=== PATIENT | male | born 1960 | race Caucasian/White ===

== ENCOUNTER → 2021-03-25 16:27 | Outpatient (CLI) | payer MEDICAID, SELFPAY ==
[2021-03-25 17:32] LABS: ALB/GLOB Ratio 0.8 RATIO (0.9-2.4); AST(SGOT) 19 U/L (15-37); Alanine Aminotransfer ALT/SGPT 23 U/L (16-61); Albumin, Serum 3.2 g/dL (3.2-5.0); Alkaline Phosphatase 77 U/L (45-117); Anion Gap 4 (5-15); BUN 17 mg/dL (7-18); BUN/Creat Ratio 11.6 RATIO (10-20); Chloride 105 mmol/L (98-107); Creatinine, Serum 1.46 mg/dL (0.70-1.30); EST Glomerular Filtration Rate 52 mL/min (>60); Est Glom Filt Rate - Afr Amer 63 mL/min (>60); Globulin 3.8 g/dL (2.2-4.2); Glucose 96 mg/dL (74-106); PSA,Total - Annual Screen 1.58 ng/mL (0.00-4.00); Potassium 4.4 mmol/L (3.5-5.1); Sodium Level 140 mmol/L (136-145); Thyroid Stim Hormone (TSH) 2.99 uIU/mL (0.358-3.74)
[2021-03-25 17:42] LABS: Absolute Lymphocyte Count 2.42 X10^3/uL (0.83-4.51); Absolute Neutrophil Count 3.7 X10^3/uL (2.0-7.7); Basophil# 0.06 X10^3/uL; Basophil% 0.9 % (0-1); Eosinophil# 0.35 X10^3/uL; Eosinophils% 5.1 % (0-5); Hematocrit 41.9 % (40-54); Hemoglobin 13.7 g/dL (13.0-16.5); Lymphocyte # 2.42 X10^3/ul (0.83-4.51); Lymphocyte % 35.3 % (19-41); Mean Corp Hgb Conc 32.7 g/dL (32-36); Mean Corpuscular Hgb 31.1 pg (27.0-32.0); Mean Platelet Vol. 9.5 fl (6.2-12.0); Monocyte# 0.32 X10^3/uL; Monocyte% 4.7 % (0-10); NRBC Flagged by Analyzer 0 % (0-5); Neutrophil # 3.69 X10^3/uL (2.7-7.7); Neutrophil % 53.9 % (47-70); Platelet Count 282 K/mm3 (150-450); RBC Distribution Width CV 12.1 % (11.6-14.6); RBC Distribution Width SD 42.3 fl (35.1-43.9); Red Blood Count 4.41 M/mm3 (4.6-6.2); White Blood Count 6.9 K/mm3 (4.4-11.0)
[2021-03-26 09:28] LABS: Hepatitis C Antibody Non-Reactive (Nonreactive)
== END ==
PROVIDERS: PCP Family Medicine Geriatric Medicine; Visit Provider Family Medicine Geriatric Medicine
DX: Z12.5 Encounter for screening for malignant neoplasm of prostate (principal); R53.83 Other fatigue; Z13.89 Encounter for screening for other disorder
CPT/HCPCS: 36415; 80053; 84153; 84443; 85025; 86803; G0103

== ENCOUNTER → 2021-04-03 07:29 | Outpatient (CLI) | payer MEDICAID, SELFPAY ==
--- NOTE | 2021-04-03 07:33 | CT_ITS ---
STUDY: LOW DOSE CT LUNG CANCER SCREENING REASON FOR EXAM: Male, 60 years old. CIGARETTE SMOKER. Patient smoked 1 pack per day for 44 years. RADIATION DOSAGE (If Supplied By Facility): CTDIvol = ( 2.01 ) mGy, DLP = ( 73.99 ) mGycm TECHNIQUE: No contrast was administered. Low dose technique was utilized (average mAS-38 and kVp 120). 1.25 mm axial source images with a slice interval of 1.25-mm were reconstructed in lung windows. 2.5 mm axial source images with a slice interval of 2.5-mm were reconstructed in lung windows. 5.0 mm axial source images with a slice interval of 5.0-mm were reconstructed in soft tissue windows. Nodule measured using lung windows on PACS and/or independent workstation with automated measurement of minimum and maximum diameter. Nodule measurement reported as average diameter rounded to the nearest whole number. Growth is defined as an increase ins size of greater than 1.5 mm. COMPARISON: None. NODULES: There is a 4.4 mm calcified granuloma in the left lower lobe. No suspicious nodules are seen. Emphysema: Mild emphysematous changes. Endobronchial lesion: None Aorta: Mild atherosclerotic plaque formation of the aortic arch. Coronary arteries: Coronary artery calcification. Heart: Unremarkable Mediastinal nodes: Benign appearing mediastinal lymph nodes. Other chest and abdominal findings: CT/Low Dose CT Lung Screening IMPRESSION: Lung-RADS category 2 - Continue annual screening with LDCT in 12 months. IMPORTANT NOTES FOR USE: ACR Lung-RADS Version 1.1 Assessment Categories Release Date: 2018 Category: Coded 0-4 bases on nodule(s) with highest degree of suspicion. Negative screen is defined as categories 1 and 2; a positive screen is defined as categories 3 and 4. Category 3 and 4A nodules that are unchanged on interval CT should be coded as category 2, and individuals returned to screening in 12 months. Category 4X: Category 3 or 4 nodules with additional imaging findings that increase the suspicion of lung cancer, such as spiculation, GGN that doubles in size in 1 year, enlarged lymph notes, etc. Category Modifiers: S (significant finding unrelated to lung cancer) Electronically Signed: Ronald Montilla MD at 13:08 EDT , Service support ,
== END ==
PROVIDERS: PCP Family Medicine Geriatric Medicine; Referring Provider Family Medicine Geriatric Medicine; Visit Provider Family Medicine Geriatric Medicine
DX: Z12.2 Encounter for screening for malignant neoplasm of respiratory organs (principal); F17.210 Nicotine dependence, cigarettes, uncomplicated
CPT/HCPCS: 71271

== ENCOUNTER → 2021-04-08 08:24 | Outpatient (CLI) | payer MEDICAID, SELFPAY | PROVIDERS: PCP Family Medicine Geriatric Medicine; Referring Provider Family Medicine Geriatric Medicine; Visit Provider Family Medicine Geriatric Medicine | DX: R68.83 Chills (without fever) (principal) | CPT/HCPCS: 87633; 87635; C9803; U0005; U0003 ==

== ENCOUNTER → 2021-05-07 08:03 | Outpatient (CLI) | payer MEDICAID, SELFPAY ==
--- NOTE | 2021-05-07 08:05 | CT_ITS ---
STUDY: CT ABDOMEN AND PELVIS WITH CONTRAST REASON FOR EXAM: Male, 60 years old. Right inguinal hernia. Prior appendectomy. RADIATION DOSAGE (If Supplied By Facility): CTDIvol = ( 9.75 ) mGy, DLP = ( 496.25 ) mGycm TECHNIQUE: Transaxial images were obtained from the dome of the diaphragm to the symphysis pubis without oral contrast. IV 100mL Isovue-300 was administered. Sagittal and coronal images were reconstructed. Individualized dose optimization techniques were used for this CT. COMPARISON: Comparison is made with prior examination dated 06/07/2012. FINDINGS: Minimal increased markings at the lung bases suggests lobar linear scarring. The visualized portions of the heart are within normal limits. Normal liver. Normal gallbladder and extrahepatic biliary system. Normal spleen. Normal pancreas. Normal bilateral adrenal glands. Normal right kidney. Normal left kidney. Normal visualized stomach. Normal small intestine. There are multiple colonic diverticula consistent with diverticulosis. Diffuse thickening of the sigmoid colon. Localized colitis should be ruled out. The patient is status post appendectomy. There is scattered atherosclerotic calcification of the abdominal aorta, without a demonstrated aneurysm. Normal inferior vena cava. Normal retroperitoneum. Normal urinary bladder. Small bilateral hydroceles worse on the right side. There is enlargement of the prostate gland. It measures 4.2 cm by 4.7 cm. Calcifications are seen along its posterior right lateral aspect. Normal abdominal wall. There are degenerative changes of the visualized lumbar spine. CT/Abdomen/Pelvis W IV Cont ONLY IMPRESSION: Prostatic enlargement. Thickening of the sigmoid colon suggestive of a colitis. Scattered sigmoid diverticula. Bilateral hydroceles more prominent on the right side. Electronically Signed: Ronald Montilla MD at 10:13 EST , Service support ,
== END ==
PROVIDERS: PCP Family Medicine Geriatric Medicine; Referring Provider Surgery; Visit Provider Surgery
DX: K40.90 Unilateral inguinal hernia, without obstruction or gangrene, not specified as recurrent (principal)
CPT/HCPCS: 74177; Q9967

== ENCOUNTER 2021-06-29 13:39 | Outpatient (CLI) | payer MEDICAID, SELFPAY ==
--- NOTE | 2021-06-29 13:50 | RAD_ITS ---
INDICATION: ABD.PAIN EXAMINATION/TECHNIQUE: X-RAY - XR Abdomen W/ Decub and/or Erect Views COMPARISON: None FINDINGS: BOWEL GAS PATTERN: Non-obstructive. No bowel or stomach distention. FREE AIR: None seen. ORGANOMEGALY: Not seen. CALCIFICATIONS: Few scattered bilateral renal calculi, largest on the right measuring 4 mm while largest on the left measures 3 mm. LOWER CHEST: No acute pathology. BONES AND SOFT TISSUES: Diffuse degenerative changes of the spine. RAD/Abd Inc Decub and/or Erect IMPRESSION: Few scattered bilateral renal calculi, largest on the right measuring 4 mm while largest on the left measures 3 mm. No other acute findings. Electronically Signed: Viktor Medel MD at 18:50 EST Tel , Service support ,
== END 2021-06-29 23:59 | disposition short-term general hospital (02) ==
LOC: RAD 13:43
PROVIDERS: PCP Family Medicine Geriatric Medicine; Referring Provider Family Medicine Geriatric Medicine; Visit Provider Family Medicine Geriatric Medicine
DX: N20.0 Calculus of kidney (principal)
CPT/HCPCS: 74019

== ENCOUNTER → 2021-11-23 | Outpatient (CLI) | payer MEDICAID, SELFPAY ==
[2021-11-23 12:34] LABS: Absolute Lymphocyte Count 1.83 X10^3/uL (0.83-4.51); Basophil# 0.09 X10^3/uL; Basophil% 0.9 % (0-1); Eosinophil# 0.56 X10^3/uL; Eosinophils% 5.6 % (0-5); Hematocrit 41.6 % (40-54); Lymphocyte # 1.83 X10^3/ul (0.83-4.51); Lymphocyte % 18.4 % (19-41); Mean Corp Hgb Conc 31.3 g/dL (32-36); Mean Corpuscular Hgb 29.7 pg (27.0-32.0); Mean Corpuscular Volume 95.2 fL (80-94); Mean Platelet Vol. 9.9 fl (6.2-12.0); Monocyte# 0.41 X10^3/uL; Monocyte% 4.1 % (0-10); NRBC Flagged by Analyzer 0 % (0-5); Neutrophil # 7.04 X10^3/uL (2.7-7.7); Neutrophil % 70.7 % (47-70); Platelet Count 467 K/mm3 (150-450); RBC Distribution Width CV 12.7 % (11.6-14.6); RBC Distribution Width SD 44.3 fl (35.1-43.9); Red Blood Count 4.37 M/mm3 (4.6-6.2)
[2021-11-23 13:39] LABS: ALB/GLOB Ratio 0.7 RATIO (0.9-2.4); AST(SGOT) 13 U/L (15-37); Alanine Aminotransfer ALT/SGPT 13 U/L (16-61); Albumin, Serum 3.1 g/dL (3.2-5.0); Alkaline Phosphatase 78 U/L (45-117); Anion Gap 6 (5-15); BUN 28 mg/dL (7-18); BUN/Creat Ratio 29.1 RATIO (10-20); Calcium,Total 9.4 mg/dL (8.5-10.1); Chloride 108 mmol/L (98-107); Creatinine, Serum 0.96 mg/dL (0.70-1.30); EST Glomerular Filtration Rate 84 mL/min (>60); Est Glom Filt Rate - Afr Amer 102 mL/min (>60); Globulin 4.5 g/dL (2.2-4.2); Glucose 97 mg/dL (74-106); Potassium 4.9 mmol/L (3.5-5.1); Protein, Total 7.6 g/dL (6.4-8.2); Sodium Level 139 mmol/L (136-145); Thyroid Stim Hormone (TSH) 1.15 uIU/mL (0.358-3.74); Total Bilirubin < 0.10 mg/dL (0.20-1.00)
== END | disposition home or self-care (01) ==
LOC: LAB 11:05
PROVIDERS: PCP Family Medicine Geriatric Medicine; Referring Provider Family Medicine Geriatric Medicine; Visit Provider Family Medicine Geriatric Medicine
DX: I10 Essential (primary) hypertension (principal)
CPT/HCPCS: 36415; 80053; 84443; 85025

== ENCOUNTER 2022-01-11 05:28 | Inpatient (IN) | payer MEDICAID, SELFPAY ==
[2022-01-11 05:29] VITALS: BP 111/78; PULSE 97; RESP 17; TEMP 37.1; O2SAT 111; BMI 18.6
--- NOTE | 2022-01-11 05:43 | CT_ITS ---
We are attempting to reach an attending provider to discuss findings. An addendum with communication details will be sent when the communication is complete. EXAM: CT ABDOMEN AND PELVIS WITH INTRAVENOUS CONTRAST CLINICAL INDICATION: abd pain TECHNIQUE: Helically acquired images were obtained of the abdomen and pelvis with intravenous contrast. This CT exam was performed using one or more of the following dose reduction techniques: automated exposure control, adjustment of the mA and/or kV according to patient size, and/or use of iterative reconstruction technique. This report was created using [facility] report [employer] technology. CONTRAST: IV 100mL Isovue-300 COMPARISON: CT of 05/07/2021. FINDINGS: LOWER THORAX: Unremarkable. Lung bases are clear. No cardiomegaly. No significant pericardial effusion. ABDOMEN: LIVER: Mild fatty infiltration of the liver. Right hepatic lobe measures 16 cm in cephalocaudal dimension, within normal limits. GALLBLADDER AND BILE DUCTS: Unremarkable. No calcified gallstones. No gallbladder distention or wall edema. No intra- or extrahepatic biliary ductal dilation. PANCREAS: Main pancreatic duct is visualized and is upper normal in caliber measuring up to 3 mm in diameter. No findings of acute pancreatitis or pancreatic mass. VESSELS: Minimal calcific abdominal aorta and its branches. The abdominal aorta is normal in caliber. SMA and KATERIN enhance normally. SPLEEN: Unremarkable. Normal size without focal cystic or solid mass. ADRENALS: Unremarkable. No nodules. KIDNEYS AND URETERS: Mild thinning of the anterior cortex of the right kidney. Multiple nonobstructing right renal calculi, measuring up to 4 mm in diameter. Small wedge-shaped cortical scar at the upper pole of the left kidney. Small simple left renal cyst which requires no follow-up. Punctate nonobstructing stone within the left renal upper pole collecting system. No hydronephrosis or obstructing ureteral stone. STOMACH AND BOWEL: Stomach is decompressed. No periduodenal inflammatory changes or distended small bowel loops. A long segment of mid sigmoid colon shows severe abnormal mural thickening and edema, while the distal sigmoid colon shows a mildly thickened wall. Due to the length of this abnormal segment, the mural thickening and edema is more likely due to colitis rather than diverticulitis. The antimesenteric wall is more thickened and edematous than the mesenteric wall of the thick-walled sigmoid segment, with air bubbles tracking through the thickened antimesenteric wall, and with a cluster of extraluminal gas bubbles posterior to the thick walled segment of mid-sigmoid segment. The clustered extraluminal bubbles lie within a ring enhancing pocket of fluid measuring up to 3.4 cm in transverse diameter by 2.4 cm in AP diameter by 1.8 cm in cephalocaudal dimension. There is more gas than fluid within this pocket. There is enhancement of the mucosa in the thick-walled segment, but the gas within the bowel wall and bubbles of extraluminal gas raise the possibility of bowel wall necrosis and subsequent perforation. Uncomplicated diverticula project from the sigmoid colon. PELVIS: APPENDIX: Absent. No evidence of acute appendicitis. BLADDER: Urinary bladder is nearly empty. REPRODUCTIVE: Mildly prominent prostate gland containing numerous surgical clips or radiation implant seeds. ABDOMEN and PELVIS: INTRAPERITONEAL SPACE: No free fluid within the pelvis. No bubbles free air within the nondependent portion of the abdomen or pelvis. BONES/JOINTS: Degenerative spurring about the lumbar disc spaces. No acute osseous abnormality. No suspicious lytic or blastic abnormality. SOFT TISSUES: Unremarkable. No discrete abdominal or pelvic wall hernia. LYMPH NODES: Unremarkable. No enlarged lymph nodes. OTHER FINDINGS: Dosage: DLP: 228.22 mGy-cm and CTDI: 12.[address]/Abdomen/Pelvis W IV Cont ONLY IMPRESSION: Long segment of abnormally thickened and edematous sigmoid wall, consistent with a severe colitis; air bubbles track through the thickened posterior wall of this segment into a 3 cm pocket of ring-enhancing fluid and air bubbles, indicating perforation with pericolonic abscess. Bilateral renal calculi. No obstructing ureteral stone or hydronephrosis. Prior appendectomy. No findings of small bowel obstruction. Nonstandard communication protocol initiated. Electronically Signed: Miguelangel Hopper MD at 7:39 EDT ,
[2022-01-11] MEDS: Ondansetron 4 MG/2 ML Vial IV (05:51)
[2022-01-11] MEDS: 0.9% Normal Saline 1,000 ML 150 ML IV (05:51)
[2022-01-11] MEDS: Morphine 4 MG/ML Syringe IV (05:52)
[2022-01-11 05:57] LABS: Absolute Lymphocyte Count 2.17 X10^3/uL (0.83-4.51); Absolute Neutrophil Count 5.8 X10^3/uL (2.0-7.7); Basophil# 0.05 X10^3/uL; Basophil% 0.6 % (0-1); Eosinophil# 0.42 X10^3/uL; Eosinophils% 4.7 % (0-5); Hematocrit 41.6 % (40-54); Hemoglobin 13.4 g/dL (13.0-16.5); Lymphocyte # 2.17 X10^3/ul (0.83-4.51); Lymphocyte % 24.1 % (19-41); Mean Corp Hgb Conc 32.2 g/dL (32-36); Mean Corpuscular Volume 93.3 fL (80-94); Mean Platelet Vol. 9.2 fl (6.2-12.0); Monocyte% 5.5 % (0-10); NRBC Flagged by Analyzer 0 % (0-5); Neutrophil # 5.84 X10^3/uL (2.7-7.7); Neutrophil % 64.8 % (47-70); Platelet Count 354 K/mm3 (150-450); RBC Distribution Width CV 13.5 % (11.6-14.6); RBC Distribution Width SD 46.1 fl (35.1-43.9); Red Blood Count 4.46 M/mm3 (4.6-6.2)
[2022-01-11 06:16] LABS: AST(SGOT) 14 U/L (15-37); Alanine Aminotransfer ALT/SGPT 16 U/L (16-61); Alkaline Phosphatase 66 U/L (45-117); Anion Gap 1 (5-15); BUN 21 mg/dL (7-18); BUN/Creat Ratio 21.9 RATIO (10-20); Bilirubin, Direct 0.07 mg/dL (0.00-0.30); Calcium,Total 9.1 mg/dL (8.5-10.1); Chloride 105 mmol/L (98-107); Creatinine, Serum 0.96 mg/dL (0.70-1.30); EST Glomerular Filtration Rate 84 mL/min (>60); Est Glom Filt Rate - Afr Amer 102 mL/min (>60); Estimated Creatinine Clearance 62.05 ml/min; Globulin 4.2 g/dL (2.2-4.2); Glucose 101 mg/dL (74-106); Lipase 137 U/L (73-393); Potassium 4.2 mmol/L (3.5-5.1); Protein, Total 7.2 g/dL (6.4-8.2); Sodium Level 138 mmol/L (136-145)
--- NOTE | 2022-01-11 06:52 | EX.ED.DYSGE1 ---
HPI <Dr. Ysabel العلي MD - Last Filed: 01/11/22 08:32> History of Present Illness Chief Complaint: Abd Pain Informant: patient Onset/Context/Timing Onset: - (Worsened yesterday) Current Severity: Moderate Maximum Severity: Severe Narrative Narrative: Patient present secondary to lower abdominal pain. He has a history of complicated diverticulitis and has been following with Dr. Gonzáles. Patient finished his most recent course of antibiotics in early December. Patient states he is continue to had daily pain but it significantly worsened yesterday. He did have some mild diarrhea yesterday. He also had some vomiting. He reports feeling warm but did not measure his temperature. PFSH <Dr. Ysabel العلي MD - Last Filed: 01/11/22 08:32> [facility] Medical History Acid reflux COPD (chronic obstructive pulmonary disease) Depression Emphysema (subcutaneous) (surgical) resulting from a procedure Hemorrhoids HTN (hypertension) Migraines Home Medications [id number]-[id number]-[id number] 250 mg-250 mg-65 mg tablet (Excedrin Extra Strength) 1 tab PO ONCE 03/31/21 [History Last Taken Unknown] escitalopram oxalate 5 mg tablet (Lexapro) ea PO 03/31/21 [History Last Taken Unknown] hydrocortisone 1 % topical ointment gm topical 03/31/21 [History Last Taken Unknown] metoprolol succinate 25 mg tablet,extended release 24 hr ea PO 03/31/21 [History Last Taken Unknown] tamsulosin 0.4 mg capsule cap PO 03/31/21 [History Last Taken Unknown] Allergy/AdvReac Type Severity Reaction Status Date / Time No Known Allergies Allergy Verified 01/11/22 05:32 Family History Uncle Colon cancer x 3 Father Heart disease Surgical History S/P appendectomy S/P inguinal hernia repair Social History Smoking Status: Current every day smoker tobacco type: cigarettes alcohol intake: never ROS <Dr. Ysabel العلي MD - Last Filed: 01/11/22 08:32> ROS ED Constitutional Constitutional ED: Reports fever(s) and subjective Eyes Eyes: Denies change in vision or discharge from eye(s) ENT ENT ED: Denies discharge from eye(s), rhinorrhea or sore throat Cardiovascular Cardiovascular: Denies chest pain or palpitations Respiratory/Chest Respiratory/Chest: Denies cough or dyspnea Gastrointestinal Gastrointestinal: Reports abdominal pain, diarrhea, nausea and vomiting Genitourinary Genitourinary ED: Denies difficulty urinating or dysuria Musculoskeletal Musculoskeletal: Denies back pain or extremity pain Integumentary Denies Abrasions or rash Neurologic Neurologic: Denies headache(s) or weakness Allergic/Immunologic Allergic/Immunologic ED: Denies lip swelling or urticaria EXAM <Dr. Ysabel العلي MD - Last Filed: 01/11/22 08:32> Physical Exam Const Vital Signs: 01/11/22 05:29 01/11/22 08:14 Temperature 98.8 F 98.5 F Temperature Source Temporal Oral Pulse Rate 97 53 L Respiratory Rate 17 16 Blood Pressure 111/78 106/70 Blood Pressure Mean 89 82 Pulse Ox 111 98 Oxygen Delivery Method Room Air Room Air Positive well nourished and well developed General Appearance ED: well developed HEENT Reports normocephalic and head/scalp atraumatic Eyes PERRL and EOMs intact bilaterally Neck supple Chest Wall inspection of chest normal and palpation of chest normal Resp normal respiratory effort and clear to auscultation bilaterally Cardio regular rate and regular rhythm GI normal to inspection, nondistended, normoactive bowel sounds Palpation: tender other (Diffuse tenderness palpation.) and guarding Back/Spine Negative for no CVA tenderness Extremity normal to inspection Neuro oriented x3 and no sensory deficits noted Sensorium / Orientation: alert Motor Exam: strength 5/5 throughout Psych mental status grossly normal Skin no rashes or lesions noted <Dr. Tor Mercado DO - Last Filed: 01/11/22 09:35> Physical Exam Const Vital Signs: 01/11/22 05:29 01/11/22 08:14 Temperature 98.8 F 98.5 F Temperature Source Temporal Oral Pulse Rate 97 53 L Respiratory Rate 17 16 Blood Pressure 111/78 106/70 Blood Pressure Mean 89 82 Pulse Ox 111 98 Oxygen Delivery Method Room Air Room Air MDM <Dr. Ysabel العلي MD - Last Filed: 01/11/22 08:32> MDM MDM Narrative Medical decision making narrative: Patient given morphine and Zofran for pain control along with IV fluids. Lab work obtained as well as CT scan of the abdomen pelvis. Lab Data Attestation: I reviewed the patient's lab results. Labs: Laboratory Results - last 24 hr 01/11/22 01/11/22 01/11/22 05:51 05:51 05:52 WBC 9.0 RBC 4.46 L Hgb 13.4 Hct 41.6 MCV 93.3 MCH 30.0 MCHC 32.2 RDW Std Deviation 46.1 H RDW Coeff of Loc 13.5 Plt Count 354 MPV 9.2 Immature Gran % (Auto) 0.300 Neut % (Auto) 64.8 Lymph % (Auto) 24.1 [place] % (Auto) 5.5 Eos % (Auto) 4.7 Baso % (Auto) 0.6 Absolute Neuts (auto) 5.8 Absolute Lymphs (auto) 2.17 Nucleated RBC % 0 Sodium 138 Potassium 4.2 Chloride 105 Carbon Dioxide 32.0 Anion Gap 1 L BUN 21 H Creatinine 0.96 Estim Creat Clear Calc 62.05 Est GFR (MDRD) Af Amer 102 Est GFR (MDRD) Non-Af 84 BUN/Creatinine Ratio 21.9 H Glucose 101 Lactic Acid 0.8 Calcium 9.1 Total Bilirubin 0.20 Direct Bilirubin 0.07 AST 14 L ALT 16 Alkaline Phosphatase 66 Total Protein 7.2 Albumin 3.0 L Globulin 4.2 Lipase 137 Radiography Diagnostic Testing: Clinical Impression(s) from Imaging Studies Abdomen/Pelvis CT 01/11/22 05:43 IMPRESSION: Long segment of abnormally thickened and edematous sigmoid wall, consistent with a severe colitis; air bubbles track through the thickened posterior wall of this segment into a 3 cm pocket of ring-enhancing fluid and air bubbles, indicating perforation with pericolonic abscess. Bilateral renal calculi. No obstructing ureteral stone or hydronephrosis. Prior appendectomy. No findings of small bowel obstruction. Nonstandard communication protocol initiated. Electronically Signed: Miguelangel Hopper MD at 7:39 EDT , ADDENDUM: 01/11/22 0801 IMPRESSION: Long segment of abnormally thickened and edematous sigmoid wall, consistent with a severe colitis; air bubbles track through the thickened posterior wall of this segment into a 3 cm pocket of ring-enhancing fluid and air bubbles, indicating perforation with pericolonic abscess. Bilateral renal calculi. No obstructing ureteral stone or hydronephrosis. Prior appendectomy. No findings of small bowel obstruction. Nonstandard communication protocol initiated. N.B. : The above Results were Read Back by Miguelangel Hopper MD to Ysabel العلي MD, and understanding confirmed on 01/11/2022 07:54:27 (ET). Electronically Signed: Miguelangel Hopper MD at 7:39 EDT , Treatment and Re-Evaluation Narrative: CBC was normal white count with normal differential. Chemistry studies unremarkable. Lactic acid is normal. CT scan reveals a long segment of thickened and edematous sigmoid wall consistent with colitis. There is evidence of air bubbles tracking through the posterior wall into a 3 cm pocket of air and fluid consistent with an abscess. Patient is given a dose of Zosyn. Findings are discussed with Dr. Gonzáles, patient's surgeon who is been treating him for this condition. He will be down to see the patient. <Dr. Tor Mercado, DO - Last Filed: 01/11/22 09:35> [facility] Lab Data Labs: Laboratory Results - last 24 hr 01/11/22 01/11/22 01/11/22 05:51 05:51 05:52 WBC 9.0 RBC 4.46 L Hgb 13.4 Hct 41.6 MCV 93.3 MCH 30.0 MCHC 32.2 RDW Std Deviation 46.1 H RDW Coeff of Loc 13.5 Plt Count 354 MPV 9.2 Immature Gran % (Auto) 0.300 Neut % (Auto) 64.8 Lymph % (Auto) 24.1 [place] % (Auto) 5.5 Eos % (Auto) 4.7 Baso % (Auto) 0.6 Absolute Neuts (auto) 5.8 Absolute Lymphs (auto) 2.17 Nucleated RBC % 0 Sodium 138 Potassium 4.2 Chloride 105 Carbon Dioxide 32.0 Anion Gap 1 L BUN 21 H Creatinine 0.96 Estim Creat Clear Calc 62.05 Est GFR (MDRD) Af Amer 102 Est GFR (MDRD) Non-Af 84 BUN/Creatinine Ratio 21.9 H Glucose 101 Lactic Acid 0.8 Calcium 9.1 Total Bilirubin 0.20 Direct Bilirubin 0.07 AST 14 L ALT 16 Alkaline Phosphatase 66 Total Protein 7.2 Albumin 3.0 L Globulin 4.2 Lipase 137 Radiography Diagnostic Testing: Clinical Impression(s) from Imaging Studies Abdomen/Pelvis CT 01/11/22 05:43 IMPRESSION: Long segment of abnormally thickened and edematous sigmoid wall, consistent with a severe colitis; air bubbles track through the thickened posterior wall of this segment into a 3 cm pocket of ring-enhancing fluid and air bubbles, indicating perforation with pericolonic abscess. Bilateral renal calculi. No obstructing ureteral stone or hydronephrosis. Prior appendectomy. No findings of small bowel obstruction. Nonstandard communication protocol initiated. Electronically Signed: Miguelangel Hopper MD at 7:39 EDT , ADDENDUM: 01/11/22 0801 IMPRESSION: Long segment of abnormally thickened and edematous sigmoid wall, consistent with a severe colitis; air bubbles track through the thickened posterior wall of this segment into a 3 cm pocket of ring-enhancing fluid and air bubbles, indicating perforation with pericolonic abscess. Bilateral renal calculi. No obstructing ureteral stone or hydronephrosis. Prior appendectomy. No findings of small bowel obstruction. Nonstandard communication protocol initiated. N.B. : The above Results were Read Back by Miguelangel Hopper MD to Ysabel العلي MD, and understanding confirmed on 01/11/2022 07:54:27 (ET). Electronically Signed: Miguelangel Hopper MD at 7:39 EDT , Treatment and Re-Evaluation Narrative: CBC was normal white count with normal differential. Chemistry studies unremarkable. Lactic acid is normal. CT scan reveals a long segment of thickened and edematous sigmoid wall consistent with colitis. There is evidence of air bubbles tracking through the posterior wall into a 3 cm pocket of air and fluid consistent with an abscess. Patient is given a dose of Zosyn. Findings are discussed with Dr. Gonzáles, patient's surgeon who is been treating him for this condition. He will be down to see the patient. 0934: Signed out to me pending surgery evaluation. Dr. Gonzáles evaluated imaging feels contained perforation. He will admit under his service he request I speak with hospitalist for consult in the hospital. Plans per discussion for IR drain tube at this time and monitoring symptoms with antibiotics. I spoke with Dr. Sandoval discussed patient's history and findings for inpatient consult. Discharge Plan Dx/Rx/DC Orders Clinical Impression: Colitis, Bowel perforation, Abscess, Abdominal pain Disposition Disposition: Acute Care Hospital [facility]
[2022-01-11 06:59] LABS: Lactic Acid 0.8 mmol/L (0.4-1.9)
[2022-01-11 08:14] VITALS: BP 106/70; PULSE 53; RESP 16; TEMP 36.9; O2SAT 98
--- NOTE | 2022-01-11 09:33 | CON.PCM.HO_ITS ---
Assessment & Plan Assessment/Plan (1) COPD (chronic obstructive pulmonary disease): (2) HTN (hypertension): (3) Diverticulitis: (4) Colitis: (5) Bowel perforation: (6) Abscess: PLAN: Plan #Acute diverticulitis ith possible abscess formation * admit to med surg under service of general surgery * management as per general surgery * on IV cefepime and metronidazole * #COPD: not in exacerbation. On breathing treatment with bronchodilators #Hypertension: continue current BP meds- metoprolol #Nicotine dependence: counseled to quit. Refuses nicotine patch #BPH: on flomax DVT prophylaxis: SCDs as per primary service Thank you for the consult. We will continue to follow with you. HPI Consult Data Date of Consult: 01/11/22 Attending Care Provider: Dr Santiago HPI Narrative Reason for Consultation: medical management HPI Narrative: LUIS HERRMANN, is a 61 M with a PMH as outlined who presents via the ED with a complaint of abdominal pain. Pain was in the right lower quadrant, nonradiating, with no aggravating or relieving factors. He has a known history of diverticulitis and hemorrhoids. He had been following up with general surgery on outpatient basis and had taken a course of oral antibiotics about a month ago. He had been due to follow up on outpatient basis with general surgery but didnt make the appointment. He then started having severe abdominal pain, with the nausea and diarrhea. He denied any fever or chills. REview of systems was otherwise negative. Vitals were BP of 106/70, IL of 98, RR of 16 and temp of 98.5F. He was on room air. CBC showed wbc of 9, and BMP was unremarkable. CT of the abdomen and pelvis showed acute sigmoid diverticulitis with a 2 cm x 2.1 cm extraluminal collection of air along the anterior third segment of the distal colon with no e vidence of fluid collection seen. Of note he had an earlier CT scan of the abdomen and pelvis done on admission in the ER early this morning which showed a long segment of abnormally thickened and edematous sigmoid wall consistent with severe colitis and air bubbles which tracked through the thickened posterior wall of the segment into a 3 cm pocket of ring-enhancing fluid and air bubbles indicating perforation with pericolonic abscess. He was therefore admitted to the service of general surgery to be managed for acute diverticulitis and colitis with pericolonic abscess and perforation. Hospitalist service was consulted for medical management. [facility] Medical History Acid reflux COPD (chronic obstructive pulmonary disease) Depression Emphysema (subcutaneous) (surgical) resulting from a procedure Hemorrhoids HTN (hypertension) Migraines Home Medications tamsulosin 0.4 mg capsule cap PO Check with primary doctor 03/31/21 [History Last Taken 01/10/22] Allergy/AdvReac Type Severity Reaction Status Date / Time No Known Allergies Allergy Verified 01/11/22 05:32 Family History Uncle Colon cancer x 3 Father Heart disease Surgical History S/P appendectomy S/P inguinal hernia repair Social History Smoking Status: Current every day smoker tobacco type: cigarettes alcohol intake: never ROS Constitutional Constitutional: Denies anorexia, change in weight, chills, fatigue, fever(s), malaise or weakness Eyes Eyes: Denies change in vision ENT HEENT: Denies dysphagia, headache(s), nasal congestion or sore throat Cardiovascular Cardiovascular: Denies chest pain, dyspnea on exertion, edema, lightheadedness, orthopnea, palpitations, paroxysmal nocturnal dyspnea, rapid heart rate or syncope Respiratory/Chest Respiratory/Chest: Denies cough, dyspnea, productive cough, shortness of breath at rest or shortness of breath with exertion Gastrointestinal Gastrointestinal: Reports abdominal pain, diarrhea and nausea; Denies constipation, dyspepsia, melena or vomiting Genitourinary Genitourinary: Denies difficulty urinating or dysuria Musculoskeletal Musculoskeletal: Denies arthralgias, back pain or joint swelling Neurologic Neurologic: Denies confusion, dizziness, focal weakness, headache(s), numbness, seizures or syncope Psychiatric Psychiatric: Denies anxiety or depression Endocrine Endocrinology: Denies change in body appearance Hematologic/Lymphatic Hematologic/Lymphatic: Denies anemia Physical Exam Const alert, oriented x3 and no apparent distress General Appearance: cooperative HEENT normocephalic, head/scalp atraumatic, hearing grossly normal bilaterally and moist oral mucous membranes Mouth: oral and palatal mucosa normal Eyes PERRL, EOMs intact bilaterally and conjunctivae normal Neck no lymphadenopathy, supple and no JVD Resp normal respiratory effort, no retractions, no use of accessory muscles and clear to auscultation bilaterally Cardio regular rate, regular rhythm, S1 normal heart sound, S2 normal heart sound and no murmurs GI normal to inspection, nondistended, normoactive bowel sounds GI Narrative: moderate right lower quadrant pain, no guarding or rebound tenderness Palpation: tender Extremity normal to inspection, full ROM and no clubbing, cyanosis or edema General Extremity: edema Neuro oriented x3, CN's II-XII intact bilaterally, moves all extremities and no focal motor deficits Sensorium / Orientation: awake and alert Motor Exam: strength 5/5 throughout Psych affect normal Lab / Micro Data Result Diagrams: 01/11/22 05:51 01/11/22 05:51 Labs: Laboratory Results - last 24 hr 01/11/22 05:51: WBC 9.0, RBC 4.46 L, Hgb 13.4, Hct 41.6, MCV 93.3, MCH 30.0, MCHC 32.2, RDW Std Deviation 46.1 H, RDW Coeff of Loc 13.5, Plt Count 354, MPV 9.2, Immature Gran % (Auto) 0.300, Neut % (Auto) 64.8, Lymph % (Auto) 24.1, [place] % (Auto) 5.5, Eos % (Auto) 4.7, Baso % (Auto) 0.6, Absolute Neuts (auto) 5.8, Absolute Lymphs (auto) 2.17, Nucleated RBC % 0 01/11/22 05:51: Sodium 138, Potassium 4.2, Chloride 105, Carbon Dioxide 32.0, A nion Gap 1 L, BUN 21 H, Creatinine 0.96, Estim Creat Clear Calc 62.05, Est GFR (MDRD) Af Amer 102, Est GFR (MDRD) Non-Af 84, BUN/Creatinine Ratio 21.9 H, Glucose 101, Calcium 9.1, Total Bilirubin 0.20, Direct Bilirubin 0.07, AST 14 L, ALT 16, Alkaline Phosphatase 66, Total Protein 7.2, Albumin 3.0 L, Globulin 4.2, Lipase 137 01/11/22 05:52: Lactic Acid 0.8 Radiology Impression Abdomen/Pelvis CT 01/11/22 05:43 IMPRESSION: Long segment of abnormally thickened and edematous sigmoid wall, consistent with a severe colitis; air bubbles track through the thickened posterior wall of this segment into a 3 cm pocket of ring-enhancing fluid and air bubbles, indicating perforation with pericolonic abscess. Bilateral renal calculi. No obstructing ureteral stone or hydronephrosis. Prior appendectomy. No findings of small bowel obstruction. Nonstandard communication protocol initiated. Electronically Signed: Miguelangel Hopper MD at 7:39 EDT , ADDENDUM: 01/11/22 0801 IMPRESSION: Long segment of abnormally thickened and edematous sigmoid wall, consistent with a severe colitis; air bubbles track through the thickened posterior wall of this segment into a 3 cm pocket of ring-enhancing fluid and air bubbles, indicating perforation with pericolonic abscess. Bilateral renal calculi. No obstructing ureteral stone or hydronephrosis. Prior appendectomy. No findings of small bowel obstruction. Nonstandard communication protocol initiated. N.B. : The above Results were Read Back by Miguelangel Hopper MD to Ysabel العلي MD, and understanding confirmed on 01/11/2022 07:54:27 (ET). Electronically Signed: Miguelangel Hopper MD at 7:39 EDT , Charges/Coding Visit Charges Office Visits / Consults: 32610 IP Consult L4
--- NOTE | 2022-01-11 10:12 | PCM.HP.STD ---
HPI - General General Date of Admission: 01/11/22 HPI Narrative LUIS HASSAN, is a 61 M who presents to [facility] with complaints of acutely worsened abdominal pain and some nausea/diarrhea. He is well-known to me for first a history of hemorrhoids and later a history of diverticulitis. Over the last 1 month we have been through a course of oral antibiotics and we are awaiting a point which we could perform a interval colonoscopy to evaluate for the extent of disease. Mr. Hassan was due to follow-up with me on 01/07/2022 as an outpatient but states that he forgot our appointment. He states that he was overall feeling better until 2 days ago when he started with the abdominal pain, nausea, and diarrhea. He states he has had some subjective chills as well, but denies any objective evidence of fever. ER work-up was performed and notable for normal CBC, but CT of the abdomen and pelvis that is suggestive of severe colitis and a contained perforation. [facility] Medical History Acid reflux COPD (chronic obstructive pulmonary disease) Depression Emphysema (subcutaneous) (surgical) resulting from a procedure Hemorrhoids HTN (hypertension) Migraines Home Medications [id number] 250 mg-250 mg-65 mg tablet (Excedrin Extra Strength) 1 tab PO ONCE 03/31/21 [History Last Taken Unknown] escitalopram oxalate 5 mg tablet (Lexapro) ea PO 03/31/21 [History Last Taken Unknown] hydrocortisone 1 % topical ointment gm topical 03/31/21 [History Last Taken Unknown] metoprolol succinate 25 mg tablet,extended release 24 hr ea PO 03/31/21 [History Last Taken Unknown] tamsulosin 0.4 mg capsule cap PO 03/31/21 [History Last Taken Unknown] Allergy/AdvReac Type Severity Reaction Status Date / Time No Known Allergies Allergy Verified 01/11/22 05:32 Family History Uncle Colon cancer x 3 Father Heart disease Surgical History S/P appendectomy S/P inguinal hernia repair Social History Smoking Status: Current every day smoker tobacco type: cigarettes alcohol intake: never Vital Signs Vital Signs Vital Signs: 01/11/22 05:29 01/11/22 08:14 Temperature 98.8 F 98.5 F Temperature Source Temporal Oral Pulse Rate 97 53 L Respiratory Rate 17 16 Blood Pressure 111/78 106/70 Blood Pressure Mean 89 82 Pulse Ox 111 98 Oxygen Delivery Method Room Air Room Air Weight Weight: 122 lb 12.76 oz Body Mass Index (BMI) 18.6 Physical Exam Const alert and oriented x3 Constitutional Narrative: Mild distress, the patient states that he must use the restroom urgently Resp normal respiratory effort GI GI Narrative: Nondistended, soft, mildly tender to palpation right greater than left lower quadrants. Mild voluntary guarding present. Results Lab / Micro Data Result Diagrams: 01/11/22 05:51 01/11/22 05:51 Labs: Laboratory Results - last 24 hr 01/11/22 05:51: WBC 9.0, RBC 4.46 L, Hgb 13.4, Hct 41.6, MCV 93.3, MCH 30.0, MCHC 32.2, RDW Std Deviation 46.1 H, RDW Coeff of Loc 13.5, Plt Count 354, MPV 9.2, Immature Gran % (Auto) 0.300, Neut % (Auto) 64.8, Lymph % (Auto) 24.1, [place] % (Auto) 5.5, Eos % (Auto) 4.7, Baso % (Auto) 0.6, Absolute Neuts (auto) 5.8, Absolute Lymphs (auto) 2.17, Nucleated RBC % 0 01/11/22 05:51: Sodium 138, Potassium 4.2, Chloride 105, Carbon Dioxide 32.0, Anion Gap 1 L, BUN 21 H, Creatinine 0.96, Estim Creat Clear Calc 62.05, Est GFR (MDRD) Af Amer 102, Est GFR (MDRD) Non-Af 84, BUN/Creatinine Ratio 21.9 H, Glucose 101, Calcium 9.1, Total Bilirubin 0.20, Direct Bilirubin 0.07, AST 14 L, ALT 16, Alkaline Phosphatase 66, Total Protein 7.2, Albumin 3.0 L, Globulin 4.2, Lipase 137 01/11/22 05:52: Lactic Acid 0.8 Radiology Impression Abdomen/Pelvis CT 01/11/22 05:43 IMPRESSION: Long segment of abnormally thickened and edematous sigmoid wall, consistent with a severe colitis; air bubbles track through the thickened posterior wall of this segment into a 3 cm pocket of ring-enhancing fluid and air bubbles, indicating perforation with pericolonic abscess. Bilateral renal calculi. No obstructing ureteral stone or hydronephrosis. Prior appendectomy. No findings of small bowel obstruction. Nonstandard communication protocol initiated. Electronically Signed: Miguelangel Hopper MD at 7:39 EDT , ADDENDUM: 01/11/22 0801 IMPRESSION: Long segment of abnormally thickened and edematous sigmoid wall, consistent with a severe colitis; air bubbles track through the thickened posterior wall of this segment into a 3 cm pocket of ring-enhancing fluid and air bubbles, indicating perforation with pericolonic abscess. Bilateral renal calculi. No obstructing ureteral stone or hydronephrosis. Prior appendectomy. No findings of small bowel obstruction. Nonstandard communication protocol initiated. N.B. : The above Results were Read Back by Miguelangel Hopper MD to Ysabel العلي MD, and understanding confirmed on 01/11/2022 07:54:27 (ET). Electronically Signed: Miguelangel Hopper MD at 7:39 EDT , Assessment & Plan Assessment/Plan (1) Diverticulitis: PLAN: This is a 61-year-old male with smoldering diverticulitis who presents for acute exacerbation of his symptoms. With exam, he has some tenderness, but his pain seems mostly referred to the right side of his abdomen. He does not exhibit peritoneal signs. His laboratories are normal off antibiotics. I have reviewed his CT imaging with our in-house radiologist and there is some question as to whether patient is extracolonic air represents a redundant loop of his sigmoid colon versus a true phlegmon/abscess. We have resolved to perform a repeat CT with per rectal contrast as a means of better defining this area. We will engage the hospitalist service for assistance with patient's other medical comorbidities. Neuro: As needed Dilaudid Pulm/CV: Incentive spirometer, continue home metoprolol FEN/GI: Trend daily labs, n.p.o. except sips with meds and ice chips, obtain CT as above : Continue home Flomax given prostate history Heme/ID: Trend CBC, cefepime and Flagyl empirically Endo: No current issues Proph: Encourage ambulation and use of incentive spirometer, will hold on chemoprophylaxis at present Dispo: Admit to inpatient stay
[2022-01-11 10:53] VITALS: BMI 18.6
[2022-01-11] MEDS: 0.9% Normal Saline 1,000 ML 100 ML IV ×2 (11:20→23:15)
--- NOTE | 2022-01-11 11:45 | CT_ITS ---
STUDY: CT ABDOMEN AND PELVIS WITHOUT CONTRAST REASON FOR EXAM: Male, 61 years old. Acute diverticulitis -- With rectal contrast. Atten: poss sigmoid abscess RADIATION DOSAGE (If Supplied By Facility): CTDIvol = ( 6.04 ) mGy, DLP = ( 286.91 ) mGycm TECHNIQUE: Transaxial images were obtained from the dome of the diaphragm to the symphysis pubis without oral contrast, and without intravenous contrast. Sagittal and coronal images were reconstructed. Individualized dose optimization techniques were used for this CT. COMPARISON: Comparison is made with prior study done earlier in the day. FINDINGS: Calcified granuloma in the left lower lobe. The visualized portions of the heart are within normal limits. Normal liver. Normal gallbladder and extrahepatic biliary system. Normal spleen. Normal pancreas. Normal bilateral adrenal glands. Normal right kidney. Normal left kidney. Normal visualized stomach. Normal small intestine. There is diverticulosis, with thickening of the colon wall, and pericolonic inflammation changes consistent with acute diverticulitis. There is evidence of a 2 cm x 2.1 cm extraluminal collection of air along the antimesenteric side of the sigmoid colon as seen on axial image #95. The patient is status post appendectomy. There is diffuse atherosclerotic calcification of the abdominal aorta, without a demonstrated aneurysm. Normal inferior vena cava. Normal retroperitoneum. Normal urinary bladder. Metallic seeds are seen within the prostate gland. Normal abdominal wall. There are diffuse degenerative changes of the visualized lumbar spine. CT/Abdomen/Pelvis without Cont IMPRESSION: Findings include with acute sigmoid diverticulitis. 2 cm x 2.1 cm extraluminal collection of air along the anterior third segment of the sigmoid colon. No evidence of fluid collection is seen. Electronically Signed: Ronald Montilla MD at 12:12 EDT ,
[2022-01-11] MEDS: metroNIDAZOLE 500 MG/100 ML BAG 100 MG IV ×2 (14:01→23:06)
[2022-01-11 15:57] VITALS: BP 104/77; PULSE 55; RESP 18; TEMP 36.9; O2SAT 98
[2022-01-11] MEDS: Acetaminophen 325 MG Tablet 650 MG PO ×2 (16:02→23:09)
[2022-01-11 21:57] VITALS: BP 121/75; PULSE 74; RESP 16; TEMP 36.7; O2SAT 96
[2022-01-11] MEDS: Tamsulosin HCl 0.4 MG Capsule PO (23:07)
[2022-01-12 03:57] VITALS: BP 122/73; PULSE 61; RESP 16; TEMP 36.8; O2SAT 96
[2022-01-12] MEDS: metroNIDAZOLE 500 MG/100 ML BAG 100 MG IV ×2 (05:02→14:13)
[2022-01-12 08:51] VITALS: BP 129/75; PULSE 57; RESP 16; TEMP 36.8; O2SAT 100
--- NOTE | 2022-01-12 09:03 | PCM.PN.SRG ---
Subjective Subjective Patient seen and examined in AM rounds. He reports improvement in his abdominal pain. He denies any nausea and expresses an appetite. He states that he has just been up to the bathroom for his first bowel movement of this admission. He denies noting any diarrhea or blood. Objective Data Objective Data Vital Signs: Vital Signs Temp Pulse Resp BP Pulse Ox O2 Del Method 98.3 F 57 L 16 129/75 H 100 Room Air 01/12/22 08:51 01/12/22 08:51 01/12/22 08:51 01/12/22 08:51 01/12/22 08:51 01/12/22 08:51 Oxygen Delivery Method Room Air Weight: 122 lb 2.177 oz Body Mass Index (BMI) 18.6 Intake & Output: Intake and Output for Last 24 Hours 01/10/22 01/11/22 01/12/22 23:59 23:59 23:59 Intake Total 2250 / 2250 250 / 250 Balance 2250 / 2250 250 / 250 Medical Nutrition Assessment Dietitian: Malnutrition Criteria Met Start: 01/11/22 16:52 Freq: Status: Active Protocol: Document 01/11/22 16:53 SLA (Rec: 01/11/22 16:54 SLA [id number]) Nutrition Malnutrition Evidence of Malnutrition Exists Yes Malnutrition (severe): Acute Illness/Injury Evidenced By Suboptimal Energy Intake ( Moderate),Weight Loss (Severe) ,Physical Changes (Moderate) Clinical Problem Chronic Disease or Condition Related Malnutrition Etiology acute severe malnutrition d/t chronic GI issues w/ pt having inadequate energy intake to meet est nutritional needs Signs/Symptoms as evidenced by variable po intake depending on if acute diverticulitis or if diverticulosis - has had 18.1% wt loss x 2 mo and appears to have fat/muscle loss to temporal/buccal/orbital and upper body (clavicle, triceps) . Status Active Problem Recommendation Dietitian Recommendations/Changes As medically able, rec diet as tolerated to Transitional with goal of Regular No Added Salt/low fiber Rec ensure clear if clear liquids with transition to ensure enlive w/ meals, per pt preference vs medpass, when po diet resumes. Lab / Micro Data Result Diagrams: 01/11/22 05:51 01/11/22 05:51 Radiography Diagnostic Testing: Radiology Impression Abdomen/Pelvis CT 01/11/22 11:45 IMPRESSION: Findings include with acute sigmoid diverticulitis. 2 cm x 2.1 cm extraluminal collection of air along the anterior third segment of the sigmoid colon. No evidence of fluid collection is seen. Electronically Signed: Ronald Montilla MD at 12:12 EDT , Physical Exam Const oriented x3 and no apparent distress Resp normal respiratory effort GI GI Narrative: Nondistended, soft, minimally tender to palpation in the right lower quadrant?otherwise unremarkable. Assessment & Plan Assessment/Plan (1) Diverticulitis of large intestine with complication: PLAN: Patient hospital day 2 for acute diverticulitis with localized pericolonic air. CT of the abdomen and pelvis with rectal contrast did confirm a localized perforation of the sigmoid colon without fluid to represent an abscess. Today he reports near complete resolution of his symptoms and expresses an appetite. We are awaiting his a.m. labs, but given the significant improvement in his exam as well we will plan to start a diet. Continue IV antibiotics today. Neuro: As needed acetaminophen and Dilaudid Pulm/CV: Incentive spirometer, continue home metoprolol FEN/GI: Trend daily labs, advance to clear liquid diet with Ensure clears. : Continue home Flomax given prostate history Heme/ID: Trend CBC, cefepime and Flagyl empirically Endo: No current issues Proph: Encourage ambulation and use of incentive spirometer, will hold on chemoprophylaxis at present Dispo: Admit to inpatient stay Charges/Coding Visit Charges Inpatient E&M: 55125 Subs Hosp L2
[2022-01-12 09:40] VITALS: PULSE 57
[2022-01-12 09:40] LABS: Absolute Lymphocyte Count 1.59 X10^3/uL (0.83-4.51); Absolute Neutrophil Count 2.6 X10^3/uL (2.0-7.7); Basophil# 0.06 X10^3/uL; Basophil% 1.3 % (0-1); Eosinophil# 0.18 X10^3/uL; Eosinophils% 3.8 % (0-5); Hematocrit 40.7 % (40-54); Hemoglobin 12.8 g/dL (13.0-16.5); Lymphocyte # 1.59 X10^3/ul (0.83-4.51); Mean Corp Hgb Conc 31.4 g/dL (32-36); Mean Corpuscular Hgb 29.8 pg (27.0-32.0); Mean Corpuscular Volume 94.9 fL (80-94); Mean Platelet Vol. 9.5 fl (6.2-12.0); Monocyte# 0.22 X10^3/uL; Monocyte% 4.7 % (0-10); NRBC Flagged by Analyzer 0 % (0-5); Neutrophil # 2.62 X10^3/uL (2.7-7.7); Platelet Count 310 K/mm3 (150-450); RBC Distribution Width CV 13.6 % (11.6-14.6); RBC Distribution Width SD 47.7 fl (35.1-43.9); Red Blood Count 4.29 M/mm3 (4.6-6.2); White Blood Count 4.7 K/mm3 (4.4-11.0)
[2022-01-12] MEDS: Acetaminophen 325 MG Tablet 650 MG PO ×2 (09:40→21:41)
[2022-01-12] MEDS: Escitalopram Oxalate 10 MG Tablet 5 MG PO (09:42)
[2022-01-12 10:11] LABS: Anion Gap 2 (5-15); BUN 18 mg/dL (7-18); BUN/Creat Ratio 22.5 RATIO (10-20); Calcium,Total 8.4 mg/dL (8.5-10.1); Chloride 108 mmol/L (98-107); EST Glomerular Filtration Rate 104 mL/min (>60); Est Glom Filt Rate - Afr Amer 126 mL/min (>60); Estimated Creatinine Clearance 74.06 ml/min; Glucose 87 mg/dL (74-106); Magnesium 2.3 mg/dL (1.6-2.6); Phosphorus 1.7 mg/dL (2.5-4.9); Potassium 4.7 mmol/L (3.5-5.1); Sodium Level 139 mmol/L (136-145)
--- NOTE | 2022-01-12 10:20 | PN.HOSP_ITS ---
Subjective Subjective Patient seen and examined. He had no active complaints and abdominal pain was much better. Review of systems was otherwise negative. He was on a clear liquid diet and had tolerated it well. Review of systems is otherwise negative. Objective Data Objective Data Vital Signs: Vital Signs Temp Pulse Resp BP Pulse Ox O2 Del Method 98.3 F 57 L 16 129/75 H 100 Room Air 01/12/22 08:51 01/12/22 09:40 01/12/22 08:51 01/12/22 08:51 01/12/22 08:51 01/12/22 08:51 Oxygen Delivery Method Room Air Weight: 122 lb 2.177 oz Body Mass Index (BMI) 18.6 Intake & Output: Intake and Output for Last 24 Hours 01/10/22 01/11/22 01/12/22 23:59 23:59 23:59 Intake Total 2250 / 2250 250 / 250 Balance 2250 / 2250 250 / 250 Medical Nutrition Assessment Dietitian: Malnutrition Criteria Met Start: 01/11/22 16:52 Freq: Status: Active Protocol: Document 01/11/22 16:53 SLA (Rec: 01/11/22 16:54 [facility] [id number]) Nutrition Malnutrition Evidence of Malnutrition Exists Yes Malnutrition (severe): Acute Illness/Injury Evidenced By Suboptimal Energy Intake ( Moderate),Weight Loss (Severe) ,Physical Changes (Moderate) Clinical Problem Chronic Disease or Condition Related Malnutrition Etiology acute severe malnutrition d/t chronic GI issues w/ pt having inadequate energy intake to meet est nutritional needs Signs/Symptoms as evidenced by variable po intake depending on if acute diverticulitis or if diverticulosis - has had 18.1% wt loss x 2 mo and appears to have fat/muscle loss to temporal/buccal/orbital and upper body (clavicle, triceps) . Status Active Problem Recommendation Dietitian Recommendations/Changes As medically able, rec diet as tolerated to Transitional with goal of Regular No Added Salt/low fiber Rec ensure clear if clear liquids with transition to ensure enlive w/ meals, per pt preference vs medpass, when po diet resumes. Lab / Micro Data Result Diagrams: 01/12/22 08:55 01/12/22 08:55 Labs: Laboratory Results - last 24 hr 01/12/22 08:55: WBC 4.7, RBC 4.29 L, Hgb 12.8 L, Hct 40.7, MCV 94.9 H, MCH 29.8, MCHC 31.4 L, RDW Std Deviation 47.7 H, RDW Coeff of Loc 13.6, Plt Count 310, MPV 9.5, Immature Gran % (Auto) 0.200, Neut % (Auto) 56.0, Lymph % (Auto) 34.0, [place] % (Auto) 4.7, Eos % (Auto) 3.8, Baso % (Auto) 1.3 H, Absolute Neuts (auto) 2.6, Absolute Lymphs (auto) 1.59, Nucleated RBC % 0 01/12/22 08:55: Sodium 139, Potassium 4.7, Chloride 108 H, Carbon Dioxide 29.0, Anion Gap 2 L, BUN 18, Creatinine 0.80, Estim Creat Clear Calc 74.06, Est GFR (MDRD) Af Amer 126, Est GFR (MDRD) Non-Af 104, BUN/Creatinine Ratio 22.5 H, Glucose 87, Calcium 8.4 L, Phosphorus 1.7 L, Magnesium 2.3 Radiography Diagnostic Testing: Radiology Impression Abdomen/Pelvis CT 01/11/22 11:45 IMPRESSION: Findings include with acute sigmoid diverticulitis. 2 cm x 2.1 cm extraluminal collection of air along the anterior third segment of the sigmoid colon. No evidence of fluid collection is seen. Electronically Signed: Ronald Montilla MD at 12:12 EDT Reading Location ID and State: [facility] / [place] , Service support , Physical Exam Const alert, oriented x3 and no apparent distress General Appearance: cooperative HEENT normocephalic, head/scalp atraumatic, hearing grossly normal bilaterally and moist oral mucous membranes Head and Scalp: normocephalic Mouth: oral and palatal mucosa normal Eyes PERRL, EOMs intact bilaterally and conjunctivae normal Neck no lymphadenopathy, supple and no JVD Resp normal respiratory effort, no retractions, no use of accessory muscles and clear to auscultation bilaterally Cardio regular rate, regular rhythm, S1 normal heart sound, S2 normal heart sound and no murmurs GI normal to inspection, nondistended, normoactive bowel sounds GI Narrative: abdominal tenderness has resolved Extremity normal to inspection, full ROM and no clubbing, cyanosis or edema General Extremity: edema Neuro oriented x3, CN's II-XII intact bilaterally, moves all extremities and no focal motor deficits Sensorium / Orientation: awake and alert Motor Exam: strength 5/5 throughout Psych affect normal Assessment & Plan Assessment/Plan (1) COPD (chronic obstructive pulmonary disease): (2) HTN (hypertension): (3) Diverticulitis: (4) Colitis: (5) Bowel perforation: (6) Abscess: PLAN: Plan #Acute diverticulitis with possible abscess formation * abdominal pain has resolved * on clear diet, which he is tolerating * on IV cefepime and metronidazole * #COPD: not in exacerbation. On breathing treatment with bronchodilators #Hypertension: continue current BP meds- metoprolol #Nicotine dependence: counseled to quit. Refuses nicotine patch #BPH: on flomax DVT prophylaxis: SCDs as per primary service Charges/Coding Visit Charges Inpatient E&M: 14310 Subs Hosp L2
[2022-01-12] MEDS: 0.9% Normal Saline 1,000 ML 35 ML IV (12:09)
[2022-01-12] MEDS: Ensure Clear 120 ML Liquid PO (12:36)
[2022-01-12] MEDS: HYDROmorphone 1 MG/ML Syringe IV (12:44)
[2022-01-12] MEDS: 0.9% Saline Lock 10 ML Syringe IV (12:45)
--- NOTE | 2022-01-12 13:15 | CASEMGMT ---
RN CM Face to Face with patient for initial transition planning/care coordination assessment. RN CM introduced self and role at [facility]. Patient lying in bed, alert and oriented. Patient willing to participate in assessment and is able to answer all questions appropriately. Care providers, pharmacy, and demographics verified. Patient wishes to discharge home, denies need for home health at this time. Patient states he has no further needs or concerns at this time. CM to follow for discharge planning needs that may arise. PCP: Juan Antonio Specialists: Eliecer surgeon Samantha Pharmacy: [facility] Insurance: [facility] Prescription Benefit: yes Living Will/HPOA: none LNOK: mother, brother, GF Living Arrangements: Patient states he lives alone in a mobile home with 3-4 steps to enter. Patient states he is independent at home. Transportation: self, mother, girlfriend DME/HHC: Patient denies DME or previous HHC Disposition Plan: Patient to discharge home with family support and follow-up plans in place. Opal MELCHORN, RN, CM
[2022-01-12 16:09] VITALS: BP 126/70; PULSE 59; RESP 18; TEMP 37.2; O2SAT 100
[2022-01-12 17:00] VITALS: RESP 18
[2022-01-12] MEDS: Tamsulosin HCl 0.4 MG Capsule PO (21:38)
[2022-01-12] MEDS: Amox/Clavulanate 875 MG Tablet PO (21:39)
[2022-01-12 21:40] VITALS: BP 124/80; PULSE 62; RESP 18; TEMP 37; O2SAT 100
[2022-01-13 05:00] VITALS: BP 122/83; PULSE 55; RESP 16; TEMP 36.7; O2SAT 96
[2022-01-13] MEDS: Acetaminophen 325 MG Tablet 650 MG PO ×2 (05:23→14:46)
[2022-01-13 07:11] LABS: Absolute Lymphocyte Count 1.67 X10^3/uL (0.83-4.51); Absolute Neutrophil Count 4.2 X10^3/uL (2.0-7.7); Basophil# 0.07 X10^3/uL; Eosinophil# 0.34 X10^3/uL; Eosinophils% 5.1 % (0-5); Hematocrit 37.2 % (40-54); Hemoglobin 12.2 g/dL (13.0-16.5); Lymphocyte # 1.67 X10^3/ul (0.83-4.51); Mean Corp Hgb Conc 32.8 g/dL (32-36); Mean Corpuscular Hgb 30.9 pg (27.0-32.0); Mean Corpuscular Volume 94.2 fL (80-94); Mean Platelet Vol. 9.8 fl (6.2-12.0); Monocyte# 0.42 X10^3/uL; Monocyte% 6.3 % (0-10); NRBC Flagged by Analyzer 0 % (0-5); Neutrophil # 4.16 X10^3/uL (2.7-7.7); Neutrophil % 62.5 % (47-70); Platelet Count 287 K/mm3 (150-450); RBC Distribution Width CV 13.6 % (11.6-14.6); RBC Distribution Width SD 46.9 fl (35.1-43.9); Red Blood Count 3.95 M/mm3 (4.6-6.2); White Blood Count 6.7 K/mm3 (4.4-11.0)
[2022-01-13 07:54] LABS: ALB/GLOB Ratio 0.8 RATIO (0.9-2.4); AST(SGOT) 16 U/L (15-37); Alanine Aminotransfer ALT/SGPT 17 U/L (16-61); Albumin, Serum 2.6 g/dL (3.2-5.0); Alkaline Phosphatase 53 U/L (45-117); Anion Gap 3 (5-15); BUN 13 mg/dL (7-18); BUN/Creat Ratio 17.6 RATIO (10-20); Calcium,Total 8.6 mg/dL (8.5-10.1); Chloride 110 mmol/L (98-107); Creatinine, Serum 0.74 mg/dL (0.70-1.30); EST Glomerular Filtration Rate 113 mL/min (>60); Est Glom Filt Rate - Afr Amer 137 mL/min (>60); Estimated Creatinine Clearance 80.06 ml/min; Globulin 3.2 g/dL (2.2-4.2); Glucose 93 mg/dL (74-106); Magnesium 2.1 mg/dL (1.6-2.6); Phosphorus 1.9 mg/dL (2.5-4.9); Prealbumin 20.4 mg/dL (20.0-40.0); Protein, Total 5.8 g/dL (6.4-8.2); Sodium Level 141 mmol/L (136-145)
[2022-01-13 07:58] VITALS: BP 128/68; PULSE 60; RESP 18; TEMP 36.8; O2SAT 97
--- NOTE | 2022-01-13 10:06 | DS.PCM_ITS ---
Providers Date of Admission: 01/11/22 Date of Discharge: 01/13/22 Primary Care Physician: Dr. Yuri Romano MD Consultations 01/11/22 10:53 Consult: Hospitalist Routine Consulting Provider: Ebonie Sandoval Reason for Consult: Medical management EMERGENT Consult: No MD Notified: Yes Date Notified: 01/11/22 Time Notified: 10:24 Method of Notification: ED Physician Initiated Reason For Visit: COMPLICATED DIVERTICULITIS, CONTAINED PERFORATION Diagnosis Discharge Diagnosis (1) COPD (chronic obstructive pulmonary disease): Status: Chronic Code(s): J44.9 - Chronic obstructive pulmonary disease, unspecified (2) HTN (hypertension): Status: Chronic Code(s): I10 - Essential (primary) hypertension (3) Diverticulitis: Status: Acute Code(s): K57.92 - Diverticulitis of intestine, part unspecified, without perforation or abscess without bleeding (4) Colitis: Status: Acute Code(s): K52.9 - Noninfective gastroenteritis and colitis, unspecified (5) Bowel perforation: Status: Acute Code(s): K63.1 - Perforation of intestine (nontraumatic) (6) Abscess: Status: Acute Code(s): L02.91 - Cutaneous abscess, unspecified Medications at Discharge Home Medications tamsulosin 0.4 mg capsule cap PO Check with primary doctor 03/31/21 amoxicillin 875 mg-potassium clavulanate 125 mg tablet 1 tab PO BID 14 days #28 tabs 01/13/22 tramadol 50 mg tablet 50 mg PO Q6H PRN PRN Pain Score 1-10 #10 tabs 01/13/22 Hospital Course Summary of Care Provided Minutes Spent on Discharge: 25 Hospital Course: Patient is a 61 y/o M who presented on 01/11 with worsening abdominal pain. Patent has had recurrent diverticulitis. He completed a course of antibiotics approximately 2 weeks ago. He noted over the weekend he had worsening abdominal pain, nausea and vomiting. CT scan of the abdomen/pelvis demonstrated: IMPRESSION: ? Long segment of abnormally thickened and edematous sigmoid wall, consistent with a severe colitis; air bubbles track through the thickened posterior wall of this segment into a 3 cm pocket of ring-enhancing fluid and air bubbles, indicating perforation with pericolonic abscess. ? Bilateral renal calculi.? No obstructing ureteral stone or hydronephrosis. ? Prior appendectomy. ? No findings of small bowel obstruction. ? Nonstandard communication protocol initiated. A repeat CT scan was obtained with rectal contrast demonstrating findings of acute sigmoid diverticulitis with a 2 cm x 2.1 cm air collection along the anterior third of the sigmoid colon. No abscess collection seen. Patient was admitted. Hospitalist was consulted to assist with medical management. Patient h ad an uneventful hospitalization. He was placed on clear liquids, IV Cefepime and Flagyl, and IV fluids. Patient has noted multiple bowel movements. His abdominal pain has improved. We have discussed discharge diet of soft, low residue foods and protein shakes. Upon discharge, patient's abdominal pain has resolved. He denies nausea, vomiting, fever. He has tolerated his current diet. Patient will be discharged to home in stable condition. He is to follow-up in [address] Gonzáles. Physical Exam Const alert, oriented x3 and no apparent distress GI normal to inspection, nondistended, normoactive bowel sounds, soft to palpation and non-tender Medical Records Data Medical Nutrition Assessment Dietitian: Malnutrition Criteria Met Start: 01/11/22 16:52 Freq: Status: Active Protocol: Document 01/11/22 16:53 SLA (Rec: 01/11/22 16:54 [facility] [id number]) Nutrition Malnutrition Evidence of Malnutrition Exists Yes Malnutrition (severe): Acute Illness/Injury Evidenced By Suboptimal Energy Intake ( Moderate),Weight Loss (Severe) ,Physical Changes (Moderate) Clinical Problem Chronic Disease or Condition Related Malnutrition Etiology acute severe malnutrition d/t chronic GI issues w/ pt having inadequate energy intake to meet est nutritional needs Signs/Symptoms as evidenced by variable po intake depending on if acute diverticulitis or if diverticulosis - has had 18.1% wt loss x 2 mo and appears to have fat/muscle loss to temporal/buccal/orbital and upper body (clavicle, triceps) . Status Active Problem Recommendation Dietitian Recommendations/Changes As medically able, rec diet as tolerated to Transitional with goal of Regular No Added Salt/low fiber Rec ensure clear if clear liquids with transition to ensure enlive w/ meals, per pt preference vs medpass, when po diet resumes. Weight / BMI Weight Weight: 122 lb 2.177 oz Body Mass Index (BMI) 18.6 ABG / Lab / Microbiology Data Result Diagrams: 01/13/22 06:15 01/13/22 06:15 Laboratory: Laboratory Results - last 24 hr 01/12/22 08:55: Sodium 139, Potassium 4.7, Chloride 108 H, Carbon Dioxide 29.0, Anion Gap 2 L, BUN 18, Creatinine 0.80, Estim Creat Clear Calc 74.06, Est GFR (MDRD) Af Amer 126, Est GFR (MDRD) Non-Af 104, BUN/Creatinine Ratio 22.5 H, Glucose 87, Calcium 8.4 L, Phosphorus 1.7 L, Magnesium 2.3 01/13/22 06:15: Sodium 141, Potassium 4.0, Chloride 110 H, Carbon Dioxide 28.0, Anion Gap 3 L, BUN 13, Creatinine 0.74, Estim Creat Clear Calc 80.06, Est GFR (MDRD) Af Amer 137, Est GFR (MDRD) Non-Af 113, BUN/Creatinine Ratio 17.6, Glucos e 93, Calcium 8.6, Phosphorus 1.9 L, Magnesium 2.1, Total Bilirubin 0.20, AST 16, ALT 17, Alkaline Phosphatase 53, Total Protein 5.8 L, Albumin 2.6 L, Globulin 3.2, Albumin/Globulin Ratio 0.8 L, Prealbumin 20.4 01/13/22 06:15: WBC 6.7, RBC 3.95 L, Hgb 12.2 L, Hct 37.2 L, MCV 94.2 H, MCH 30.9, MCHC 32.8, RDW Std Deviation 46.9 H, RDW Coeff of Loc 13.6, Plt Count 287, MPV 9.8, Immature Gran % (Auto) 0.100, Neut % (Auto) 62.5, Lymph % (Auto) 25.0, [place] % (Auto) 6.3, Eos % (Auto) 5.1 H, Baso % (Auto) 1.0, Absolute Neuts (auto) 4.2, Absolute Lymphs (auto) 1.67, Nucleated RBC % 0 Meaningful Use Info Meaningful Use Diagnoses (Choose all that apply): None applicable Discharge Plan Admission Admit Date/Time: 01/11/22 09:48 Primary Reason for Your Visit: Acute perforated diverticulitis Attending Provider: Cezar Gonzáles Primary Care Provider: Yuri Romano Chi Consulting Providers: Ebonie Sandoval Instructions Additional Instructions / Restrictions: Recommend a soft, low residue, and liquid diet. Avoid any foods that are difficult to digest i.e. corn, nuts, anything with seeds, popcorn. Stick with mashed potatoes, applesauce, protein shakes, mac and cheese, etc. Avoid tough meats. Your colonoscopy that was scheduled for 01/[address] Gonzáles is canceled. This will be an office appointment instead. Discharge Orders/Prescriptions Prescriptions: New amoxicillin-pot clavulanate 875-125 mg Tablet 1 tab PO BID 14 Days Qty: 28 0RF tramadol 50 mg Tablet 50 mg PO Q6H PRN PRN (Reason: Pain Score 1-10) Qty: 10 0RF Continued tamsulosin 0.4 mg capsule PO Referrals / Follow Up: Cezar Gonzáles MD [Med Staff - Active Staff] - (Follow-up in 2 weeks on 01/27/22 at 08:[address] Gonzáles ) Yuri Romano Chi, MD [Primary Care Provider] - Angela Pritchard PA-C [Med Staff - Adv Practice Prof] - Disposition Disposition (needs filled in before D/C Order can be placed): Home, Self Care Charges/Coding Visit Charges Inpatient E&M: 26205 Disch Hosp
[2022-01-13] MEDS: traMADol 50 MG Tablet PO (10:11)
[2022-01-13] MEDS: Escitalopram Oxalate 10 MG Tablet 5 MG PO (10:11)
[2022-01-13] MEDS: Amox/Clavulanate 875 MG Tablet PO (10:12)
--- NOTE | 2022-01-13 11:01 | PHA.DC.MC ---
Pharmacy Service has performed discharge medication reconciliation and counseling for this patient. 1. AUGMENTIN 875MG PO BID X 14 DAYS 2. TRAMADOL 50MG PO Q6H PRN PAIN The patient's discharge medication list was reviewed for discrepancies and discrepancies were resolved. Home Medications Home Medications tamsulosin 0.4 mg capsule cap PO Check with primary doctor 03/31/21 amoxicillin 875 mg-potassium clavulanate 125 mg tablet 1 tab PO BID 14 days #28 tabs 01/13/22 tramadol 50 mg tablet 50 mg PO Q6H PRN PRN Pain Score 1-10 #10 tabs 01/13/22 The patient was counseled on the following discharge medications and changes in medications for homegoing were reviewed. The Reason for Use, instructions for use, and potential side effects were reviewed for all new medications. The patient's questions regarding all of their medications were answered. The patient was able to verbally demonstrate an understanding of their discharge medications.
[2022-01-13] MEDS: 0.9% Saline Lock 10 ML Syringe IV (11:06)
--- NOTE | 2022-01-13 12:08 | PN.HOSP_ITS ---
Subjective Subjective Patient seen and examined. He had no active complaints today and had an uneventful night. Review of systems is otherwise negative. He is due for dc per surgery today. Objective Data Objective Data Vital Signs: Vital Signs Temp Pulse Resp BP Pulse Ox O2 Del Method 98.3 F 60 18 128/68 H 97 Room Air 01/13/22 07:58 01/13/22 07:58 01/13/22 07:58 01/13/22 07:58 01/13/22 07:58 01/13/22 07:58 Oxygen Delivery Method Room Air Weight: 122 lb 2.177 oz Body Mass Index (BMI) 18.6 Intake & Output: Intake and Output for Last 24 Hours 01/11/22 01/12/22 01/13/22 23:59 23:59 23:59 Intake Total 2250 / 2250 2560.00 / 2560.00 250 / 250 Balance 2250 / 2250 2560.00 / 2560.00 250 / 250 Medical Nutrition Assessment Dietitian: Malnutrition Criteria Met Start: 01/11/22 16:52 Freq: Status: Active Protocol: Document 01/11/22 16:53 SLA (Rec: 01/11/22 16:54 SLA [id number]) Nutrition Malnutrition Evidence of Malnutrition Exists Yes Malnutrition (severe): Acute Illness/Injury Evidenced By Suboptimal Energy Intake ( Moderate),Weight Loss (Severe) ,Physical Changes (Moderate) Clinical Problem Chronic Disease or Condition Related Malnutrition Etiology acute severe malnutrition d/t chronic GI issues w/ pt having inadequate energy intake to meet est nutritional needs Signs/Symptoms as evidenced by variable po intake depending on if acute diverticulitis or if diverticulosis - has had 18.1% wt loss x 2 mo and appears to have fat/muscle loss to temporal/buccal/orbital and upper body (clavicle, triceps) . Status Active Problem Recommendation Dietitian Recommendations/Changes As medically able, rec diet as tolerated to Transitional with goal of Regular No Added Salt/low fiber Rec ensure clear if clear liquids with transition to ensure enlive w/ meals, per pt preference vs medpass, when po diet resumes. Lab / Micro Data Result Diagrams: 01/13/22 06:15 01/13/22 06:15 Labs: Laboratory Results - last 24 hr 01/13/22 06:15: Sodium 141, Potassium 4.0, Chloride 110 H, Carbon Dioxide 28.0, Anion Gap 3 L, BUN 13, Creatinine 0.74, Estim Creat Clear Calc 80.06, Est GFR (MDRD) Af Amer 137, Est GFR (MDRD) Non-Af 113, BUN/Creatinine Ratio 17.6, Glucose 93, Calcium 8.6, Phosphorus 1.9 L, Magnesium 2.1, Total Bilirubin 0.20, AST 16, ALT 17, Alkaline Phosphatase 53, Total Protein 5.8 L, Albumin 2.6 L, Globulin 3.2, Albumin/Globulin Ratio 0.8 L, Prealbumin 20.4 01/13/22 06:15: WBC 6.7, RBC 3.95 L, Hgb 12.2 L, Hct 37.2 L, MCV 94.2 H, MCH 30.9, MCHC 32.8, RDW Std Deviation 46.9 H, RDW Coeff of Loc 13.6, Plt Count 287, MPV 9.8, Immature Gran % (Auto) 0.100, Neut % (Auto) 62.5, Lymph % (Auto) 25.0, [place] % (Auto) 6.3, Eos % (Auto) 5.1 H, Baso % (Auto) 1.0, Absolute Neuts (auto) 4.2, Absolute Lymphs (auto) 1.67, Nucleated RBC % 0 Physical Exam Const alert, oriented x3 and no apparent distress General Appearance: cooperative HEENT normocephalic, head/scalp atraumatic, hearing grossly normal bilaterally and moist oral mucous membranes Head and Scalp: normocephalic Mouth: oral and palatal mucosa normal Eyes PERRL, EOMs intact bilaterally and conjunctivae normal Neck no lymphadenopathy, supple and no JVD Resp normal respiratory effort, no retractions, no use of accessory muscles and clear to auscultation bilaterally Cardio regular rate, regular rhythm, S1 normal heart sound, S2 normal heart sound and no murmurs GI normal to inspection, nondistended, normoactive bowel sounds GI Narrative: abdominal tenderness has resolved Palpation: tender Extremity normal to inspection, full ROM and no clubbing, cyanosis or edema General Extremity: edema Neuro oriented x3, CN's II-XII intact bilaterally, moves all extremities and no focal motor deficits Sensorium / Orientation: awake and alert Motor Exam: strength 5/5 throughout Psych affect normal Assessment & Plan Assessment/Plan (1) COPD (chronic obstructive pulmonary disease): (2) HTN (hypertension): (3) Diverticulitis: (4) Colitis: (5) Bowel perforation: (6) Abscess: PLAN: Plan #Acute diverticulitis with possible abscess formation * abdominal pain has resolved * diet advanced as per general surgery * on IV cefepime and metronidazole * #COPD: not in exacerbation. On breathing treatment with bronchodilators #Hypertension: continue current BP meds- metoprolol #Nicotine dependence: counseled to quit. Refuses nicotine patch #BPH: on flomax DVT prophylaxis: SCDs as per primary service Disposition: stable for DC from hospitalist standoint Charges/Coding Visit Charges Inpatient E&M: 24778 Subs Hosp L2
[2022-01-13 14:45] VITALS: BP 119/70; PULSE 59; RESP 18; TEMP 37.1; O2SAT 98
== END 2022-01-13 17:33 | disposition home or self-care (01) | DRG 244 ==
LOC: ED 08:32 → MS3 09:50
PROVIDERS: Physician Assistant; Admitting Provider Surgery; Emergency Provider Emergency Medicine; PCP Family Medicine Geriatric Medicine; Visit Provider Surgery
DX: K57.20 Diverticulitis of large intestine with perforation and abscess without bleeding (principal); E43 Unspecified severe protein-calorie malnutrition; J44.9 Chronic obstructive pulmonary disease, unspecified; F17.210 Nicotine dependence, cigarettes, uncomplicated; I10 Essential (primary) hypertension; G43.909 Migraine, unspecified, not intractable, without status migrainosus; K52.9 Noninfective gastroenteritis and colitis, unspecified; Z79.899 Other long term (current) drug therapy; N40.0 Benign prostatic hyperplasia without lower urinary tract symptoms; Z68.1 Body mass index [BMI] 19.9 or less, adult; F32.A Depression, unspecified
CPT/HCPCS: 36415; 74176; 74177; 80048; 80053; 80076; 83605; 83690; 83735; 84100; 84134; 85025; 97802; 99251; 99282; 99406; J7030; J7050; Q9967; A4216; G0463; J2405

== ENCOUNTER 2022-02-05 10:01 | Emergency (ER) | payer MEDICAID, SELFPAY ==
[2022-02-05 10:02] VITALS: BP 113/77; PULSE 65; RESP 18; TEMP 36.1; O2SAT 99; BMI 18.4
--- NOTE | 2022-02-05 10:23 | CT_ITS ---
STUDY: CT ABDOMEN AND PELVIS WITH CONTRAST REASON FOR EXAM: Male, 61 years old. llq pain, hx diverticulitis RADIATION DOSAGE (If Supplied By Facility): CTDIvol = ( 11.95 ) mGy, DLP = ( 337.56 ) mGycm TECHNIQUE: Transaxial images were obtained from the dome of the diaphragm to the symphysis pubis without oral contrast. IV 100mL Isovue-300 was administered. Sagittal and coronal images were reconstructed. Individualized dose optimization techniques were used for this CT. COMPARISON: Comparison is made with prior study dated 01/11/2022. FINDINGS: Calcified granuloma in the left lower lung. The visualized portions of the heart are within normal limits. Normal liver. Normal gallbladder and extrahepatic biliary system. Normal spleen. Normal pancreas. Normal bilateral adrenal glands. Normal right kidney. 1 cm cyst in the posterior aspect of the left kidney. Normal visualized stomach. Normal small intestine. There is diverticulosis, with thickening of the colon wall, and pericolonic inflammation changes consistent with acute diverticulitis. The patient is status post appendectomy. There is scattered atherosclerotic calcification of the abdominal aorta, without a demonstrated aneurysm. Normal inferior vena cava. Normal retroperitoneum. Normal urinary bladder. Metallic radiation seeds are seen within the prostate. Normal abdominal wall. There are mild degenerative changes of the visualized lumbar spine. CT/Abdomen/Pelvis W IV Cont ONLY IMPRESSION: Thickening and inflammatory changes of the sigmoid colon in keeping with sigmoid diverticulitis. Electronically Signed: Ronald Montilla MD at 12:03 EDT ,
--- NOTE | 2022-02-05 10:24 | ED.VIS.GI ---
HPI HPI - GI History of Present Illness Chief Complaint: Abd Pain Informant: patient and spouse/S.O. Abdominal Pain/Flank Pain Onset: Today Context: Gradual Onset Timing: Continuous Quality: Aching Location: LLQ (And suprapubic) Current Severity: Severe Maximum Severity: Severe Worsened by: Car ride Relieved by: Nothing Nausea/Vomiting/Emesis GI Symptom: Negative for Nausea or Vomiting Diarrhea/Melena/Hematochezia GI Symptom: Negative for Diarrhea, Melena or Hematochezia Associated Symptoms Associated Symptoms: Negative for Dysuria, Frequency, Hematuria or Urgency Narrative Narrative: Patient states he has had waxing and waning diverticulitis since October, he feels like it is flared up again this morning, and his pain is severe. He had a small perforation that was treated nonoperatively with antibiotics relatively recently, he is not sure how long ago it was. He states he was supposed to follow-up with Dr. Gonzáles but he admits that he did not. He denies any nausea, vomiting, diarrhea, bright red blood per rectum, melena, or fevers this morning or any other symptoms. PFSH PFS Medical History Acid reflux Colitis COPD (chronic obstructive pulmonary disease) Depression Diverticulitis of large intestine with complication Emphysema (subcutaneous) (surgical) resulting from a procedure Hemorrhoids HTN (hypertension) Migraines Home Medications tamsulosin 0.4 mg capsule 0.4 cap PO DAILY Check with primary doctor 03/31/21 [History Last Taken 01/10/22] ciprofloxacin HCl 500 mg tablet 500 mg PO BID #28 TABLETS 02/05/22 [Rx Last Taken Unknown] dutasteride 0.5 mg capsule 0.5 mg PO DAILY 02/05/22 [History Last Taken Unknown] hydrocodone-acetaminophen 5-325mg 5mg-325mg 1 tab PO Q4H PRN PRN Pain 2 days #10 TABLETS 02/05/22 [Rx Last Taken Unknown] metronidazole 500 mg tablet 500 mg PO BID #28 tabs 02/05/22 [Rx Last Taken Unknown] Allergy/AdvReac Type Severity Reaction Status Date / Time No Known Allergies Allergy Verified 01/27/22 08:53 Family History Uncle Colon cancer x 3 Father Heart disease Surgical History S/P appendectomy S/P inguinal hernia repair Social History Smoking Status: Current every day smoker tobacco type: cigarettes alcohol intake: never ROS ROS ED Constitutional Constitutional ED: Denies chills or fever(s) Eyes Eyes: Denies change in vision or diplopia ENT ENT ED: Denies rhinorrhea or sore throat Cardiovascular Cardiovascular: Denies chest pain or palpitations Respiratory/Chest Respiratory/Chest: Denies cough or dyspnea Gastrointestinal Gastrointestinal: Reports abdominal pain; Denies diarrhea, nausea or vomiting Genitourinary Genitourinary ED: Denies dysuria or hematuria Musculoskeletal Musculoskeletal: Denies back pain or neck pain Integumentary Denies abscess or rash Neurologic Neurologic: Denies headache(s), paresthesias or weakness Psychiatric Psychiatric: Denies anxiety or suicidal thoughts EXAM Physical Exam Const Vital Signs: 02/05/22 10:02 02/05/22 11:42 Temperature 97.0 F L Temperature Source Temporal Pulse Rate 65 Respiratory Rate 18 Blood Pressure 113/77 112/74 Blood Pressure Mean 89 86 Pulse Ox 99 Oxygen Delivery Method Room Air Positive well nourished and well developed General Appearance ED: well developed and NAD HEENT Reports moist mucous membranes normocephalic and atraumatic Eyes PERRL and EOMs intact bilaterally Neck full ROM and supple Resp normal respiratory effort and clear to auscultation bilaterally Cardio regular rate, regular rhythm and no murmurs GI non-distended GI Narrative: Extremely tender suprapubic and left lower quadrant with some voluntary guarding and. Mildly tender in the right lower quadrant and diffusely, there is some mild rebound tenderness remotely. Nondistended. Auscultation: normoactive bowel sounds Palpation: soft Back/Spine no CVA tenderness General Back: other FROM Extremity normal to inspection General Extremety ED: Negative for edema, pulses abnormal or tenderness General Extremity: Negative for edema or pulses abnormal Neuro oriented x3, CN's II-XII intact bilaterally and no sensory deficits noted Sensorium / Orientation: awake and alert Motor Exam: strength 5/5 throughout Psych mental status grossly normal and thought process normal Mood & Affect: anxious Skin no rashes or lesions noted and no wounds MDM MDM MDM Narrative Medical decision making narrative: CT consistent with diverticulitis, there are no complications seen, he does not have a leukocytosis and his renal function is normal. He was given pain medication, he was in a lot of pain when he was first here, but on reevaluation discussing CT results, he is dressed and wants to be discharged. He states he is tired of waiting. I ordered him Cipro and Flagyl, and he had requested that I discuss with Dr. Gonzáles. I did this, he was okay with him going home and following up, the patient was on Augmentin the last time, so he wants him to get Cipro and Flagyl this time and extended out to 2 weeks which is done as well as a short course of antibiotics. Lab Data Attestation: I reviewed the patient's lab results. Labs: Laboratory Results - last 24 hr 02/05/22 02/05/22 10:36 10:36 WBC 7.3 RBC 3.72 L Hgb 11.3 L Hct 35.0 L MCV 94.1 H MCH 30.4 MCHC 32.3 RDW Std Deviation 49.9 H RDW Coeff of Loc 14.5 Plt Count 380 MPV 9.2 Immature Gran % (Auto) 0.400 Neut % (Auto) 62.8 Lymph % (Auto) 24.9 [place] % (Auto) 3.8 Eos % (Auto) 7.4 H Baso % (Auto) 0.7 Absolute Neuts (auto) 4.6 Absolute Lymphs (auto) 1.82 Nucleated RBC % 0 Reactive Lymphocytes RARE Sodium 139 Potassium 4.6 Chloride 106 Carbon Dioxide 31.0 Anion Gap 2 L BUN 20 H Creatinine 0.78 Estim Creat Clear Calc 75.55 Est GFR (MDRD) Af Amer 130 Est GFR (MDRD) Non-Af 107 BUN/Creatinine Ratio 25.8 H Glucose 94 Calcium 8.9 Radiography Diagnostic Testing: Clinical Impression(s) from Imaging Studies Abdomen/Pelvis CT 02/05/22 10:23 IMPRESSION: Thickening and inflammatory changes of the sigmoid colon in keeping with sigmoid diverticulitis. Electronically Signed: Ronald Montilla MD at 12:03 EDT , Discharge Plan Triage Chief Complaint: Abd Pain ED Provider: Esteban Good Dx/Rx/DC Orders Clinical Impression: Diverticulitis large intestine w/o perforation or abscess w/o bleeding Instructions: Low-Fiber Diet, ED Diverticulitis Prescriptions: New metronidazole 500 mg tablet 500 mg PO BID Qty: 28 0RF hydrocodone-acetaminophen [hydrocodone-acetaminophen] 5-325 mg tablet 1 tab PO Q4H PRN PRN (Reason: Pain) 2 Days Qty: 10 0RF ciprofloxacin HCl [ciprofloxacin HCl] 500 mg tablet 500 mg PO BID Qty: 28 0RF No Action tamsulosin 0.4 mg capsule 0.4 cap PO DAILY dutasteride 0.5 mg capsule 0.5 mg PO DAILY Label Comments: TAKE 1 CAPSULE BY MOUTH ONCE DAILY Primary Care Provider: Yuri Romano Chi Referrals: Cezar Gonzáles MD [Med Staff - Active Staff] - As soon as possible Yuri Romano Chi, MD [Primary Care Provider] - Activity Restrictions/Additional Instructions: Diet as instructed by Dr. Gonzáles. 2 weeks of antibiotics, take them as prescribed until completely gone regardless if you are feeling better or not. Pain medication as needed you may add ibuprofen to it if you need. Follow-up with Dr. Gonzáles when you are able to get the appointment. Disposition Disposition: Home, Self Care
[2022-02-05] MEDS: Ondansetron 4 MG/2 ML Vial IV (10:41)
[2022-02-05] MEDS: 0.9% Normal Saline 1,000 ML 125 ML IV (10:41)
[2022-02-05] MEDS: Morphine 4 MG/ML Syringe IV (10:41)
[2022-02-05 10:57] LABS: Absolute Lymphocyte Count 1.82 X10^3/uL (0.83-4.51); Absolute Neutrophil Count 4.6 X10^3/uL (2.0-7.7); Basophil# 0.05 X10^3/uL; Basophil% 0.7 % (0-1); Eosinophil# 0.54 X10^3/uL; Eosinophils% 7.4 % (0-5); Hemoglobin 11.3 g/dL (13.0-16.5); Lymphocyte # 1.82 X10^3/ul (0.83-4.51); Lymphocyte % 24.9 % (19-41); Mean Corp Hgb Conc 32.3 g/dL (32-36); Mean Corpuscular Hgb 30.4 pg (27.0-32.0); Mean Corpuscular Volume 94.1 fL (80-94); Mean Platelet Vol. 9.2 fl (6.2-12.0); Monocyte# 0.28 X10^3/uL; Monocyte% 3.8 % (0-10); NRBC Flagged by Analyzer 0 % (0-5); Neutrophil % 62.8 % (47-70); POSITIVE MORPHOLOGY YES; Platelet Count 380 K/mm3 (150-450); RBC Distribution Width CV 14.5 % (11.6-14.6); RBC Distribution Width SD 49.9 fl (35.1-43.9); Red Blood Count 3.72 M/mm3 (4.6-6.2); White Blood Count 7.3 K/mm3 (4.4-11.0)
[2022-02-05 10:58] LABS: Differential Indicated SCAN CRITERIA MET
[2022-02-05 11:14] LABS: Anion Gap 2 (5-15); BUN 20 mg/dL (7-18); BUN/Creat Ratio 25.8 RATIO (10-20); Calcium,Total 8.9 mg/dL (8.5-10.1); Chloride 106 mmol/L (98-107); Creatinine, Serum 0.78 mg/dL (0.70-1.30); EST Glomerular Filtration Rate 107 mL/min (>60); Est Glom Filt Rate - Afr Amer 130 mL/min (>60); Estimated Creatinine Clearance 75.55 ml/min; Glucose 94 mg/dL (74-106); Potassium 4.6 mmol/L (3.5-5.1); Sodium Level 139 mmol/L (136-145)
[2022-02-05 11:26] LABS: Reactive Lymphocyte RARE
[2022-02-05] MEDS: HYDROmorphone 1 MG/ML Syringe 2 MG IV (11:39)
[2022-02-05 11:42] VITALS: BP 112/74
[2022-02-05 13:47] VITALS: BP 125/76
[2022-02-05] MEDS: metroNIDAZOLE 500 MG Tablet PO (13:47)
[2022-02-05] MEDS: Ciprofloxacin 500 MG Tablet PO (13:47)
== END 2022-02-05 13:51 | disposition home or self-care (01) ==
PROVIDERS: Emergency Provider Emergency Medicine; PCP Family Medicine Geriatric Medicine; Visit Provider Emergency Medicine
DX: K57.32 Diverticulitis of large intestine without perforation or abscess without bleeding (principal); J44.9 Chronic obstructive pulmonary disease, unspecified; I10 Essential (primary) hypertension; R11.2 Nausea with vomiting, unspecified; Z80.0 Family history of malignant neoplasm of digestive organs; F17.210 Nicotine dependence, cigarettes, uncomplicated
CPT/HCPCS: 74177; 80048; 85025; 96361; 96374; 96375; 99283; J7030; Q9967; A4216; J2405

== ENCOUNTER 2022-02-25 07:51 | Day surgery (SDC) | payer OTHER, MEDICAID, SELFPAY ==
[2022-02-25] VITALS (9 sets, daily range): BP systolic 121–169; BP diastolic 75–101; PULSE 56–88; RESP 16–18; TEMP 36.3–36.8; O2SAT 96–100; BMI 19.4
--- NOTE | 2022-02-25 | COLBX_PTH ---
PATIENT: LUIS HERRMANN LOC: EN U#:[id number] AGE/SX: 61/M ROOM: RE02/25/[address]: Dr. Cezar Gonzáles MD : 1960 BED: DIS: 02/25/2022 SPEC #: [id number] RECD: 02/25/22 11:53 STATUS: DELMY LOPEZ #: [id number] DEMETRIS: 02/25/22 00:[address]: Cezar Gonzáles DEPT: SURGICAL PATHOLOGY RECD BY: Vinay Rockwell ENTERED: 02/25/22 11:53 SP TYPE: COLON BX OTHR DR: Dr. Yuri Romano MD Tissues: COLON BIOPSY Procedures: Surgery Specimen Level IV HEADER OPERATION: Colonoscopy (MAC), biopsy PRE-OP DIAGNOSIS: Diverticulitis large intestine TISSUE SUBMITTED: Hepatic flexure polyp biopsy MICROSCOPIC DIAGNOSIS Hepatic flexure polyp, biopsy: A polypoid fragment of colonic mucosa, no pathologic diagnosis. LEXY:[place] 02/26/2022 MICROSCOPIC DESCRIPTION Slides are reviewed. GROSS DESCRIPTION Received in fixative is one container labeled with the patient's name and designated hepatic flexure polyp biopsy. The specimen consists of one irregular fragment of light kern soft tissue that measures 0.3 x 0.2 x 0.1 cm. The specimen is totally submitted in one cassette. / SJ:rg 02/25/2022 TC:5 CPT: 71670
--- NOTE | 2022-02-25 08:50 | HP.PCM_ITS ---
History and Physical Date of Service:? 02/15/22 MR#: [id number] Acct: [id number] Name:LUIS ORTEGA Rep #: [id number] : 1960 ? ? Provider: Dr. Cezar Gonzáles MD Age/Sex:? 61/M ? ? Location: [facility] Status: Signed Intake Vital Signs ? 01/12/2216:35 02/05/2210:02 Height 5 ft 8 in 5 ft 8 in Weight: ? 121 lb 7.595 oz BMI ? 18.4 BP ? 113/77 Respiration ? 18 Pulse ? 65 Temp ? 97.0 F L Temp Source ? Temporal Pulse Oximetry (%) ? 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 Acid reflux Colitis COPD (chronic obstructive pulmonary disease) Depression Diverticulitis of large intestine with complication Emphysema (subcutaneous) (surgical) resulting from a procedure Hemorrhoids HTN (hypertension) Migraines Surgical History? S/P appendectomy S/P inguinal hernia repair Family History? Uncle Colon cancer ?? ? x 3Father Heart disease Social History? Smoking Status:? Current every day smoker tobacco type: cigarettes alcohol intake:? never HPI HPI HPI: LUIS HASSAN, is a 61 M who presents to the office today for above his di verticulitis.? It is noted that he was seen recently in the ER on 02/05/2022 after a missed interim clinic visit.? He reports that he had more pain at that time, but he was dismissed following the ER visit as he had both normal laboratories and a rather unremarkable CT scan simply consistent with his known diverticulitis without complication.? In some Mr. Hassan reports that he is frustrated.? As such she has started back smoking.? He feels like he gets better once taking antibiotics but as soon as he gets off he will have a recurrence.? He also complains that the antibiotics because a different kind of hurt that is higher than with diverticulitis.? He states that he is down to the last 3 to 4 days of his current regimen with Cipro and Flagyl.? He also reports difficulty with work and that he nearly lost his job and his employer had to find someone else to take his spot.? He states that he always has abdominal pain, but states that he feels like it is tolerable and that it is not too bad currently.? He denies any fevers or chills.? He denies any issues with his hemorrhoids.? He reports some additional frustration that he is not able to care for his mother as he would like despite her recent diagnosis of COVID and recent hospitalization.? He confirms that he was tested for this diagnosis but was found to be negative.? He confirms that overall he has tried to stick to a pres cribed diet with predominantly chicken and fish, but admits to eating some hamburgers.? He also has been avoiding high-fiber foods. Exam Const General: cooperative Orientation: alert, awake and oriented x3 Other: Frustrated GI Other: Nondistended, soft, nontender to deep palpation x4 quadrants Assessment and Plan Assessment and Plan (1) Diverticulitis large intestine w/o perforation or abscess w/o bleeding: ?Status:?Acute ?Comment: Patient presents for follow-up of diverticulitis.? He is currently completing another round of antibiotics with Cipro and Flagyl.? He states that he has 3 to 4 days left of this course of antibiotics.? He is concerned for recurrence of his symptoms.? Unfortunately, he is also restarted smoking.? On exam today, he has no tenderness with palpation.? The results of his recent ER visit are reviewed as well and he had both normal laboratories as well as a relatively unremarkable CT scan of the abdomen pelvis (just showing thickening of his colon in the area of the sigmoid colon).? I have spent a significant amount of time trying to reassure him that a conservative course upfront was minimally invasive segmental colectomy it is worth his while and tried the impress upon him the importance of keeping his clinic follow-ups.? In the end he expresses understanding of this information and states he ultimately wants to minimize his ultimate surgical requirements.? I have asked him to complete his antibiotic course then resume use of probiotics and continue adherence to a low fiber diet.? I have also requested that he reconsider smoking cessation again.? Given that he had reassuring results with his most recent ER visit and has a normal exam today, I am inclined to keep our colonoscopy evaluation for February 25, 2022.? I have reminded him he will require a highway truck driver the day of this exam.? We di d review together his last colonoscopy with Dr. Laurent in 2019.? There he was noted to have a tubular adenoma, a submucosal polyp, and scattered diverticulum. ?Plan: ? Complete prescribed Cipro Flagyl ? Reinitiate probiotic ? Continue low fiber diet ? Consider smoking cessation ? Keep colonoscopy appointment for 02/25/2022.? Patient instructed to call with any questions or concerns should they arise in the interim. I have re-examined the patient. There are no clinical changes since date of exam. Patient states that he completed his prep successfully and the only ou tput he is experiencing is clear like water. He is complaining of some mild achiness all over. He denies any questions ahead of the procedure. Therefore we will proceed with scheduled diagnostic colonoscopy to assess for extent of diverticular disease as discussed above.
--- NOTE | 2022-02-25 10:12 | OP.COLON_ITS ---
Patient Name: Hanna Hassan Procedure Date: 02/25/2022 8:51 AM Date of : 1960 Age: 61 Procedure: Colonoscopy Indications: Preoperative assessment, Diverticulitis Providers: Cezar Gonzáles MD Referring MD: Yuri Romano MD Medicines: See the Anesthesia note for documentation of the administered medications Patient Profile: Refer to note in patient chart for documentation of history and physical. Last Colonoscopy: within the past 3 years. Complications: No immediate complications. Estimated blood loss: Minimal. Procedure: Pre-Anesthesia Assessment: - The heart rate, respiratory rate, oxygen saturations, blood pressure, adequacy of pulmonary ventilation, and response to care were monitored throughout the procedure. After I obtained informed consent, the scope was passed under direct vision. Throughout the procedure, the patient's blood pressure, pulse, and oxygen saturations were monitored continuously. The pediatric colonoscope was introduced through the anus and advanced to the cecum, identified by the appendiceal orifice, IC valve and transillumination. The colonoscopy was technically difficult and complex due to a tortuous colon. Successful completion of the procedure was aided by changing the patient to a supine position and applying abdominal pressure. The patient tolerated the procedure fairly well. Scope In: 9:00:13 AM Scope Withdrawal Time 0 hours 22 minutes 30 seconds Scope Out: 10:00:28 AM Total Procedure Duration Time 1 hour 0 minutes 15 seconds Findings: Many small and large-mouthed diverticula were found in the sigmoid colon, mid sigmoid colon, distal sigmoid colon and ascending colon. There was no evidence of diverticular bleeding. No biopsies or other specimens were collected for this exam. A 3 mm polyp was found in the hepatic flexure. The polyp was semi-sessile. Biopsies were taken with a cold forceps for histology. Estimated blood loss was minimal. Internal hemorrhoids were found during retroflexion. The hemorrhoids were Grade I (internal hemorrhoids that do not prolapse). No biopsies or other specimens were collected for this exam. Impression: - Diverticulosis in the sigmoid colon, in the mid sigmoid colon, in the distal sigmoid colon and in the ascending colon. There was no evidence of diverticular bleeding. No specimens collected. - One 3 mm polyp at the hepatic flexure. Biopsied. - Internal hemorrhoids. No specimens collected. Recommendation: - Discharge patient to home (via wheelchair). - Resume previous diet today. - Continue present medications. - Await pathology results. - Telephone my office for pathology results in 1 week. - Repeat colonoscopy is recommended. The colonoscopy date will be determined after pathology results from today's exam become available for review. Procedure Code(s): --- Professional --- 72664, Colonoscopy, flexible; with biopsy, single or multiple Diagnosis Code(s): --- Professional --- K64.0, First degree hemorrhoids D12.3, Benign neoplasm of transverse colon (hepatic flexure or splenic flexure) Z01.818, Encounter for other preprocedural examination K57.32, Diverticulitis of large intestine without perforation or abscess without bleeding K57.30, Diverticulosis of large intestine without perforation or abscess without bleeding CPT copyright 2017 [employer]. All rights reserved. The codes documented in this report are preliminary and upon telecasting engineer review may be revised to meet current compliance requirements. Cezar Gonzáles MD 02/25/2022 10:11:49 AM This report has been signed electronically. Number of Addenda: 0 Note Initiated On: 02/25/2022 8:51 AM
--- NOTE | 2022-02-25 10:12 | OP.CCLET_ITS ---
02/25/2022 Yuri Romano MD [address] [place] [address] Re : Colonoscopy procedure for Hanna Hassan Dear Dr. Romano This procedure was performed on February. My impressions and recommendations are as follows: Impressions : - Diverticulosis in the sigmoid colon, in the mid sigmoid colon, in the distal sigmoid colon and in the ascending colon. There was no evidence of diverticular bleeding. No specimens collected. - One 3 mm polyp at the hepatic flexure. Biopsied. - Internal hemorrhoids. No specimens collected. Recommendations : - Discharge patient to home (via wheelchair). - Resume previous diet today. - Continue present medications. - Await pathology results. - Telephone my office for pathology results in 1 week. - Repeat colonoscopy is recommended. The colonoscopy date will be determined after pathology results from today's exam become available for review. My findings are described in the full procedure note, which is enclosed. If I can be of further assistance, please feel free to contact me at Doctor phone number(s): , Work: . Sincerely, Cezar Gonzáles MD 02/25/2022 10:11:49 AM This report has been signed electronically.
== END 2022-02-25 11:00 | disposition home or self-care (01) ==
LOC: EN 07:54 → AC 07:56
PROVIDERS: PCP Family Medicine Geriatric Medicine; Referring Provider Family Medicine Geriatric Medicine; Visit Provider Surgery
PROC: 0DJD8ZZ Inspection of Lower Intestinal Tract, Via Natural or Artificial Opening Endoscopic (ICD-10-PCS; CPT 45378; principal; 2022-02-25 08:55)
DX: D12.3 Benign neoplasm of transverse colon (principal); K57.30 Diverticulosis of large intestine without perforation or abscess without bleeding; Z80.0 Family history of malignant neoplasm of digestive organs; K64.0 First degree hemorrhoids; K57.32 Diverticulitis of large intestine without perforation or abscess without bleeding
CPT/HCPCS: 45380; 88305; J7120; J2405

== ENCOUNTER 2022-03-16 05:21 | Inpatient (IN) | payer OTHER, MEDICAID, SELFPAY ==
[2022-03-11 15:47] LABS: Hematocrit 38.3 % (40-54); Hemoglobin 12.3 g/dL (13.0-16.5); Mean Corp Hgb Conc 32.1 g/dL (32-36); Mean Corpuscular Hgb 30.9 pg (27.0-32.0); Mean Corpuscular Volume 96.2 fL (80-94); Mean Platelet Vol. 9.7 fl (6.2-12.0); Platelet Count 377 K/mm3 (150-450); RBC Distribution Width CV 13.9 % (11.6-14.6); RBC Distribution Width SD 49.3 fl (35.1-43.9); Red Blood Count 3.98 M/mm3 (4.6-6.2); White Blood Count 5.8 K/mm3 (4.4-11.0)
[2022-03-11 16:15] LABS: International Normalized Ratio 0.9; Prothrombin Time (Protime)PT. 12.2 SECONDS (11.7-14.9)
[2022-03-11 16:16] LABS: Partial Thromboplast Time 32.5 Seconds (24.1-36.2)
[2022-03-11 16:57] LABS: Anion Gap 5 (5-15); BUN 21 mg/dL (7-18); BUN/Creat Ratio 20.2 RATIO (10-20); Calcium,Total 9.4 mg/dL (8.5-10.1); Chloride 106 mmol/L (98-107); Creatinine, Serum 1.04 mg/dL (0.70-1.30); EST Glomerular Filtration Rate 77 mL/min (>60); Est Glom Filt Rate - Afr Amer 93 mL/min (>60); Glucose 89 mg/dL (74-106); Potassium 3.9 mmol/L (3.5-5.1); Sodium Level 143 mmol/L (136-145)
[2022-03-11 17:09] LABS: AST(SGOT) 13 U/L (15-37); Alanine Aminotransfer ALT/SGPT 17 U/L (16-61); Albumin, Serum 3.2 g/dL (3.2-5.0); Alkaline Phosphatase 79 U/L (45-117); Bilirubin, Direct < 0.05 mg/dL (0.00-0.30); Magnesium 2.2 mg/dL (1.6-2.6); Protein, Total 7.2 g/dL (6.4-8.2); Total Bilirubin < 0.10 mg/dL (0.20-1.00)
[2022-03-16] VITALS (14 sets, daily range): BP systolic 108–150; BP diastolic 64–91; PULSE 60–85; RESP 14–18; TEMP 36.2–37.2; O2SAT 94–100; BMI 19.4
[2022-03-16] MEDS: Acetaminophen 500 MG Tablet 1000 MG PO ×3 (06:13→20:36)
[2022-03-16] MEDS: Gabapentin 600 MG Tablet PO (06:14)
[2022-03-16 06:15] LABS: Bedside Glucose 96 mg/dL (74-106)
[2022-03-16] MEDS: Lactated Ringers 1,000 ML 40 ML IV ×2 (06:21→15:38)
--- NOTE | 2022-03-16 07:27 | HP.PCM_ITS ---
History and Physical Date of Service:? 03/03/22 MR#: [id number] Acct: [id number] Name:? LUIS HASSAN Rep #: [id number] : 1960 ? ? Provider: Dr. Cezar Gonzáles MD Age/Sex:? 61/M ? ? Location: [facility] Status: Signed Intake Vital Signs ? 02/26/2208:27 03/03/2210:17 Height 5 ft 8 in 5 ft 8 in Weight: ? 124 lb 4 oz BMI ? 18.8 Respiration ? 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 Acid reflux Chronic cough Colitis COPD (chronic obstructive pulmonary disease) Depression Diverticulitis of large intestine with complication Easy bruising Emphysema (subcutaneous) (surgical) resulting from a procedure Hemorrhoids History of diverticulitis HTN (hypertension) Low iron Marijuana use Migraines Prostate disease Shortness of breath on exertion Smoker Wears glasses Surgical History? History of appendectomy History of colonoscopy History of esophagogastroduodenoscopy (EGD) History of urologic surgery S/P appendectomy S/P inguinal hernia repair Family History? Uncle Colon cancer ?? ? x 3Father Heart disease Social History? Smoking Status:? Current every day smoker tobacco type: cigarettes alcohol intake:? never HPI HPI HPI: Patient presents to the office today for follow-up of colonoscopy 02/25/2022 as part of the work-up for his diagnosis of diverticulitis.? The results of that scope?including negative biopsy of polypoid lesion at the hepatic flexure?were reviewed with patient via telephone.? Today we plan to review treatment options.? But first, Mr. Hassan reports that he has done well following his colonoscopy.? He states that he was initially starving and more than he has in some time, but this did not necessarily translate into more abdominal discomfort.? He still describes his discomfort as a dull tooth ache in his left lower quadrant.? His dietary intake has regressed somewhat such that he is eating in spurts, but he confirms that he is still consuming approximately 6 protein shakes in addition to his meal intake.? He confirms that he is still sticking to a low fiber diet and taking a probiotic pill daily.? He continues to express a desire to be underway with surgery so that he can return to work.? He relates that he plans to cut down several pine trees over the next couple of days. ROS General General: Yes fatigue; No weight change, appetite, colon cancer, breast cancer or weakness HEENT HEENT: No difficulty swallowing, eye injury, eye surgery, swollen glands or hoarseness Endo Endocrine: No thyroid disease, diabetes mellitus, thyroid cancer, Hair loss, heat intolerance or cold intolerance Skin Skin: No rash or changing moles Breast Breast: No left breast lump, right breast lump, nipple discharge, breast pain, abnormal mammogram, abnormal US or breast enlargement Musc Musculoskeletal: No back problems, arthritis, rheumatoid arthritis, gout or joint pain Cardio Cardiovascular: Yes high blood pressure; No murmur, pacemaker, heart disease, atrial fibrillation, heart attack, heart stent, palpitations, shortness of breat with exertion or chest pain Psych Psychiatric: Yes depression and anxiety; No hearing voices Resp Respiratory: Yes shortness of breath, No sleep apnea, No cough, Yes COPD, No asthma, Yes emphysema and No wheezing Gastro Gastrointestinal: No abdominal pain, No nausea or vomiting, No diarrhea, No constipation, No blood in stool, Yes acid reflux, Yes hemorrhoids, Yes ulcers, No gallbladder problem and No black,tarry stools Lio Hematologic: No blood thinners, No blood disorders, Yes bleeding, No anemia and No blood clots Neuro Neurologic: No system reviewed and no additional complaints, except as documented, No as per HPI, No abnormal gait, No abnormal hearing, No abnormal movements, No abnormal speech, No behavioral changes, No burning sensations, No confusion, No convulsions, No disequilibrium, No dizziness, No localized weakness, No frequent falls, No headache(s), No lack of coordination, No loss of vision, No memory loss, No numbness, No other visual disturbances, No radicular pain, No restless legs, No sensory deficit, No syncope, No tingling, No tremor(s), No weakness and No other Exam Const General: cooperative and healthy appearing Resp Effort & Inspection: normal respiratory effort GI Inspection: scaphoid Palpation: soft Other: Minimal tenderness with palpation Assessment and Plan Assessment and Plan (1) Diverticulitis: ?Status:?Acute ?Comment: Patient presents for follow-up of a diagnostic colonoscopy on 02/25/2022 for further evaluation of his recurrent diverticular episodes.? He states that following this endoscopy session his symptoms have remained relatively stable at a irritating level which she describes as a dull toothache of the left lower quadrant.? He expresses further frustration that this is kept him from work and he wishes to schedule surgical intervention for this issue as soon as possible.? I have stressed with him the need to consider prehabilitation and optimize his nutrition ahead of surgery.? And there is many times previously, have encouraged smoking cessation as a means of decreasing his risk for anastomotic failure at the time of surgery.? He expresses understanding and willingness to consider this request.? Then I went on to discuss the results of the colonoscopy?that the area of affected colon was quite limited to the distal sigmoid.? This discussion was enhanced with the use of drawings and figures.? I then recommended we proceed with minimally invasive laparoscopic sigmoidectomy with primary stapled anastomosis.? Patient enthusiastically agreed.? I would like him enrolled in the ERS pathway for this procedure and we will tentatively plan for an operation in the next 2 weeks.? I was careful to detail postoperative expectations and lifting restrictions with patient at this visit.? I have requested that he avoid any exertional activity or lifting greater than 15 pounds for 4 weeks postop. ?Plan: ? ERAS enrollment for laparoscopic sigmoidectomy with planned primary stapled colorectal anastomosis I have re-examined the patient. There are no clinical changes since date of exam. Patient confirms that the symptoms have remained stable with a dull ache in his left lower quadrant. He also confirms that he has completed his prep and his ERAS shake was taken yesterday evening. Postoperative expectations have been reviewed. Neither patient nor family have any further questions. Proceed with laparoscopic sigmoid colectomy with planned primary anastomosis as described above.
[2022-03-16] MEDS: Lubricating Jelly 60 GM Tube 30 GM (07:30)
--- NOTE | 2022-03-16 07:30 | COL_PTH ---
PATIENT: LUIS HERRMANN LOC: [facility] U#:[id number] AGE/SX: 61/M ROOM: IA319 RE03/16/[address]: Dr. Cezar Gonzáles MD : 1960 BED: 1 DIS: 03/18/2022 SPEC #: [id number] RECD: 03/16/22 11:53 STATUS: DELMY RECara #: [id number] DEMETRIS: 03/16/22 07:[address]: Cezar Gonzáles DEPT: SURGICAL PATHOLOGY RECD BY: Jena Barrera ENTERED: 03/16/22 12:33 SP TYPE: COLON OTHR DR: Dr. Yuri Romano MD Tissues: A - Colon, NOS B - Colon Donuts C - Colon Donuts Procedures: Surgery Specimen Level III Surgery Specimen Level V HEADER OPERATION: ERAS, laparoscopic sigmoid colectomy PRE-OP DIAGNOSIS: Acute diverticulitis TISSUE SUBMITTED: A ? Sigmoid colon, B ? Proximal donut, C ? Distal donut MICROSCOPIC DIAGNOSIS A. Sigmoid colon, colectomy: Diverticulosis and mild diverticulitis. Two benign pericolonic lymph nodes. B. Proximal donut: Colonic donut, no pathologic diagnosis. C. Distal donut: Colonic donut, no pathologic diagnosis. :chula 03/18/2022 MICROSCOPIC DESCRIPTION Slides are reviewed. GROSS DESCRIPTION A - Received in fixative is one container labeled with the patient's name and designated sigmoid colon, suture yanes distal end. The specimen consists of a segment of colon with attached pericolonic adipose tissue measuring 15 cm in length. Both resection margins are stapled. The distal end is identified by a suture. No mucosal lesion is identified. Sections reveal multiple diverticula. No obviously ruptured diverticula are noted. Also present in the container is a piece of soft tissue with multiple ramsey measuring 3 x 0.5 x 0.5 cm. Sections will be submitted after fixation. / :chula 03/16/2022 Sections of pericolonic adipose tissue do not reveal any obviously enlarged lymph node. Chart Collector sections are submitted in six cassettes as follows: 1 ? proximal resection margin, 2 ? distal resection margin, 3-5 ? diverticula, 6 ? pericolonic adipose tissue. / :chula 03/17/2022 B - Received in fixative is one container labeled with the patient's name and designated proximal donut. The specimen consists of a donut-shaped piece of colonic tissue measuring 1 x 1.5 x 1 cm. Multiple sutures are noted. Chart Collector sections are submitted in one cassette. / LEXY:chula 03/16/2022 C - Received in fixative is one container labeled with the patient's name and designated distal donut. The specimen consists of a donut-shaped piece of colonic tissue measuring 1.5 x 1 x 0.8 cm. The specimen is sectioned and submitted entirely in one cassette. / LEXY:chula 03/16/2022 TC:5 CPT: 77679, 44868 x2
--- NOTE | 2022-03-16 07:56 | OP.PCM_ITS ---
Report of Operation Date of Procedure: 03/16/22 Pre-Operative Diagnosis: Recurrent diverticulitis Post-Operative Diagnosis: Same Surgery/Procedure Performed:: Cystoscopy and left ureteral catheter placement Description of Surgical Findings:: Is a 61-year-old male has recurrent diverticulitis general surgeon is planning to do a sigmoidectomy and called me in to do a ureteral catheter on the left side requested by the primary surgeon, he wanted me to placed a ureteral catheter on the patient's left side to assist in surgery. Patient was taken back to the operating room after smooth induction of anesthesia he was placed in dorsolithotomy position. The penis and testicles were prepped and draped in usual sterile fashion. Went into the bladder with a 21 [place]uvian rigid cystourethroscope, the prostate had some mild obstruction obvious implants from prior UroLift performed by another urologist. Had a nice fairly open channel. I then went into the the bladder there is no tumors or stones seen within the bladder identified the trigone identified the left ureteral orifice and then with a Glidewire and a Pollick catheter advanced a Pollick catheter up the left ureteral orifice. Remove the wire left the Pollick catheter and place a 5 Peruvian open-ended catheter put a catheter in the patient's bladder and the case was then released back to the general surgeon who will remove the catheter at the end of the case. Surgeon: Jaret Long Type of Anesthesia: General Admit VTE Documentation VTE Present on Admission: No VTE Mechan Device Prophylaxis: SCD's
[2022-03-16] MEDS: 0.9% Normal Saline (Pres. free 10 ML Vial (08:22)
[2022-03-16] MEDS: BUPIVACAINE LIPOSOME/PF 20 ML VIAL OPERA.SITE (08:22)
--- NOTE | 2022-03-16 12:42 | PCM.OPRPT ---
Report of Operation Date of Procedure: 03/16/22 Pre-Operative Diagnosis: Hematuria Post-Operative Diagnosis: The same Surgery/Procedure Performed:: Cystoscopy Description of Surgical Findings:: I was called back in to see the patient they were concerned about the blood in the urine in the beginning the case I did a cystoscopy and placement of ureteral catheter. It looks like there was just a little bit of blood in the urine like a light pink-colored urine which can be normal after the catheter placement but to reassure the patient and the surgeon prepped in we took out the catheter went in with the cystoscope and checked the bladder there was no signs of any tumors or problems within the bladder a few small blood clots either drained out I then removed the ureteral catheter from the left ureter that was placed for the case is a little bit of blood from the ureteral orifice. Surgeon reports that he did not have any problems with dissection in the no injury to the ureter the ureteral catheter came out all intact so at this point drained the bladder and I think just the blood in the urine just from the ureteral catheter placement should clear up on its own no interventions necessary explained this to the surgeon. Surgeon: Jaret Long
--- NOTE | 2022-03-16 12:48 | PCM.OPRPT ---
Report of Operation Date of Procedure: 03/16/22 Pre-Operative Diagnosis: Recurrent complicated diverticulitis Post-Operative Diagnosis: Same Surgery/Procedure Performed:: Hand-assisted laparoscopic sigmoidectomy with primary stapled colorectal anastomosis Description of Surgical Findings:: ? Dense inflammatory process between the rectosigmoid colon and sacral promontory requiring conversion to hand-assisted procedure ? Complete donuts following stapled colorectal anastomosis, however, small intermittent air leak and oversewing anastomosis circumferentially Surgeon: Cezar Gonzáles jewelry department supervisor: Renae Barraza Type of Anesthesia: General/Supplemental Anesthesiologist: Mike Street Special Medications: Taps block bupivacaine with Exparel Specimen's removed: Sigmoid colon Drains: None Estimated Blood Loss (mL): 150 Description of Procedure: After appropriate identification in the preoperative holding area and confirming consents, patient was brought to the operating room where he was positioned supine on the operating room table. There he underwent induction with general endotracheal anesthetic and administration of preoperative antibiotics with anesthesia. He was placed into leg holders in lithotomy position. Dr. Long from urology presented for cystoscopy with left ureteral stent placement. Please see his separate dictation for details of this procedure. Patient's rectum was irrigated with Betadine and the abdomen was then prepped and draped in usual sterile fashion. Formal timeout was conducted to confirm the patient and the procedure. A Gutierrez entry was made in the infraumbilical position and a 12 mm balloon trocar was placed. Pneumoperitoneum was established at 15 mmHg and I began placement of a 5 mm port in the right upper quadrant/midclavicular line. During placement of this port under laparoscopic visualization, anesthesia notified me that the patient was having a profound vagal response with significant bradycardia and requested immediate reduction in the pneumoperitoneum. Our insufflation was immediately ceased and pneumoperitoneum evacuated by opening our ports. After receiving a round of atropine by anesthesia, patient's heart rate rebounded and blood pressure was stable. Therefore, they gave us the go ahead to proceed with the remainder of the case. A 12 mm port was placed in the right lower quadrant under laparoscopic visualization and a 5 mm port was placed in a suprapubic position under direct laparoscopic visualization. Patient was placed into Trendelenburg with the right side down and the colon was medialized along the white line of Toldt as well as several attachments to the left lateral sidewall using a laparoscopic LigaSure device. There proved to be relatively little inflammation in the proximal portion of the sigmoid colon, but as I moved more distally to continue this lateral to medial mobilization, I encountered significant bogginess in the colon and the presacral space. With this resistance I moved more proximally again to ensure adequate mobilization and at this time did identify the gonadal vessels and ureter in the retroperitoneum. I then moved medially to assess the inflammatory process between the sacrum posteriorly and the posterior rectal wall. There was very dense inflammation in this area that precluded any attempts at removing the rectum from the pelvis using the laparoscopic LigaSure or other graspers. On seeing this, I chose to make a retrocolic window by first elevating the more proximal sigmoid colon between 2 graspers and bluntly made a window through the mesocolon using the laparoscopic LigaSure directly against the colon wall. I then extended this opening inferiorly to the presacral space. However, once again there was dense inflammatory change that precluded further progress. At this point I requested the assistance of my partner, Dr. Chaidez while asking for preparations to convert to a hand?assist approach. She graciously presented immediately to the room and stated she felt this conversion to be necessary as well. Therefore, I sharply connected the infraumbilical and suprapubic incisions and used electrocautery to deepen this down through the fascia. Once the opening was fully extended, the trocars were removed and we placed a medium size Wang wound protector. Given the shallowness of the patient's abdominal wall, I elected to forego placement of a GelPort and simply performed the procedure through the wound protector. I was able to perform finger fracture of the dense adhesions between the rectum and the sacrum down to softer rectum distally. A window was made posteriorly to the rectum and laparoscopic [place] stapler was used to divide the rectum distally beyond the area of bulky rectosigmoid colon. A second firing was made through the more proximal sigmoid colon, again, in an area devoid of inflammatory change and diverticula. An orienting stitch was placed on the excised colon and the specimen was passed off the field for pathologic processing. We then prepped about the proximal sigmoid colon and delivered it from the abdomen where the staple line was sharply removed. Still grasping the colon, we tried a series of lubricated sizers, but only the 25 mm sizer would pass. On trying the larger 29 mm sizer there was slight tearing of the mucosa and we aborted this larger dilation. Electing the EEA stapler, a pursestring stitch was placed about the colotomy using a 2-0 Prolene, and the anvil was sewn into place. Several epiploic appendages and redundant mucosa were removed with electrocautery to reduce the bulkiness for the future stapling. We then attempted to place sizers transrectally, but found significant resistance in the midportion of the rectum. On closer inspection it was clear this was due to tethering adhesions to the lateral sidewall which distorted the course of the rectum. With great care these portions the lateral stalks were taken with LigaSure application. Ultimately we were able to achieve passage of the EEA stapler and confirming its position at the end of the rectum with the staple line we positioned it so that the stapler post opened anterior to the staple line. The anvil and the post were connected with a click and the stapler was fired. It was then opened and withdrawn from the rectum without resistance. 2 complete donuts were confirmed on the back table and the pelvis was filled with irrigation to perform a leak test. The colon was occluded proximal to the anastomosis and a proctoscope was inserted transanally to insufflate the rectum. There was a intermittent bubbling that seem to be coming from the posterior lateral aspect of the anastomosis so the irrigation was suctioned free of the pelvis and we elected to oversew the anastomosis to remedy this air leak. 3-0 silk pop-off's were placed in an interrupted fashion circumferentially about the anastomosis in a way to imbricate the staple line. These were then tied and the leak test was repeated. This time there was no bubbling. Satisfied with this result, we ensured hemostasis within the pelvis and began closure of the abdomen. Gowns and gloves were changed and a sterile closing tray was used for this process. The wound protector was removed from the lower midline incision and the patient's right lower quadrant 12 port incision was closed from the peritoneum at the fascia using a 0 Vicryl stitch. The lower midline incision was closed in a bidirectional fashion using #1 PDS and tying in the middle. The fascia was irrigated and the skin was closed with a running 4-0 Monocryl suture. The port site was closed with a subcuticular closure also using 4-0 Monocryl. A remaining right upper quadrant/midclavicular 5 mm port site allowed passage of a 5 mm trocar and pneumoperitoneum was reestablished for a final time. Under laparoscopic visualization I performed a TAP block with 80 mL of a cocktail of bupivacaine and Exparel. At this time anesthesia notified me that the patient's urine was a burgundy red in color. They stated that prior checks had shown clear urine, and this was a clear departure from what they had observed all case. I then held the urine collection up to show me a burgundy colored urine. To investigate the cause of this issue, we first began by irrigating the Mike catheter and there was some dark red irrigant return initially, but this cleared rather rapidly. We then clamped the Mike and filled the bladder. Pneumoperitoneum was reestablished and I made a laparoscopic investigation of the peritoneum, but did not see any accumulation of fluid in the pelvis. At this time urology was notified of this finding and was asked to present to the room. I also placed a 5 mm port through the patient's right lower quadrant port site after opening this port site at the skin and performed a limited exploration of the retroperitoneum where the presumed course of the ureter would be, but did not find any evidence of injury. Dr. Long then presented and removed the patient's Mike catheter and ureteral stenting and performed a second cystoscopy. Within the bladder he found a small clot and stated he believed this was the cause of our hematuria. A Mike catheter was replaced and pneumoperitoneum was evacuated and the abdomen. The 2 remaining port sites were closed at the skin with a 4-0 Monocryl in subcuticular fashion. Steri-Strips and OpSite/Mepilex dressings were applied. Patient was then awoken from anesthetic and taken to PACU for ongoing recovery. Complications ? Vagal response to peritoneum insufflation that improved with medications from anesthesia ? Hematuria that was confirmed to come from a clot within the bladder with intraoperative cystoscopy Admit VTE Documentation VTE Mechan Device Prophylaxis: SCD's
--- NOTE | 2022-03-16 14:58 | CPS ---
Pt c/o pain below scapula, R.T. auscultated where pt indicated but no rub or adventitious sounds heard. RN in room and aware of pt's pain complaint.
[2022-03-16] MEDS: Docusate Sodium 100 MG Capsule PO (20:36)
[2022-03-17 02:40] VITALS: BP 134/88; PULSE 64; RESP 18; TEMP 37; O2SAT 98
[2022-03-17] MEDS: Acetaminophen 500 MG Tablet 1000 MG PO ×4 (02:40→21:09)
[2022-03-17 06:14] LABS: Hematocrit 35.2 % (40-54); Hemoglobin 11.2 g/dL (13.0-16.5); Mean Corp Hgb Conc 31.8 g/dL (32-36); Mean Corpuscular Hgb 29.6 pg (27.0-32.0); Mean Corpuscular Volume 93.1 fL (80-94); Mean Platelet Vol. 9.3 fl (6.2-12.0); Platelet Count 344 K/mm3 (150-450); RBC Distribution Width CV 13.5 % (11.6-14.6); RBC Distribution Width SD 45.7 fl (35.1-43.9); Red Blood Count 3.78 M/mm3 (4.6-6.2); White Blood Count 9.9 K/mm3 (4.4-11.0)
[2022-03-17 06:53] LABS: Anion Gap 5 (5-15); BUN 14 mg/dL (7-18); BUN/Creat Ratio 14.6 RATIO (10-20); Calcium,Total 8.7 mg/dL (8.5-10.1); Chloride 106 mmol/L (98-107); Creatinine, Serum 0.96 mg/dL (0.70-1.30); EST Glomerular Filtration Rate 84 mL/min (>60); Est Glom Filt Rate - Afr Amer 102 mL/min (>60); Estimated Creatinine Clearance 64.68 ml/min; Glucose 97 mg/dL (74-106); Potassium 4.2 mmol/L (3.5-5.1); Sodium Level 139 mmol/L (136-145)
[2022-03-17] MEDS: Docusate Sodium 100 MG Capsule PO ×2 (07:58→21:10)
--- NOTE | 2022-03-17 08:38 | PCM.PN.SRG ---
Subjective Subjective Patient seen and examined during AM rounds. He initially is resting in bed, but quickly becomes tearful stating that he has more pain in his abdomen today. He requests additional pain medication to help with this. He also complains that his Mike catheter continues to bother him. He states that he does not remember the events of yesterday. He is eager to be get up and walk about. He states that he has eaten some Jell-O without stomach upset. Objective Data Objective Data Vital Signs: Vital Signs Temp Pulse Resp BP Pulse Ox O2 Del Method O2 Flow Rate 98.6 F 64 18 134/88 H 98 Room Air 4 03/17/22 02:40 03/17/22 02:40 03/17/22 02:40 03/17/22 02:40 03/17/22 02:40 03/17/22 02:40 03/16/22 20:33 Oxygen Flow Rate (L/min) 4 Oxygen Delivery Method Room Air Weight: 128 lb Body Mass Index (BMI) 19.4 Intake & Output: Intake and Output for Last 24 Hours 03/15/22 03/16/22 03/17/22 23:59 23:59 23:59 Intake Total 2971.33 / 2971.33 Output Total 1300 / 1300 450 / 450 Balance 1671.33 / 1671.33 -450 / -450 Lab / Micro Data Result Diagrams: 03/17/22 06:07 03/17/22 06:07 Labs: Laboratory Results - last 24 hr 03/17/22 06:07: WBC 9.9, RBC 3.78 L, Hgb 11.2 L, Hct 35.2 L, MCV 93.1, MCH 29.6, MCHC 31.8 L, RDW Std Deviation 45.7 H, RDW Coeff of Loc 13.5, Plt Count 344, MPV 9.3 03/17/22 06:07: Sodium 139, Potassium 4.2, Chloride 106, Carbon Dioxide 28.0, Anion Gap 5, BUN 14, Creatinine 0.96, Estim Creat Clear Calc 64.68, Est GFR (MDRD) Af Amer 102, Est GFR (MDRD) Non-Af 84, BUN/Creatinine Ratio 14.6, Glucose 97, Calcium 8.7 Physical Exam Const oriented x3 Constitutional Narrative: Mild distress from breakthrough abdominal pain Resp normal respiratory effort GI GI Narrative: Operative dressings are intact without drainage, nondistended, soft, tender to palpation about incisions Bladder / Kidney Exam: catheter in place urethral (Draining clear yellow urine) Assessment & Plan Assessment/Plan (1) Status post laparoscopic-assisted sigmoidectomy: PLAN: Patient is postoperative day 1 from hand-assisted laparoscopic sigmoidectomy with primary stapled anastomosis. He is experiencing some breakthrough abdominal pain that was not present immediately postoperatively. I will look to add a low-dose oral narcotic (with hopes of minimizing any constipating effects since this is an ERAS patient, as well as converting his NSAID from ibuprofen to Toradol. There are some immediate postoperative concerns about hematuria, but patient's urine is now running clear and his creatinine is normal. With these positive clinical assurances, we will plan to remove his Mike catheter today. PLAN: Plan Neuro: As needed acetaminophen, as needed oxycodone 5 mg, Toradol scheduled Pulm/CV: Incentive spirometer, no other current issues FEN/GI: BMP within normal limits, will trend while patient on restricted diet, continue clear liquids until patient having bowel function, add Ensure clears : Plan to discontinue Mike catheter today and follow for spontaneous void Heme/ID: CBC shows slight downtrend in patient's hemoglobin but this is expected given that he is postoperative day 1 and had significant volume of intravenous fluid perioperatively. WBC within normal limits on CBC Endo: No current issues Proph: SCDs, patient encouraged to mobilize Dispo: Continue inpatient stay Charges/Coding Visit Charges Inpatient E&M: 26587 Subs Hosp L2
[2022-03-17 08:40] VITALS: BP 138/78; PULSE 73; RESP 18; TEMP 36.6; O2SAT 100
[2022-03-17 09:00] VITALS: BP 140/80; PULSE 53; PULSE 60; RESP 16; TEMP 36.6; O2SAT 98
[2022-03-17 09:18] VITALS: O2SAT 93
[2022-03-17] MEDS: oxyCODONE 5 MG Tablet PO ×3 (09:31→21:09)
[2022-03-17] MEDS: Tamsulosin HCl 0.4 MG Capsule PO (09:37)
[2022-03-17] MEDS: 0.9% Saline Lock 10 ML Syringe IV (10:19)
[2022-03-17] MEDS: Ketorolac 15 MG/ML Vial IV (10:19)
--- NOTE | 2022-03-17 10:50 | CASEMGMT ---
RN CM ROUTE SERVICE REPRESENTATIVE CM to room to meet with patient for initial transition planning/care coordination assessment. RN RACHEL introduced self and role at [facility]. Pt voices understanding and consents to assessment at this time. Pt sitting in recliner chair in room. Girlfriend, Jennifer, sitting beside pt. Pt agreeable to her being present during assessment and stated, I'd prefer her to be here. Pt is A/O at this time and answers most questions. He did defer some questions to Jennifer. Care providers, pharmacy, and demographics verified/updated at this time. PCP: Dr Romano Specialists:Dr Gonzáles-surgeon, Dr Mcdonald--urologist in [place] Preferred Pharmacy: [facility] Retail Insurance: [place] [employer] Plan listed as primary insurance. Pt states he is not aware of having this insurance, stating, Not that I know of. Call placed to Saira in registration and she states [place] [employer] was verified w/plan start date of 02/18/22. Pt states he is only aware of having [facility] Community Plan/[employer]. Pt provided w/contact # for [place] [employer]: [phone] and advised him to call them re: active coverage. Prescription Benefit: Yes Living Will/HPOA: Pt does not currently have LW/HCPOA and declines info at this time. Pt made aware that he can contact as an out-pt and make appt in the future if he decides he would like to talk with someone about this or would like to utilize [facility] social work for advanced directive completion. Pt has [employer] card with information and contact number. Pt expresses understanding. LNOK: 4 children, brother-Kelechi Hassan, mother-Lyubov Living Arrangements: Lives alone in a mobile home w/3-4 steps to enter. Pt states he is independent at home. Transportation: Pt states drives self and states no transportation concerns at this time. Mother and Girlfriend, Jennifer, can also assist if needed. DME: Denies using any DME and denies needs. HHC/SNF: No hx of either. Pt wishes to return home and states has no concerns with going home at time of discharge. CM to follow for any discharge planning/needs. Pt and GF, Jennifer, voice no concerns/needs at this time. Advised them to ask for CM if any further questions/concerns/needs arise. They voice understanding. PLAN: Home w/support of LYSSA MELCHORN RN CM
[2022-03-17 16:47] VITALS: BP 97/63; PULSE 66; RESP 16; TEMP 36.9; O2SAT 98
[2022-03-17 21:04] VITALS: BP 101/63; PULSE 62; RESP 16; TEMP 36.5; O2SAT 97
[2022-03-18 03:00] VITALS: BP 130/79; PULSE 58; RESP 14; TEMP 36.6; O2SAT 96
[2022-03-18] MEDS: Acetaminophen 500 MG Tablet 1000 MG PO ×2 (03:24→10:23)
[2022-03-18 06:46] LABS: Absolute Lymphocyte Count 2.29 X10^3/uL (0.83-4.51); Absolute Neutrophil Count 4.4 X10^3/uL (2.0-7.7); Basophil# 0.04 X10^3/uL; Basophil% 0.5 % (0-1); Eosinophil# 0.39 X10^3/uL; Eosinophils% 5.2 % (0-5); Hematocrit 33.8 % (40-54); Hemoglobin 11.1 g/dL (13.0-16.5); Lymphocyte # 2.29 X10^3/ul (0.83-4.51); Lymphocyte % 30.3 % (19-41); Mean Corp Hgb Conc 32.8 g/dL (32-36); Mean Corpuscular Hgb 31.3 pg (27.0-32.0); Mean Corpuscular Volume 95.2 fL (80-94); Mean Platelet Vol. 9.5 fl (6.2-12.0); Monocyte# 0.39 X10^3/uL; Monocyte% 5.2 % (0-10); NRBC Flagged by Analyzer 0 % (0-5); Neutrophil # 4.41 X10^3/uL (2.7-7.7); Neutrophil % 58.4 % (47-70); Platelet Count 295 K/mm3 (150-450); RBC Distribution Width CV 13.6 % (11.6-14.6); RBC Distribution Width SD 48.1 fl (35.1-43.9); Red Blood Count 3.55 M/mm3 (4.6-6.2); White Blood Count 7.6 K/mm3 (4.4-11.0)
[2022-03-18 07:14] LABS: Anion Gap 4 (5-15); BUN 22 mg/dL (7-18); BUN/Creat Ratio 25.8 RATIO (10-20); Chloride 106 mmol/L (98-107); Creatinine, Serum 0.85 mg/dL (0.70-1.30); EST Glomerular Filtration Rate 96 mL/min (>60); Est Glom Filt Rate - Afr Amer 117 mL/min (>60); Estimated Creatinine Clearance 73.05 ml/min; Glucose 95 mg/dL (74-106); Potassium 4.3 mmol/L (3.5-5.1); Sodium Level 140 mmol/L (136-145)
[2022-03-18 07:37] VITALS: O2SAT 94
[2022-03-18 09:00] VITALS: BP 131/61; PULSE 60; RESP 18; TEMP 36.7; O2SAT 95
--- NOTE | 2022-03-18 09:00 | PN.SURG_ITS ---
Subjective Subjective Patient seen and examined during AM rounds. He is resting comfortably in bed with his own pajamas on. He states that he has manageable amount of pain right his abdominal wall, but he no longer has shoulder discomfort or bladder discomfort. He confirms that he is urinating freely following Mike discontinuation yesterday. He states that he has already had breakfast and was able to consume most of it without issue?he admits that the remainder was due to the unappealing texture of the food rather than any nausea. He confirms that he has now had 5 bowel movements with some blood on the initial bowel movements, but none recently. He otherwise remarks that they are somewhat loose in character still. He requests to know whether he can now discharge home. Objective Data Objective Data Vital Signs: Vital Signs Temp Pulse Resp BP Pulse Ox O2 Del Method O2 Flow Rate 97.9 F 58 L 14 130/79 H 94 Room Air 4 03/18/22 03:00 03/18/22 03:00 03/18/22 03:00 03/18/22 03:00 03/18/22 07:37 03/18/22 07:37 03/18/22 03:00 Oxygen Flow Rate (L/min) 4 Oxygen Delivery Method Room Air Weight: 128 lb 0.006 oz Body Mass Index (BMI) 19.4 Intake & Output: Intake and Output for Last 24 Hours 03/16/22 03/17/22 03/18/22 23:59 23:59 23:59 Intake Total 2971.33 / 2971.33 850 / 1200 750 / 750 Output Total 1300 / 1300 750 / 750 250 / 250 Balance 1671.33 / 1671.33 100 / 450 500 / 500 Medical Nutrition Assessment Dietitian: Malnutrition Criteria Met Start: 03/17/22 10:56 Freq: Status: Active Protocol: Document 03/17/22 10:56 RMA (Rec: 03/17/22 10:56 RMA [id number]) Nutrition Malnutrition Evidence of Malnutrition Exists Yes Malnutrition (severe): Acute Illness/Injury Evidenced By Suboptimal Energy Intake ( Severe),Weight Loss (Severe) Clinical Problem Acute Disease or Injury Related Malnutrition Etiology Severe protein-calorie malnutrition in the context of acute illness related to altered GI function and inadequate oral intake Signs/Symptoms as evidenced by ~15% wt loss x past 3-4 months and PO meeting less than 50% estimated nutrition needs x 6 months Status Active Problem Recommendation Dietitian Recommendations/Changes Continue clear liquid diet and advance diet as tolerated to Transitional with goal of Regular diet. Will add 240 ml ensure clear TID w/ meals. Adjust ONS as diet advanced from clear liquids. Lab / Micro Data Result Diagrams: 03/18/22 05:52 03/18/22 05:52 Labs: Laboratory Results - last 24 hr 03/18/22 05:52: WBC 7.6, RBC 3.55 L, Hgb 11.1 L, Hct 33.8 L, MCV 95.2 H, MCH 31.3, MCHC 32.8, RDW Std Deviation 48.1 H, RDW Coeff of Loc 13.6, Plt Count 295, MPV 9.5, Immature Gran % (Auto) 0.400, Neut % (Auto) 58.4, Lymph % (Auto) 30.3, [place] % (Auto) 5.2, Eos % (Auto) 5.2 H, Baso % (Auto) 0.5, Absolute Neuts (auto) 4.4, Absolute Lymphs (auto) 2.29, Nucleated RBC % 0 03/18/22 05:52: Sodium 140, Potassium 4.3, Chloride 106, Carbon Dioxide 30.0, Anion Gap 4 L, BUN 22 H, Creatinine 0.85, Estim Creat Clear Calc 73.05, Est GFR (MDRD) Af Amer 117, Est GFR (MDRD) Non-Af 96, BUN/Creatinine Ratio 25.8 H, Glucose 95, Calcium 9.0 Physical Exam Const oriented x3 Resp normal respiratory effort GI GI Narrative: Nondistended, operative dressings in place without drainage?once removed Steri- Strips remain intact, soft, appropriately tender to palpation about incisions Assessment & Plan Assessment/Plan (1) Status post laparoscopic-assisted sigmoidectomy: PLAN: Patient is postoperative day 2 from hand-assisted laparoscopic sigmoide ctomy with primary stapled anastomosis. His abdominal pain is well controlled with the changes made yesterday and he now request discharge home after demonstrating return of bowel function and spontaneously voiding following Mike discontinuation. PLAN: Plan Neuro: As needed acetaminophen, as needed oxycodone 5 mg, transition back to ibuprofen as needed Pulm/CV: Incentive spirometer, no other current issues FEN/GI: BMP again within normal limits, patient tolerating soft diet with ensures : Patient voiding spontaneously following Mike discontinuation yesterday Heme/ID: Hemoglobin stable today. WBC within normal limits on CBC Endo: No current issues Proph: SCDs, patient encouraged to mobilize Dispo: Plan for DC to home later today with outpatient follow-up Charges/Coding Visit Charges Inpatient E&M: 50399 Subs Hosp L2
[2022-03-18] MEDS: oxyCODONE 5 MG Tablet PO (09:08)
[2022-03-18 10:23] VITALS: BP 133/66; PULSE 66; RESP 18; TEMP 36.7; O2SAT 96
--- NOTE | 2022-03-18 10:24 | DCINST_ITS ---
Discharge Instructions Diet Discharge Diet: Soft diet (Continue soft diet until follow-up) and - (Examples of diet are mashed potatoes, applesauce, yogurt, soups, etc.) Activity Discharge Activity: May Not Drive (5 days) and May Shower (starting today) Ice area for (Minutes): 20 Lifting Restrictions: No lifting greater than 15 pounds for 4 weeks Dressing / Incision Call your doctor if your incision/area has: Continuous Slow Oozing, Sudden Increased Bleeding, Increased Pain/ Swelling, Increased Redness, Foul Smelling Discharge and Swelling at the incision site Call your doctor if you observe: Fever of 101 or Higher Suture Line Care: Avoid Pulling/Pushing and Avoid Pinching/Bending Cleanse incision/area with: Soap & Water Follow Up Care Please Follow Up With: Cezar Gonzáles MD When: 1 week. Please call our office. Test Results: Test results from this visit will be discussed in further detail at your follow- up appointment, if applicable. Discharge Plan Admission Admit Date/Time: 03/16/22 05:21 Primary Reason for Your Visit: Sigmoid diverticulitis Attending Provider: Cezar Gonzáles Primary Care Provider: Yuri Romano Chi Instructions Additional Instructions / Restrictions: You may take Tylenol every 6 hours as needed for pain. You have been given a small course of narcotic pain medication as needed. You may also try Motrin between taking Tylenol. Recommend no lifting greater than 15 pounds for 4 weeks You may shower starting today Continue on a soft food diet until your follow-up with Dr. Gonzáles in 1 week You will need to contact our office to schedule a 1 week follow-up with Dr. Gonzáles Please refrain from any excessive machine work or heavy lifting Recommend refraining from smoking until completely healed. Contact our office if an concerns or questions prior to your office visit. Discharge Orders/Prescriptions Prescriptions: New acetaminophen 500 mg Tablet 1,000 mg PO Q6H Qty: 0 0RF oxycodone 5 mg Tablet 5 mg PO Q6H PRN PRN (Reason: Pain Score 6-10) 3 Days Qty: 9 0RF Continued tamsulosin 0.4 mg capsule 0.4 cap PO DAILY Probiotic 100 billion cell Capsule 1 cap PO DAILY cyanocobalamin (vitamin B-12) [Vitamin B-12] 250 mcg Tablet 500 mcg PO QODAY Discontinued metronidazole 500 mg tablet 500 mg PO DIRECTED Rx Instructions: Take 2 tablets at 1:00, 3:00, and 11:00 neomycin 500 mg tablet 500 mg PO DIRECTED Rx Instructions: Take 2 tablets at 1:00, 3:00, and 11:00 Referrals / Follow Up: Cezar Gonzáles MD [Med Staff - Active Staff] - (Please call our office for a 1 week follow-up with Dr. Gonzáles) Yuri Romano Chi, MD [Primary Care Provider] - Disposition Disposition (needs filled in before D/C Order can be placed): Home, Self Care
--- NOTE | 2022-03-18 10:27 | DS.PCM_ITS ---
Providers Date of Admission: 03/16/22 Primary Care Physician: Dr. Yuri Romano MD Reason For Visit: ERAS, LAP SIG COLECTOMY Diagnosis Discharge Diagnosis (1) Status post laparoscopic-assisted sigmoidectomy: Status: Acute Code(s): Z90.49 - Acquired absence of other specified parts of digestive tract Medications at Discharge Home Medications tamsulosin 0.4 mg capsule 0.4 cap PO DAILY Check with primary doctor 03/31/21 Lactobacillus 40-Bifidobact 3-S.thermophilus 100 billion cell capsule (Probiotic) 1 cap PO DAILY probiotic 02/23/22 cyanocobalamin (vitamin B-12) 250 mcg tablet (Vitamin B-12) 500 mcg PO QODAY supplement 03/10/22 acetaminophen 500 mg tablet 1,000 mg PO Q6H #0 tabs 03/18/22 oxycodone 5 mg tablet 5 mg PO Q6H PRN PRN Pain Score 6-10 3 days #9 tabs 03/18/22 Hospital Course Operations - (Hand-assisted laparoscopic sigmoidectomy with primary stapled colorectal anastomosis and TAP block) Procedures - (Cystoscopy and left ureteral catheter placement) Summary of Care Provided Minutes Spent on Discharge: 35 Hospital Course: Patient is a 61 y/o M who presents fro an elective sigmoid colectomy for recurrent diverticulitis. Dr. Gonzáles performed a hand-assisted laparoscopic sigmoidectomy with primary stapled anastomosis and hand sewn anastomosis. Dr. Long performed a cystoscopy and left ureteral catheter placement on 03/16/22. Patient tolerated the procedure well. Patient had an uncomplicated hospitalization. Upon discharge, patient's pain was controlled on oxycodone and Tylenol alternating. As well as Toradol. He denies nausea, vomiting with diet. He was tolerating a full liquid diet. He denies fever. He notes abdominal tenderness, no mesha pain. He notes his shoulder pain has improved. He notes he is urinating well. He has passed flatus and had multiple bowel movements. He has been ambulating well. Patient had met criteria for discharge. Physical Exam GI non-distended GI Narrative: Incisional dressing were removed at bedside. Steri-strips intact. Slight tenderness to incisional areas. Medical Records Data Medical Nutrition Assessment Dietitian: Malnutrition Criteria Met Start: 03/17/22 10:56 Freq: Status: Active Protocol: Document 03/17/22 10:56 RMA (Rec: 03/17/22 10:56 RMA [id number]) Nutrition Malnutrition Evidence of Malnutrition Exists Yes Malnutrition (severe): Acute Illness/Injury Evidenced By Suboptimal Energy Intake ( Severe),Weight Loss (Severe) Clinical Problem Acute Disease or Injury Related Malnutrition Etiology Severe protein-calorie malnutrition in the context of acute illness related to altered GI function and inadequate oral intake Signs/Symptoms as evidenced by ~15% wt loss x past 3-4 months and PO meeting less than 50% estimated nutrition needs x 6 months Status Active Problem Recommendation Dietitian Recommendations/Changes Continue clear liquid diet and advance diet as tolerated to Transitional with goal of Regular diet. Will add 240 ml ensure clear TID w/ meals. Adjust ONS as diet advanced from clear liquids. Weight / BMI Weight Weight: 128 lb 0.006 oz Body Mass Index (BMI) 19.4 ABG / Lab / Microbiology Data Result Diagrams: 03/18/22 05:52 03/18/22 05:52 Laboratory: Laboratory Results - last 24 hr 03/18/22 05:52: WBC 7.6, RBC 3.55 L, Hgb 11.1 L, Hct 33.8 L, MCV 95.2 H, MCH 31.3, MCHC 32.8, RDW Std Deviation 48.1 H, RDW Coeff of Loc 13.6, Plt Count 295, MPV 9.5, Immature Gran % (Auto) 0.400, Neut % (Auto) 58.4, Lymph % (Auto) 30.3, Cavalier % (Auto) 5.2, Eos % (Auto) 5.2 H, Baso % (Auto) 0.5, Absolute Neuts (auto) 4.4, Absolute Lymphs (auto) 2.29, Nucleated RBC % 0 03/18/22 05:52: Sodium 140, Potassium 4.3, Chloride 106, Carbon Dioxide 30.0, Anion Gap 4 L, BUN 22 H, Creatinine 0.85, Estim Creat Clear Calc 73.05, Est GFR (MDRD) Af Amer 117, Est GFR (MDRD) Non-Af 96, BUN/Creatinine Ratio 25.8 H, Glucose 95, Calcium 9.0 D/C Instructions Discharge Diet: Soft diet (Continue soft diet until follow-up) and - (Examples of diet are mashed potatoes, applesauce, yogurt, soups, etc.) Ice area for (Minutes): 20 Call your doctor if your incision/area has: Continuous Slow Oozing, Sudden Increased Bleeding, Increased Pain/ Swelling, Increased Redness, Foul Smelling Discharge and Swelling at the incision site Call your doctor if you observe: Fever of 101 or Higher Suture Line Care: Avoid Pulling/Pushing and Avoid Pinching/Bending Cleanse incision/area with: Soap & Water Please Follow Up With: Cezar Gonzáles MD When: 1 week. Please call our office. Meaningful Use Info Meaningful Use Diagnoses (Choose all that apply): None applicable Discharge Plan Admission Admit Date/Time: 03/16/22 05:21 Primary Reason for Your Visit: Sigmoid diverticulitis Attending Provider: Cezar Gonzáles Primary Care Provider: Yuri Romano Chi Instructions Additional Instructions / Restrictions: You may take Tylenol every 6 hours as needed for pain. You have been given a small course of narcotic pain medication as needed. You may also try Motrin between taking Tylenol. Recommend no lifting greater than 15 pounds for 4 weeks You may shower starting today Continue on a soft food diet until your follow-up with Dr. Gonzáles in 1 week You will need to contact our office to schedule a 1 week follow-up with Dr. Gnozáles Please refrain from any excessive machine work or heavy lifting Recommend refraining from smoking until completely healed. Contact our office if an concerns or questions prior to your office visit. Discharge Orders/Prescriptions Prescriptions: New acetaminophen 500 mg Tablet 1,000 mg PO Q6H Qty: 0 0RF oxycodone 5 mg Tablet 5 mg PO Q6H PRN PRN (Reason: Pain Score 6-10) 3 Days Qty: 9 0RF Continued tamsulosin 0.4 mg capsule 0.4 cap PO DAILY Probiotic 100 billion cell Capsule 1 cap PO DAILY cyanocobalamin (vitamin B-12) [Vitamin B-12] 250 mcg Tablet 500 mcg PO QODAY Discontinued metronidazole 500 mg tablet 500 mg PO DIRECTED Rx Instructions: Take 2 tablets at 1:00, 3:00, and 11:00 neomycin 500 mg tablet 500 mg PO DIRECTED Rx Instructions: Take 2 tablets at 1:00, 3:00, and 11:00 Referrals / Follow Up: Cezar Gonzáles MD [Med Staff - Active Staff] - (Please call our office for a 1 week follow-up with Dr. Gonzáles) Yuri Romano Chi, MD [Primary Care Provider] - Disposition Disposition (needs filled in before D/C Order can be placed): Home, Self Care Charges/Coding Visit Charges Inpatient E&M: 05090 Disch Hosp (No charge; post-op)
--- NOTE | 2022-03-20 08:32 | CON.PCM.UR_ITS ---
HPI Consult Data Date of Consult: 03/20/22 HPI Narrative HPI Narrative: LUIS HERRMANN, is a 61 M who presents for resection of sigmoid diverticulitis the surgeon has requested that I place a stent on the left side to assist with the procedure. [facility] Medical History (Updated 03/10/22 @ 14:55 by Kelle Pritchard) Acid reflux Anxiety Chronic cough Colitis COPD (chronic obstructive pulmonary disease) Depression Diverticulitis of large intestine with complication Easy bruising Emphysema (subcutaneous) (surgical) resulting from a procedure Emphysema, unspecified Hemorrhoids History of diverticulitis HTN (hypertension) Loose, teeth Low iron Marijuana use Migraines Prostate disease Shortness of breath on exertion Smoker Wears glasses Home Medications tamsulosin 0.4 mg capsule 0.4 cap PO DAILY Check with primary doctor 03/31/21 [History Last Taken 03/15/22] Lactobacillus 40-Bifidobact 3-S.thermophilus 100 billion cell capsule (Probiotic) 1 cap PO DAILY probiotic 02/23/22 [History Last Taken 03/12/22] cyanocobalamin (vitamin B-12) 250 mcg tablet (Vitamin B-12) 500 mcg PO QODAY supplement 03/10/22 [History Last Taken 03/13/22] acetaminophen 500 mg tablet 1,000 mg PO Q6H #0 tabs 03/18/22 [Rx Last Taken Unknown] oxycodone 5 mg tablet 5 mg PO Q6H PRN PRN Pain Score 6-10 3 days #9 tabs 03/18/22 [Rx Last Taken Unknown] Allergy/AdvReac Type Severity Reaction Status Date / Time No Known Allergies Allergy Verified 03/16/22 06:02 Family History Uncle Colon cancer x 3 Father Heart disease Surgical History (Updated 03/17/22 @ 08:[address] Cezar Gonzáles MD) History of appendectomy History of colonoscopy History of esophagogastroduodenoscopy (EGD) History of urologic surgery S/P appendectomy S/P inguinal hernia repair Social History Smoking Status: Current every day smoker tobacco type: cigarettes alcohol intake: never Lab / Micro Data Result Diagrams: 03/18/22 05:52 03/18/22 05:52
== END 2022-03-18 13:17 | disposition home or self-care (01) | DRG 330 ==
LOC: ACINP 05:22 → MS3 03-17 06:50
PROVIDERS: Anesthesiology; Physician Assistant; Admitting Provider Surgery; PCP Family Medicine Geriatric Medicine; Referring Provider Surgery; Visit Provider Surgery
PROC: 0DTN0ZZ Resection of Sigmoid Colon, Open Approach (ICD-10-PCS; CPT 44204; principal; 2022-03-16 07:05)
DX: K57.32 Diverticulitis of large intestine without perforation or abscess without bleeding (principal); E44.0 Moderate protein-calorie malnutrition; J95.812 Postprocedural air leak; Z68.1 Body mass index [BMI] 19.9 or less, adult; J44.9 Chronic obstructive pulmonary disease, unspecified; F17.210 Nicotine dependence, cigarettes, uncomplicated; K57.30 Diverticulosis of large intestine without perforation or abscess without bleeding; I10 Essential (primary) hypertension; Z80.0 Family history of malignant neoplasm of digestive organs; Y82.9 Unspecified medical devices associated with adverse incidents
CPT/HCPCS: 36415; 80048; 80076; 82962; 83735; 85025; 85027; 85610; 85730; 88304; 88307; 93005; 97802; 99251; 99406; J7120; A4216; C1769; G0463; J1940; J2405; J3475; J3490

== ENCOUNTER → 2022-04-01 | Outpatient (CLI) | payer OTHER, MEDICAID, SELFPAY ==
[2022-04-01 12:21] LABS: Absolute Lymphocyte Count 2.32 X10^3/uL (0.83-4.51); Absolute Neutrophil Count 2.3 X10^3/uL (2.0-7.7); Basophil# 0.09 X10^3/uL; Basophil% 1.5 % (0-1); Eosinophil# 0.81 X10^3/uL; Eosinophils% 13.8 % (0-5); Hematocrit 42.4 % (40-54); Hemoglobin 13.6 g/dL (13.0-16.5); Lymphocyte # 2.32 X10^3/ul (0.83-4.51); Lymphocyte % 39.5 % (19-41); Mean Corp Hgb Conc 32.1 g/dL (32-36); Mean Corpuscular Hgb 30.9 pg (27.0-32.0); Mean Corpuscular Volume 96.4 fL (80-94); Mean Platelet Vol. 9.8 fl (6.2-12.0); Monocyte# 0.37 X10^3/uL; Monocyte% 6.3 % (0-10); NRBC Flagged by Analyzer 0 % (0-5); Neutrophil # 2.27 X10^3/uL (2.7-7.7); Neutrophil % 38.7 % (47-70); Platelet Count 441 K/mm3 (150-450); RBC Distribution Width CV 13.4 % (11.6-14.6); RBC Distribution Width SD 47.8 fl (35.1-43.9); White Blood Count 5.9 K/mm3 (4.4-11.0)
[2022-04-01 12:59] LABS: ALB/GLOB Ratio 0.8 RATIO (0.9-2.4); AST(SGOT) 17 U/L (15-37); Alanine Aminotransfer ALT/SGPT 19 U/L (16-61); Albumin, Serum 3.3 g/dL (3.2-5.0); Alkaline Phosphatase 92 U/L (45-117); Anion Gap 4 (5-15); BUN 24 mg/dL (7-18); BUN/Creat Ratio 27.8 RATIO (10-20); Calcium,Total 9.6 mg/dL (8.5-10.1); Chloride 108 mmol/L (98-107); Creatinine, Serum 0.86 mg/dL (0.70-1.30); EST Glomerular Filtration Rate 95 mL/min (>60); Est Glom Filt Rate - Afr Amer 115 mL/min (>60); Globulin 4.4 g/dL (2.2-4.2); Glucose 97 mg/dL (74-106); PSA,Total - Annual Screen 1.28 ng/mL (0.00-4.00); Potassium 4.3 mmol/L (3.5-5.1); Protein, Total 7.7 g/dL (6.4-8.2); Sodium Level 141 mmol/L (136-145); Thyroid Stim Hormone (TSH) 0.93 uIU/mL (0.358-3.74)
== END | disposition home or self-care (01) ==
LOC: LAB.FUTURE 09:03 → POLAB3 09:11
PROVIDERS: PCP Family Medicine Geriatric Medicine; Visit Provider Family Medicine Geriatric Medicine
DX: I10 Essential (primary) hypertension (principal); Z12.5 Encounter for screening for malignant neoplasm of prostate
CPT/HCPCS: 36415; 80053; 84153; 84443; 85025; G0103

== ENCOUNTER → 2022-07-07 | Outpatient (CLI) | payer OTHER, MEDICAID, SELFPAY ==
[2022-07-08 14:12] LABS: M R Staph aureus DNA By PCR POSITIVE (Negative); Probe Check PASS; Staph aureus DNA By PCR POSITIVE (Negative)
== END | disposition home or self-care (01) ==
LOC: POLAB3 16:23
PROVIDERS: PCP Family Medicine Geriatric Medicine; Visit Provider Family Medicine Geriatric Medicine
DX: S51.802A Unspecified open wound of left forearm, initial encounter (principal)
CPT/HCPCS: 87070; 87075; 87077; 87186; 87205; 87640

== ENCOUNTER → 2022-08-18 | Outpatient (CLI) | payer OTHER, MEDICAID, SELFPAY ==
[2022-08-18 17:23] LABS: Absolute Lymphocyte Count 2.28 X10^3/uL (0.83-4.51); Absolute Neutrophil Count 3.1 X10^3/uL (2.0-7.7); Basophil# 0.09 X10^3/uL; Basophil% 1.5 % (0-1); Eosinophil# 0.29 X10^3/uL; Eosinophils% 4.8 % (0-5); Hematocrit 43.2 % (40-54); Hemoglobin 14.2 g/dL (13.0-16.5); Lymphocyte # 2.28 X10^3/ul (0.83-4.51); Lymphocyte % 37.4 % (19-41); Mean Corp Hgb Conc 32.9 g/dL (32-36); Mean Corpuscular Hgb 30.9 pg (27.0-32.0); Mean Corpuscular Volume 94.1 fL (80-94); Mean Platelet Vol. 9.8 fl (6.2-12.0); Monocyte# 0.35 X10^3/uL; Monocyte% 5.7 % (0-10); NRBC Flagged by Analyzer 0 % (0-5); Neutrophil # 3.07 X10^3/uL (2.7-7.7); Neutrophil % 50.4 % (47-70); Platelet Count 314 K/mm3 (150-450); RBC Distribution Width CV 12.6 % (11.6-14.6); RBC Distribution Width SD 43.3 fl (35.1-43.9); Red Blood Count 4.59 M/mm3 (4.6-6.2); White Blood Count 6.1 K/mm3 (4.4-11.0)
[2022-08-18 17:50] LABS: Anion Gap 3 (5-15); BUN 18 mg/dL (7-18); BUN/Creat Ratio 18.8 RATIO (10-20); Calcium,Total 9.5 mg/dL (8.5-10.1); Chloride 105 mmol/L (98-107); Creatinine, Serum 0.96 mg/dL (0.70-1.30); EST Glomerular Filtration Rate 84 mL/min (>60); Est Glom Filt Rate - Afr Amer 102 mL/min (>60); Glucose 95 mg/dL (74-106); Potassium 4.1 mmol/L (3.5-5.1); Sodium Level 139 mmol/L (136-145)
== END | disposition home or self-care (01) ==
LOC: POLAB3 15:40
PROVIDERS: PCP Family Medicine Geriatric Medicine; Visit Provider Family Medicine Geriatric Medicine
DX: I10 Essential (primary) hypertension (principal)
CPT/HCPCS: 36415; 80048; 84443; 85025

== ENCOUNTER → 2022-09-22 | Outpatient (CLI) | payer OTHER, MEDICAID, SELFPAY ==
--- NOTE | 2022-09-22 12:51 | CT_ITS ---
STUDY: CT ABDOMEN AND PELVIS WITH CONTRAST REASON FOR EXAM: Male, 62 years old. Question right inguinal hernia. History of part OD: Removed for diverticulitis. RADIATION DOSAGE (If Supplied By Facility): CTDIvol = ( 11.95 ) mGy, DLP = ( 337.56 ) mGycm TECHNIQUE: Transaxial images were obtained from the dome of the diaphragm to the symphysis pubis with Redicat oral contrast. IV 100mL Isovue-300 was administered. Sagittal and coronal images were reconstructed. Individualized dose optimization techniques were used for this CT. COMPARISON: January 11, 2022 and February 05, 2022. FINDINGS: There is a granuloma within the left lower lobe. The visualized portions of the heart are within normal limits. Normal liver. Normal gallbladder and extrahepatic biliary system. Normal spleen. Normal pancreas. Normal bilateral adrenal glands. There are bilateral nonobstructing calculi measuring up to 6 mm on the right and 3 mm on the left. There is a left renal cyst. Normal visualized stomach. Normal small intestine. There are scattered diverticula arising from the colon. The patient is status post appendectomy. There is scattered atherosclerotic calcification of the abdominal aorta, without a demonstrated aneurysm. Normal inferior vena cava. Normal retroperitoneum. Normal urinary bladder. Metallic radiation seeds are seen within the prostate. There is a small right inguinal hernia. There are mild degenerative changes of the visualized lumbar spine. CT/Abdomen/Pelvis WITH Contrast IMPRESSION: Small right inguinal hernia. Bilateral nonobstructing renal calculi measuring up to 6 mm on the right. Atherosclerosis. Electronically Signed: Anuja Ann MD at 9:30 EDT ,
[2022-09-22 13:31] LABS: CREATININE FINGERSTICK 0.9 mg/dL (0.70-1.30); EGFR FINGERSTICK > 60.0000 mL/min (>60)
== END | disposition home or self-care (01) ==
LOC: CT 12:50
PROVIDERS: PCP Family Medicine Geriatric Medicine; Referring Provider Surgery; Visit Provider Surgery
DX: K40.90 Unilateral inguinal hernia, without obstruction or gangrene, not specified as recurrent (principal)
CPT/HCPCS: 74177; Q9967

== ENCOUNTER → 2023-01-05 | Outpatient (CLI) | payer OTHER, MEDICAID, SELFPAY | END | disposition home or self-care (01) | LOC: LABSPEC 10:40 | PROVIDERS: PCP Family Medicine Geriatric Medicine; Referring Provider Surgery; Visit Provider Surgery | DX: Z22.322 Carrier or suspected carrier of Methicillin resistant Staphylococcus aureus (principal) | CPT/HCPCS: 87081 ==

== ENCOUNTER 2023-01-24 05:46 | Day surgery (SDC) | payer OTHER, MEDICAID, SELFPAY ==
[2023-01-18 16:23] LABS: Hemoglobin 13.5 g/dL (13.0-16.5); Mean Corp Hgb Conc 31.4 g/dL (32-36); Mean Corpuscular Hgb 30.1 pg (27.0-32.0); Mean Platelet Vol. 9.3 fl (6.2-12.0); Platelet Count 326 K/mm3 (150-450); RBC Distribution Width SD 45.9 fl (35.1-43.9); Red Blood Count 4.48 M/mm3 (4.6-6.2); White Blood Count 6.4 K/mm3 (4.4-11.0)
[2023-01-18 16:26] LABS: International Normalized Ratio 0.9
[2023-01-18 16:27] LABS: Partial Thromboplast Time 29.4 Seconds (24.1-36.2)
[2023-01-18 16:40] LABS: AST(SGOT) 18 U/L (15-37); Alanine Aminotransfer ALT/SGPT 21 U/L (16-61); Albumin, Serum 3.3 g/dL (3.2-5.0); Alkaline Phosphatase 91 U/L (45-117); Bilirubin, Direct 0.08 mg/dL (0.00-0.30); Globulin 3.6 g/dL (2.2-4.2); Protein, Total 6.9 g/dL (6.4-8.2)
[2023-01-24] VITALS (7 sets, daily range): BP systolic 117–143; BP diastolic 75–92; PULSE 64–100; RESP 16–17; TEMP 36.4–37.2; O2SAT 96–100; BMI 21.2
[2023-01-24] MEDS: Lactated Ringers 1,000 ML 15 ML IV ×2 (06:35→09:01)
--- NOTE | 2023-01-24 07:24 | PCM.HP.BLA ---
History and Physical Date of Admission: 01/24/23 Date of Service: 12/23/22 MR#: [id number] Acct: [id number] Name: LUIS HERRMNAN Rep #: [id number] : 1960 Provider: Dr. 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 Is patient in pain?: No Allergies No Known Allergies Allergy (Verified 12/23/22 09:51) Medications tamsulosin 0.4 mg capsule 0.4 cap PO DAILY Check with primary doctor 03/31/21 [History Confirmed 12/23/22] Lactobacillus 40-Bifidobact 3-S.thermophilus 100 billion cell capsule (Probiotic) 1 cap PO DAILY probiotic 02/23/22 [History Confirmed 12/23/22] PFSH Medical History Acid reflux Anxiety Chronic cough Colitis COPD (chronic obstructive pulmonary disease) Depression Diverticulitis of large intestine with complication Easy bruising Emphysema (subcutaneous) (surgical) resulting from a procedure Emphysema, unspecified Hemorrhoids History of diverticulitis HTN (hypertension) Loose, teeth Low iron Marijuana use Migraines Prostate disease Shortness of breath on exertion Smoker Wears glasses Surgical History History of appendectomy History of colectomy History of colonoscopy History of esophagogastroduodenoscopy (EGD) History of urologic surgery S/P appendectomy S/P inguinal hernia repair Status post laparoscopic-assisted sigmoidectomy Family History Uncle Colon cancer x 3Father Heart disease Social History Smoking Status: Current every day smoker tobacco type: cigarettes alcohol intake: never HPI HPI HPI: This is a 62-year-old male who is well-known to me for history of hemorrhoids and complicated diverticulitis now status post hand-assisted laparoscopic sigmoid colectomy on 03/16/2022 and is evaluated for recurrent right inguinal hernia.? His prior visit was 10/21/2022. He actually had an interval visit that was canceled on the account of presenting with poison Quincy skin eruptions. Today he states that he is concerned about some new swelling and pain on his right side and to a lesser degree on his left side. 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 He confirms that he has remained free of tobacco smoking for over a month now. Below is recapitulated from patient's prior visit October: He reports today with his girlfriend. He states that there is a mixup with the appointment scheduled that he was given and this is why he missed his last visit last month. He happily reports that he has not had any hemorrhoid trouble and specifically denies any bulging, pain, bleeding, or itching. He also reports that he is not doing anything necessarily for these hemorrhoids. Regarding his hernia, he reports that it seems bigger but denies any pain. He states that there is some mild discomfort occasionally when coughing or sneezing. Lastly he reports that he is 5 days off of tobacco. He wishes to have his hernia addressed and is ideally thinking sometime this summer. 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 Exam Const General: cooperative Orientation: alert, awake and oriented x3 Resp Effort & Inspection: normal respiratory effort GI Other: Well-healed midline (infraumbilical) incision. Well-healed port site. No evidence of incisional herniation. Slight soft tissue swelling of the right groin. Faint transverse incision over right groin Other: Bilateral testicles are descended. Tenderness with exam?prominently on the right. Palpable bulge consistent with direct hernia defect on the right. Subtle bulge on the left potentially also representing a direct hernia here. Assessment and Plan Assessment and Plan (1) Right inguinal hernia: Status: Acute Comment: Is a 62-year-old male with probable recurrent right inguinal hernia although we have been unable to obtain primary operative records. This is confirmed with CT imaging. Patient complaining of more pain and swelling today. He finds any symptoms actually present on both sides. With exam I believe I do detect a subtle direct defect on the left. Fortunately he has cleared both his pleasant Quincy dermatitis and remained free of tobacco for over a month. With these clinical updates, I believe we are now ready to schedule elective right, possible bilateral inguinal hernia repair with mesh. Given his prior open repair on the right I would like to proceed with a robot-assisted minimally invasive approach. Patient has no foreseeable schedule conflicts and is reminded that we will have to abstain from any lifting greater than 10 pounds in the postoperative phase. He readily accepts these restrictions. Plan: ? To be scheduled for elective right possible bilateral robot-assisted inguinal hernia repair with mesh. Procedure to be done as an outpatient. Anticipation of this procedure patient's asked micro is reviewed and he does have a history of MRSA. He will require swallowing and may require eradication measures before mesh placement. I have examined the patient and the H&P has been reviewed. There are no clinical changes since date of exam. Patient states that he has felt some more tenderness in his right groin particularly after colitis. He also confirms that he remains tobacco free. Procedure and post procedure expectations were reviewed and patient denies any further questions. Consents were confirmed. Therefore we will proceed to the operating room for planned right (possible bilateral) robot-assisted inguinal hernia repair with mesh.
[2023-01-24] MEDS: Cefazolin 2 GM in 0.9% Normal Saline 100 ML IV (07:30)
[2023-01-24] MEDS: Bupivacaine Mpf 0.5% 30 ML VIAL (10:26)
--- NOTE | 2023-01-24 10:27 | PCM.OPRPT ---
Report of Operation Date of Procedure: 01/24/23 Pre-Operative Diagnosis: Right inguinal hernia Post-Operative Diagnosis: Right indirect inguinal hernia with associated cord lipoma Surgery/Procedure Performed:: Robot-assisted right inguinal hernia repair with mesh Surgeon: Cezar Gonzáles splitting machine feeder: Leeanne Viera Type of Anesthesia: General/Supplemental Anesthesiologist: Rolo Melendez Drains: NA Estimated Blood Loss (mL): 5 Description of Procedure: After appropriate identification the preoperative holding area the patient was brought to the operating room where he was positioned supine on the operating table. Preoperative antibiotics were completed and the patient was administered a general anesthetic. Patient's abdomen was then prepped and draped in usual sterile fashion. Formal timeout followed to confirm patient and procedure. Procedure was begun with an optical entry facilitated by Veress insufflation at Funes's point. Once pneumoperitoneum reached a set point pressure of 12 mmHg a right paramedian incision was made and a 8 mm robotic trocar was placed with a careful Optiview technique. Follow-up laparoscopic investigation revealed no inadvertent injury to the viscera below. A second port was placed a hand's breath right of this index port under laparoscopic visualization. Then the Veress needle was withdrawn and a third and final robotic port was placed through this site. Patient was positioned in slight Trendelenburg and I performed a local block of the ilioinguinal nerve using local anesthetic under laparoscopic visualization. The robot was docked in standard fashion. In this positioning I could visualize a indirect abdominal wall defect. Robotically, a peritoneal flap was created on the right extending from the medial umbilical ligament to the level of the ASIS (external) and was bluntly dissected to expose the medial parietal compartment and lateral visceral compartments. Medially I could see what appeared to represent a narayan mortis vessel extending from the iliac vein, medially across the pubic bone as well as inferiorly. I dissected bluntly more medially directly posterior to the rectus and on top of the pubic tubercle to try to create a little separation to this vessel, however, there were several small anastomotic branches making their way to the rectus anteriorly and I elected to divide the most medial terminus so that it could sweep away from the posterior aspect of the pubic bone. This was done with bipolar energy. Once complete I was able to visualize the pubic tubercle and Keith's ligament while laterally I extended the dissection down to the level of the psoas muscle. The hernia sac was identified and from the cord structures deeply with selective use of monopolar energy. A medium size cord lipoma was identified and removed with gentle traction, blunt dissection, and bipolar energy applied across its distal tip. With this transected I visualized some additional preperitoneal fat medial to the vas deferens and the iliac vein, but I was ultimately able to separate this fat from the other structures via an areolar plane. There was no evidence of either a direct or obturator defect. The peritoneal flap was inspected to ensure that cord was appropriately parietalized and there was no pulling of the cord structures or the viscera deeply over the psoas using the pull test. Of note, the left side showed evidence of a prior mesh repair in good condition. Once satisfied with the right-sided dissection, a Bard 3D max, size large, mid weight mesh was placed into the abdomen along with suture. It was positioned within the preperitoneal pocket so that there was good medial and inferior overlap. It was then tacked to the admuniculum of the linea alba just superior to the pubic tubercle and laterally in a partial-thickness bite of the abdominal wall using a 3-0 Vicryl suture. The peritoneal flap was then closed with a running 3-0 V-Loc suture taking care to conceal the barbs of the suture beneath the peritoneum. There were no peritoneal rents. With the peritoneal pockets closed, sutures were systematically removed from the peritoneum and the pneumoperitoneum was evacuated before removing the trocars. The port sites were closed at the skin with running 4-0 Monocryl in a subcuticular fashion. Steri-Strips and OpSite's were used as dressings. Patient's testicles were returned to the scrotum and a supportive jockstrap was fitted. Patient was then awoken from anesthetic and transferred to PACU for ongoing recovery. Grafts/Implants Used: 3D max MID anatomic mesh Lot:[id number], ref:[id number] Complications None Admit VTE Documentation VTE Present on Admission: No VTE Mechan Device Prophylaxis: SCD's Procedures Digestive 40xxx-49xxx: [id number] Lap ing hernia repair init
--- NOTE | 2023-01-24 10:30 | DCINST_ITS ---
Discharge Instructions Diet Discharge Diet: No restrictions Activity Discharge Activity: May Not Drive (While taking narcotic pain medication) and May Shower May shower in (days): 2 Ice area for (Minutes): 20 Lifting Restrictions: No lifting greater than 10 pounds for the next 5 weeks Dressing / Incision Call your doctor if your incision/area has: Continuous Slow Oozing, Increased Pain/ Swelling, Increased Redness, Foul Smelling Discharge and Swelling at the incision site Call your doctor if you observe: Fever of 101 or Higher, Inability to urinate and Inability to have a bowel movement Change Dressing in: 2 days (Please leave Steri-Strips intact until they fall off spontaneously or are taken off at your follow-up visit) Remove Dressing in: 2 days Cleanse incision/area with: Soap & Water and Keep Dressing Clean & Dry Follow Up Care Please Follow Up With: Cezar Gonzáles MD When: 1 week postop Test Results: Test results from this visit will be discussed in further detail at your follow- up appointment, if applicable. Discharge Plan Admission Primary Reason for Your Visit: Inguinal hernia repair Attending Provider: Cezar Gonzáles Primary Care Provider: Yuri Romano Chi Discharge Orders/Prescriptions Prescriptions: New oxycodone 5 mg tablet 5 mg PO Q6H PRN (Reason: pain) 3 Days Qty: 14 0RF No Action tamsulosin 0.4 mg capsule 0.4 cap PO QHS multivitamin [Daily Vitamin Formula] Tablet 1 tab PO DAILY Excedrin Migraine 250-250-65 mg tablet 1 tab PO Q6H PRN (Reason: migraine headache) Referrals / Follow Up: Yuri Romano Chi, MD [Primary Care Provider] - Disposition Disposition (needs filled in before D/C Order can be placed): Home, Self Care
== END 2023-01-24 13:00 | disposition home or self-care (01) ==
LOC: SDC 05:50 → AC 05:58
PROVIDERS: Anesthesiology; PCP Family Medicine Geriatric Medicine; Referring Provider Surgery; Visit Provider Surgery
PROC: (CPT 49650; principal; 2023-01-24 07:10)
DX: K40.90 Unilateral inguinal hernia, without obstruction or gangrene, not specified as recurrent (principal); J44.9 Chronic obstructive pulmonary disease, unspecified; Z80.0 Family history of malignant neoplasm of digestive organs; K64.9 Unspecified hemorrhoids; I10 Essential (primary) hypertension; F17.210 Nicotine dependence, cigarettes, uncomplicated; D17.6 Benign lipomatous neoplasm of spermatic cord
CPT/HCPCS: 49650; 00840; S2900; 36415; 80076; 85027; 85610; 85730; J7120; J2405

== ENCOUNTER → 2023-06-30 | Outpatient (CLI) | payer MEDICARE, OTHER, MEDICAID, SELFPAY ==
--- OUTSIDE RECORDS SUMMARY | 2023-06-30 15:40 | XMS RPT_ITS | CCD ---
Author Name Unknown Address [address] [place] [address] Organization [facility] Care Team Providers Care Engineering Technology Instructor Name Role Phone VANE CRUZ Unavailable Unavailable VANE CRUZ Unavailable Unavailable TIFFANY OLSEN Unavailable Unavailable IAN MCKEON Attending Unavailable IAN MCKEON Admitting Unavailable IAN MCKEON Primary Care Unavailable TRENT SAMUEL Admitting Unavailable TRENT SAMUEL Primary Care Unavailable TRENT SAMUEL Attending Unavailable XOCHILT GUAJARDO MD Consulting Unavailable XOCHILT GUAJARDO MD Referring Unavailable PROVIDER, UNKNOWN Consulting Unavailable PROVIDER, UNKNOWN Consulting Unavailable ALMA LARSEN MD Admitting Unavailable ALMA LARSEN MD Primary Care Unavailable ALMA LARSEN MD Attending Unavailable DONNA BELL MD Admitting Unavailable DONNA BELL MD Primary Care Unavailable DONNA BELL MD Attending Unavailable Gloria uGajardo MD Primary Care Provider HANNA MILIAN Admitting Unavailable DARIN MARROQUIN Attending Unavailable GLORIA GUAJARDO Primary Care Unavailable Medications Current Medications Medication Drug Class(es) Dates Sig (Normalized) Sig (Original) clopidogrel 75 mg oral tablet (4 sources) P2Y12 Platelet Inhibitor Start: 06-27-2023 End: 06-27-2024 take 1 tablet by mouth once daily clopidogrel (Plavix) 75 MG tablet Take 1 tablet (75 mg) by mouth daily. 30 tablet 3 06/28/2023 06/27/2024 Active multivitamin (Theragran) tablet (2 sources) Start: 06-27-2023 End: 06-26-2024 take 1 tablet by mouth once daily multivitamin (Theragran) tablet Take 1 tablet by mouth daily. 30 tablet 11 06/27/2023 06/26/2024 Active rosuvastatin calcium 20 mg oral tablet (4 sources) HMG-CoA Reductase Inhibitor Start: 06-26-2023 End: 06-27-2024 take 1 tablet by mouth once daily rosuvastatin (Crestor) 20 MG tablet Take 1 tablet (20 mg) by mouth daily. 30 tablet 3 06/28/2023 06/27/2024 Active tamsulosin hydrochloride 0.4 mg oral capsule (4 sources) alpha-Adrenergic Elza Start: 06-28-2023 take 1 capsule by mouth once daily tamsulosin (Flomax) 0.4 MG 24 hr capsule Take 1 capsule (0.4 mg) by mouth daily. 30 capsule 0 06/28/2023 Active Completed/Discontinued Medications Medication Drug Class(es) Dates Sig (Normalized) Sig (Original) Acetaminophen (2 sources) Start: 06-26-2023 End: 06-27-2023 take 1 tablet by mouth every six hours as needed for pain and fever acetaminophen (Tylenol) tablet 650 mg aspirin 81 mg delayed release oral tablet (2 sources) Platelet Aggregation Inhibitor, Nonsteroidal Anti-inflammatory Drug Start: 06-27-2023 End: 06-27-2023 aspirin EC tablet 81 mg cholecalciferol 9.52 unt/ml / glucose 357 mg/ml oral gel (2 sources) Vitamin D Start: 06-26-2023 End: 06-27-2023 glucose oral gel 15 g 1 ml dexamethasone phosphate 4 mg/ml injection (2 sources) Corticosteroid Start: 06-26-2023 End: 06-26-2023 dexAMETHasone (Decadron) injection 4 mg 0.4 ml enoxaparin sodium 100 mg/ml prefilled syringe (2 sources) Low Molecular Weight Heparin Start: 06-27-2023 End: 06-27-2023 enoxaparin (Lovenox) syringe 40 mg glucagon (rdna) 1 mg injection (2 sources) Antihypoglycemic Agent Start: 06-26-2023 End: 06-27-2023 glucagon (human recombinant) injection 1 mg 150 ml glucose 50 mg/ml injection (4 sources) Start: 06-26-2023 End: 06-27-2023 dextrose 50 % solution 12.5 g Problems Active Problems Problem Classification Problem Date Documented Date Episodic/Chronic Acute cerebrovascular disease (8 sources) Cerebrovascular accident; Translations: [Cerebral infarction, unspecified] Onset: 06-26-2023 06-26-2023 Chronic Essential hypertension (1 source) Essential (primary) hypertension; Translations: [Essential (primary) hypertension] Onset: 04-13-2023 Chronic Gastroduodenal ulcer (2 sources) Gastric ulcer, unspecified as acute or chronic, without hemorrhage or perforation; Translations: [GASTRIC ULCER, UNSP ACUTE OR CHRONIC, W/O HEMOR OR PERF] Onset: 12-28-2016 Chronic Malaise and fatigue (2 sources) Chronic fatigue, unspecified; Translations: [CHRONIC FATIGUE, UNSPECIFIED] Onset: 12-28-2016 Chronic Nutritional deficiencies (1 source) Deficiency of other specified B group vitamins; Translations: [Deficiency of other specified B group vitamins] Onset: 04-13-2023 Episodic Past or Other Problems Problem Classification Problem Date Documented Da te Episodic/Chronic Other non-traumatic joint disorders (2 sources) Pain in unspecified joint; Translations: [PAIN IN UNSPECIFIED JOINT] Onset: 12-28-2016 Episodic Results Test Name Value Interpretation Reference Range Facil ity Vital Signs Date Time Vital Sign Value Performing Clinician Codii lity 06-27-2023 10:52-0500 Heart rate 81 /min Ed Marroquin DO Work Phone: [facility] Encounters Encounter Date Encounter Type Care Provider Facility Start: 06-26-2023 End: 06-27-2023 Evaluation and management of inpatient [facility] Start: 06-26-2023 End: 06-27-2023 Evaluation and management of inpatient Ed Marroquin DO Work Phone: [facility] ICU T2 Procedures Date Procedure Procedure Detail Performing Clinician Start: 06-27-2023 TTE w or wo linden rivero,Marge Chua MD Work Phone: Start: 06-27-2023 Ct head/brain w/o co ntrast material Maksim Garcia MD Work Phone: Start: 06-27-2023 Comprehensive metabo lic panel Davi Chua MD Work Phone: Start: 06-26-2023 Mri brain brain stem w/o contrast material Davi Chua MD Work Phone: Start: 06-26-2023 Assay of troponin quantitative Davi Chua MD Work Phone: Start: 06-26-2023 Assay of troponin quantitative Davi Chua MD Work Phone: Start: 06-26-2023 Comprehensive metabo lic panel Davi Chua MD Work Phone: Start: 06-26-2023 Lipid panel Davi morris MD Work Phone: Start: 06-26-2023 Ecg routine ecg w/le ast 12 lds trcg only w/o i&r Davi Chua MD Work Phone: Start: 06-26-2023 Glucose quantitative blood xcpt reagent strip Ed Marroquin DO Work Phone: Start: 06-26-2023 Lipid 1996 panel - S casey or Plasma Ed Marroquin DO Work Phone: Plan of Treatment Date Care Activity Detail Author Start: 06-26-2028 Lipid panel Lipid Panel [facility] Start: 08-02-2023 End: 08-02-2023 Patient encounter procedure 08/02/2023 1:00 PM EST Office Visit [facility] [address] [place] [id number] Ana Marcus APRN - NOELLE [address] [place] [address] [facility] Start: 02-18-2023 Influenza vaccination Influenza Vaccine (#1) [facility] Start: 2018 RSV Immunization aged 60 or older (1 - 1-dose 60+ series) RSV Immunization aged 60 or older (1 - 1-dose 60+ series) [facility] Start: 2008 Screening for malignant neoplasm of lung Lung Cancer Screening [facility] Start: 2008 Zoster Vaccines (1 of 2) Zoster Vaccines (1 of 2) [facility] Start: 1977 DTaP/Tdap/Td Vaccines (1 - Tdap) DTaP/Tdap/Td Vaccines (1 - Tdap) [facility] Start: 1976 Hepatitis C screening Hepatitis C Screening [facility] Start: 1970 Depression Screening Depression Screening [facility] Start: 1964 Pneumococcal Vaccine: 65+ Years (1 of 2 - PCV) Pneumococcal Vaccine: 65+ Years (1 of 2 - PCV) [facility] Start: 1959 MMR Vaccines (1 of 1 - Standard series) MMR Vaccines (1 of 1 - Standard series) [facility] Start: 1960 COVID-19 Vaccine (#1) COVID-19 Vaccine (#1) [facility] Start: 1960 Annual wellness visit Medicare Initial Physical (IPPE) [facility] Start: 1960 Medicare Advantage Annual Wellness Visit (AWV) Medicare Advantage Annual Wellness Visit (AWV) [facility] Start: 1960 Screening for malignant neoplasm of colon [facility] Payers Date Payer Category Payer Medicare [employer] UHC DUAL COMPLETE [id number] 2023-Present [address] [place] [address] Medicare HMO [id number] 2023 Medicare [id number] 2019 Private Health Insurance [id number] 1960 Unknown [id number] 1960 Unknown [id number] 1960 Unknown [id number] 1960 Unknown [id number] Private Health Insurance [id number] Unknown [id number] Social History Date Type Detail Facility Start: 06-26-2023 Tobacco smoking status NHIS Smokes t obacco daily [facility] History of tobacco use Cigarette Smoker [facility] Start: 06-26-2023 Cigarettes smoked cu rrent (pack per day) - Reported 0.8 [facility] Start: 06-26-2023 Tobacco use and exposure Smoke less tobacco non-user [facility] Start: 06-26-2023 Alcohol intake Defer [facility] Start: 06-26-2023 Humiliation, Afraid, Rape, and Kick questionnaire [HARK] [facility] Within the last year , have you been afraid of your partner or ex-partner? Patient declined [facility] Start: 1960 Sex Assigned At Not on file S [facility] Clinical Notes 07-05-2022 to 06-27-2023 Lila Fernandez, AMANUEL - NOELLE - 06/27/2023 1:07 PM Juan José Sequeira RN - 06/27/2023 1:04 PM Juan José Sequeira RN - 06/27/2023 1:04 PM Emily Sun RN - 06/26/2023 5:45 AM ESTDischarge Instructions Note Date & Type Note Facility 06-27-2023 Note ICU Progress Note an d Discharge Summary Name: Hanna Herrmann : 1960 ADMIT DATE: 06/26/2023 DISCHARGE DATE: 06/27/23 PRIMARYCARE PHYSICIAN: GLORIA GUAJARDO MD VISIT STATUS: Admission CODE STATUS: Full Code EVENTS OF LAST 24 HOURS/CC: Interval Events: NIH returned to 0, no deficits. CT scan reviewed by Neuro Critical Care team this AM Will be ok to send home today C/w Plavix - Discussed modifiable risk factors with patient - smoking cessation, B/p control, diet HOSPITAL COURSE: Hospital Summary: 63 year old male with a past medical history significant for Colitis, diverticulitis - with surgical intervention, COPD / Emphysema, reformed smoker, HTN , Prostate disease (on flomax), Migraines tx with Excedrin. Presents to [facility] with right facial droop, right hemiparesis and dysarthria, given a NIHSS score of 6. Consulted with Neuro Tele, last well known was 2330 on 06/25, was deemed appropriate for TNK, given at approximately 0030 06/26, and transferred to to [facility] for further evaluation. NIHSS improved to 1 on arrival, and then to NIH of 0 by the AM. [address] of the head completed reviewed by Neuro Critical Care. Was started on Asp / Plavix at 24 hours. B/p controlled. PT assessment this AM. NO deficits. Ambulating independently in the room. Deemed ok for DC home. Echo completed VITALS: Vitals: 06/27/23 0857 06/27/23 0900 06/27/23 1000 06/27/23 1052 BP: (!) 146/96 132/79 BP Location: Patient Position: Pulse: 67 64 81 Resp: 17 16 20 Temp: TempSrc: SpO2: 98% 97% 95% Weight: 66.2 kg (146 lb) Height: 1.753 m (5' 9 ) 24HR PULSE OXIMETRY RANGE: SpO2 Av.1 % Min: 94 % Max: 100 % VENTILATOR SETTINGS: 24 hr I/Os: Intake/Output Summary (Last 24 hours) at 06/27/2023 1353 Last data filed at 06/26/2023 1854 Gross per 24 hour Intake 765 ml Output -- Net 765 ml Invasive Lines / Tubes / Drains: PHYSICAL EXAM: Physical Exam Vitals reviewed. HENT: Head: Normocephalic. Nose: Nose normal. Mouth/Throat: Mouth: Mucous membranes are moist. Eyes: Pupils: Pupils are equal, round, and reactive to light. Cardiovascular: Rate and Rhythm: Normal rate. Pulmonary: Effort: Pulmonary effort is normal. Comments: ON room Air Abdominal: General: Abdomen is flat. Bowel sounds are normal. Genitourinary: Penis: Normal. Musculoskeletal: General: Normal range of motion. Cervical back: Normal range of motion. Skin: General: Skin is warm and dry. Neurological: General: No focal deficit present. Mental Status: He is alert. Psychiatric: Mood and Affect: Mood normal. PROCEDURES/SIGNIFICANT DIAGNOSTIC STUDIES: Echo 06/27 Left Ventricle: Left ventricle size is normal. Normal wall thickness. Normal left ventricular systolic function. The EF by visual approximation is 65%. Normal wall motion. Right Ventricle: Right ventricle size is normal. Normal systolic function. Interatrial Septum: No interatrial shunt visualized on color Doppler. Agitated saline study was negative with and without provocation. No significant valvular abnormalities. CT Head 06/27 FINDINGS: Dose reduction was employed with automated exposure control.3 mm unenhanced imaging of the brain performed. Images viewed in multiple orthogonal planes. Acute findings: No convincing acute ischemia or infarct, mass effect or midline shift, or hemorrhage. Bony structures:Unremarkable as seen. Orbits within normal limits, limited lack of contrast. Review of the paranasal sinuses shows no air-fluid levels. IMPRESSION: No acute brain process identified. MRI 06/26 FINDINGS: Ventricles and sulci are prominent, consistent with age-related cerebral volume loss. There is scattered patchy foci of hyperintense signal on T2-weighted imaging and FLAIR within the periventricular and subcortical white matter. Several of these lesions oriented perpendicular to the lateral ventricles. No extra axial collection. No mass or edema. No acute infarction seen on the diffusion sequence. No evidence of hemorrhage on the gradient echo sequence. The intracranial vascular flow voids are normal in appearance. Cerebellar tonsils are in normal location. There is fluid signal within the bilateral mastoid air cells, right greater than left, and left posterior ethmoid air cells. Bone marrow signal is unremarkable. IMPRESSION: 1. No mass, hemorrhage or infarction. 2. Scattered white matter lesions, which are nonspecific, but most commonly seen with changes of chronic small vessel ischemia. Alternatively, several of these lesions could be seen with demyelination. Correlate clinically. CONSULTANTS: Dr. Garcia DIET: Adult diet Regular ACTIVITY: up with assist resume usual as tolerated DISCHARGE DIAGNOSES: Principal Problem: Stroke determined by clinical assessment ([facility]) DISCHARGE MEDICATIONS: Medication List START taking these medications clopidogrel 75 MG tablet Commo (more content not included)... [facility] 06-27-2023 Note PHYSICAL THERAPY [facility] Initial Evaluation Name/MRN: Hanna Herrmann ([id number]) Evaluation Date: 06/27/2023 Date of : 1960 Admission Date: 06/26/2023 3:33 AM Age: 63 y.o. Room/Bed: T2-214/T2-214 A Discharge Recommendation: Home with assist PRN Assessment IMPRESSION: Pt admitted for R hemiparesis, s/p TNK. He is currently Indep for all functional mobility without a device. Pt reported feeling back to his baseline and denied symptoms throughout. Recommend disch to home with assist PRN. No acute PT needs at this time, will sign off. Diagnosis: R hemiparesis, s/p TNK Prognosis: good Performance Deficits /Impairments: N/A Decision Making: Low Complexity Subjective RN OK with Pt to see pt. Pt in bed and agreeable to PT. Pain: Pt denies any current pain. Past Medical History: Past Medical History: Diagnosis Date BPH (benign prostatic hyperplasia) COPD (chronic obstructive pulmonary disease) ([facility]) Emphysema lung (HCC) HTN (hypertension) Past Surgical History: History reviewed. No pertinent surgical history. Admission Diagnosis: Patient Active Problem List Diagnosis Date Noted Stroke determined by clinical assessment ([facility]) 06/26/2023 Medical Precautions: No active isolations Proper PPE donned/doffed in accordance with facility standards. Fall Risk: Salazar Fall Risk Score: 15 (Low Risk) Precautions/Restrictions: N/A Family/Caregiver Present: none Overall Cognitive Status: WNL Overall Orientation Status: Oriented x4 Vision: not assessed this session Hearing: normal Social/Functional History Patient admitted from home. Lives With: Significant Other Type of Home: trailer Home Layout: Single Level Home Home Access: Stairs to Enter with Rails (# of stairs: 4) Homemaking Responsibilities: Independent Receives Help From: None Active Solar Electric/Photovoltaic Installer: Yes Retired Prior Level of Function ADL Assistance: Independent Ambulation Assistance: Independent Transfer Assistance: Independent Objective Lower Extremity Assessment AROM: WNL PROM: Not assessed this session Strength: WNL 5/5 for knee extension, ankle DF, elbow flexion and extension. Good supply technician strength bilat UE's. Bed Mobility: Supine to sit: Independent Sit to supine: Independent Transfers Sit to stand: Independent Stand to sit: Independent Ambulation Ambulation 1 Assistive device(s) used: none Assist level: Independent Distance (ft): 250 ft Quality of gait: No gait deviations, No LOB, denied symptoms all throughout (CEDENO, vision change, CP, dizziness) Balance: Posture: good Sitting - Static: Independent Sitting - Dynamic: Independent Standing - Static: Independent Standing - Dynamic: Independent Stairs Stairs 1 Assistive device(s) used: none Assist level: Independent # of steps: 12 Rails: none Additional factors: reciprocal going up, reciprocal going down Outcome Measures AM-PAC How much HELP from another person do you currently need Turning from your back to your side while in a flat bed without using bedrails?: None Moving from lying on your back to sitting on the side of a flat bed without using bedrails?: None Moving to and from a bed to a chair (including a wheelchair)?: None Standing up from a chair using your arms (wheelchair or bedside chair)?: None Walking in a hospital room?: None Stair climbing assessed?: Yes Climbing 3-5 steps with a railing?+: None AM-PAC Inpatient Mobility Raw Score : 24 AM-PAC Inpatient Mobility Raw Score (No Stairs) : 20 JH-HLM JH-HLM Score: Walked 250 ft or more (i.e. several laps on unit) Plan No skilled acute PT indicated at this time. Please reconsult should changes occur. Safety/Education Safety Safety Devices in place: call light within reach, left in bed, and gait belt Restraints: No Education Education Given To: patient Education Provided: PT Role, PT Goals, Plan of Care, and Discharge Recommendations Education Method: Verbal and Demonstration, BE FAST protocol and to return to the hospital if symptoms arise Barriers to Learning: None Education Outcome: Verbalized Understanding Goals Patient Stated Goal: To return to home indep today Therapy Time Individual Co-treatment Time In 1049 Time Out 1057 Minutes 8 Noemí Carey, PT Patient's Physical Therapy Plan of Care supervision is transferred to a [facility] Services Physical Therapist. Goals and/or treatment plan was established in collaboration with patient/family/other representatives. [facility] 06-27-2023 Note Care Management Prog ress Note Chart reviewed. Discharge order noted. Spoke with patient at bedside. Introduced myself and my role as TCC. Patient denies any questions/concerns about being discharged at this time. Patient has transportation home. Will continue to follow. Discharge Milestones and Delays Expected Date/Time: 06/27/2023 Afternoon Disposition: Home or Self Care Transport status: No current request Discharge Milestones Place discharge order Complete med reconciliation Case mgmt discharge readiness Clinical Stability Diagnsotic Workup Expected Discharge History Expected Date/Time Set By Reviewed At 06/27/2023 Afternoon AMANUEL Valdovinos CNP 06/27/2023 12:27 PM 07/04/2023 Afternoon AMANUEL Valdovinos CNP 06/27/2023 12:24 PM 07/04/2023 Josephine Billings RN 06/27/2023 7:31 AM 06/28/2023 Davi Chua MD 06/26/2023 4:31 AM 06/28/2023 Davi Chua MD 06/26/2023 3:48 AM Length of Stay (Days): 1 GMLOS: No GMLOS Documented [facility] 06-27-2023 Hospital course Narrative ICU Progress Note and Discharge Summary Name: Hanna Herrmann : 1960 ADMIT DATE: 06/26/2023 DISCHARGE DATE: 06/27/23 PRIMARYCARE PHYSICIAN: GLORIA GUAJARDO MD VISIT STATUS: Admission CODE STATUS: Full Code EVENTS OF LAST 24 HOURS/CC: Interval Events: NIH returned to 0, no deficits. CT scan reviewed by Neuro Critical Care team this AM Will be ok to send home today C/w Plavix - Discussed modifiable risk factors with patient - smoking cessation, B/p control, diet HOSPITAL COURSE: Hospital Summary: 63 year old male with a past medical history significant for Colitis, diverticulitis - with surgical intervention, COPD / Emphysema, reformed smoker, HTN , Prostate disease (on flomax), Migraines tx with Excedrin. Presents to [facility] with right facial droop, right hemiparesis and dysarthria, given a NIHSS score of 6. Consulted with Neuro Tele, last well known was 2330 on 06/25, was deemed appropriate for TNK, given at approximately 0030 06/26, and transferred to to [facility] for further evaluation. NIHSS improved to 1 on arrival, and then to NIH of 0 by the AM. [address] of the head completed reviewed by Neuro Critical Care. Was started on Asp / Plavix at 24 hours. B/p controlled. PT assessment this AM. NO deficits. Ambulating independently in the room. Deemed ok for DC home. Echo completed VITALS: Vitals: 06/27/23 0857 06/27/23 0900 06/27/23 1000 06/27/23 1052 BP: (!) 146/96 132/79 BP Location: Patient Position: Pulse: 67 64 81 Resp: 17 16 20 Temp: TempSrc: SpO2: 98% 97% 95% Weight: 66.2 kg (146 lb) Height: 1.753 m (5' 9 ) 24HR PULSE OXIMETRY RANGE: SpO2 Av.1 % Min: 94 % Max: 100 % VENTILATOR SETTINGS: 24 hr I/Os: Intake/Output Summary (Last 24 hours) at 06/27/2023 1353 Last data filed at 06/26/2023 1854 Gross per 24 hour Intake 765 ml Output -- Net 765 ml Invasive Lines / Tubes / Drains: PHYSICAL EXAM: Physical Exam Vitals reviewed. HENT: Head: Normocephalic. Nose: Nose normal. Mouth/Throat: Mouth: Mucous membranes are moist. Eyes: Pupils: Pupils are equal, round, and reactive to light. Cardiovascular: Rate and Rhythm: Normal rate. Pulmonary: Effort: Pulmonary effort is normal. Comments: ON room Air Abdominal: General: Abdomen is flat. Bowel sounds are normal. Genitourinary: Penis: Normal. Musculoskeletal: General: Normal range of motion. Cervical back: Normal range of motion. Skin: General: Skin is warm and dry. Neurological: General: No focal deficit present. Mental Status: He is alert. Psychiatric: Mood and Affect: Mood normal. PROCEDURES/SIGNIFICANT DIAGNOSTIC STUDIES: Echo 06/27 Left Ventricle: Left ventricle size is normal. Normal wall thickness. Normal left ventricular systolic function. The EF by visual approximation is 65%. Normal wall motion. Right Ventricle: Right ventricle size is normal. Normal systolic function. Interatrial Septum: No interatrial shunt visualized on color Doppler. Agitated saline study was negative with and without provocation. No significant valvular abnormalities. CT Head 06/27 FINDINGS: Dose reduction was employed with automated exposure control.3 mm unenhanced imaging of the brain performed. Images viewed in multiple orthogonal planes. Acute findings: No convincing acute ischemia or infarct, mass effect or midline shift, or hemorrhage. Bony structures:Unremarkable as seen. Orbits within normal limits, limited lack of contrast. Review of the paranasal sinuses shows no air-fluid levels. IMPRESSION: No acute brain process identified. MRI 06/26 FINDINGS: Ventricles and sulci are prominent, consistent with age-related cerebral volume loss. There is scattered patchy foci of hyperintense signal on T2-weighted imaging and FLAIR within the periventricular and subcortical white matter. Several of these lesions oriented perpendicular to the lateral ventricles. No extra axial collection. No mass or edema. No acute infarction seen on the diffusion sequence. No evidence of hemorrhage on the gradient echo sequence. The intracranial vascular flow voids are normal in appearance. Cerebellar tonsils are in normal location. There is fluid signal within the bilateral mastoid air cells, right greater than left, and left posterior ethmoid air cells. Bone marrow signal is unremarkable. IMPRESSION: 1. No mass, hemorrhage or infarction. 2. Scattered white matter lesions, which are nonspecific, but most commonly seen with changes of chronic small vessel ischemia. Alternatively, several of these lesions could be seen with demyelination. Correlate clinically. CONSULTANTS: Dr. Garcia DIET: Adult diet Regular ACTIVITY: up with assist resume usual as tolerated DISCHARGE DIAGNOSES: Principal Problem: Stroke determined by clinical assessment ([facility]) DISCHARGE MEDICATIONS: Medication List START taking these medications clopidogrel 75 MG tablet Commonly known as: Plavix Take 1 tablet (75 mg) by mouth daily. Start taking on: June 28, 2023 multivitamin tablet Take 1 tablet by mouth daily. rosuvastatin 20 MG tablet Commonly known as: Crestor Take 1 tablet (20 mg) by mouth daily. Start taking on: June 28, 2023 tamsulosin 0.4 MG 24 hr capsule Commonly known as: Flomax Take 1 capsule (0.4 mg) by mouth daily. Start taking on: June 28, 2023 Where to Get Your Medications These medications were sent to [facility] [address] [place] [address] clopidogrel 75 MG tablet multivitamin tablet rosuvastatin 20 MG tablet tamsulosin 0.4 MG 24 hr capsule DISPOSITION: Home FACILITY/HOME CARE AGENCY NAME: None Follow up with GLORIA GUAJARDO MD on Patient to make appointment - Instructed to call when he gets home today - Daughter advised and verbalized follow thru Instructed to stop smoking Instructed on B/p assessment in the AM and PM DISCHARGE TIME: > 30 minutes documented in this encounter [facility] 06-27-2023 Nurse Note 1255: Discharge instructions discussed with patient and patient daughter at bedside. All questions addressed and answered. Patient ambulated per self out of unit with daughter, refused a wheelchair. [facility] 06-27-2023 Nurse Note 1255: Discharge instructions discussed with patient and patient daughter at bedside. All questions addressed and answered. Patient ambulated per self out of unit with daughter, refused a wheelchair. Pt c/o headache and requesting strictly excedrin; refusing to try anything else - claims that no other medication will relieve his headache and threatening to leave AMA if he does not receive excedrin. This RN explained/educated on the risk of taking excedrin after receiving TNK; however, pt is extremely persistent. MICU & NCC notified. documented in this encounter [facility] 06-27-2023 History of Presen t illness Narrative Images from the original note were not included. PHYSICAL THERAPY [facility] Initial Evaluation Name/MRN: Hanna Herrmann ([id number]) Evaluation Date: 06/27/2023 Date of : 1960 Admission Date: 06/26/2023 3:33 AM Age: 63 y.o. Room/Bed: T2-214/T2-214 A Discharge Recommendation: Home with assist PRN Assessment IMPRESSION: Pt admitted for R hemiparesis, s/p TNK. He is currently Indep for all functional mobility without a device. Pt reported feeling back to his baseline and denied symptoms throughout. Recommend disch to home with assist PRN. No acute PT needs at this time, will sign off. Diagnosis: R hemiparesis, s/p TNK Prognosis: good Performance Deficits /Impairments: N/A Decision Making: Low Complexity Subjective RN OK with Pt to see pt. Pt in bed and agreeable to PT. Pain: Pt denies any current pain. Past Medical History: Past Medical History: Diagnosis Date BPH (benign prostatic hyperplasia) COPD (chronic obstructive pulmonary disease) ([facility]) Emphysema lung ([facility]) HTN (hypertension) Past Surgical History: History reviewed. No pertinent surgical history. Admission Diagnosis: Patient Active Problem List Diagnosis Date Noted Stroke determined by clinical assessment ([facility]) 06/26/2023 Medical Precautions: No active isolations Proper PPE donned/doffed in accordance with facility standards. Fall Risk: Salazar Fall Risk Score: 15 (Low Risk) Precautions/Restrictions: N/A Family/Caregiver Present: none Overall Cognitive Status: WNL Overall Orientation Status: Oriented x4 Vision: not assessed this session Hearing: normal Social/Functional History Patient admitted from home. Lives With: Significant Other Type of Home: trailer Home Layout: Single Level Home Home Access: Stairs to Enter with Rails (# of stairs: 4) Homemaking Responsibilities: Independent Receives Help From: None Active Solar Electric/Photovoltaic Installer: Yes Retired Prior Level of Function ADL Assistance: Independent Ambulation Assistance: Independent Transfer Assistance: Independent Objective Lower Extremity Assessment AROM: WNL PROM: Not assessed this session Strength: WNL 5/5 for knee extension, ankle DF, elbow flexion and extension. Good supply technician strength bilat UE's. Bed Mobility: Supine to sit: Independent Sit to supine: Independent Transfers Sit to stand: Independent Stand to sit: Independent Ambulation Ambulation 1 Assistive device(s) used: none Assist level: Independent Distance (ft): 250 ft Quality of gait: No gait deviations, No LOB, denied symptoms all throughout (CEDENO, vision change, CP, dizziness) Balance: Posture: good Sitting - Static: Independent Sitting - Dynamic: Independent Standing - Static: Independent Standing - Dynamic: Independent Stairs Stairs 1 Assistive device(s) used: none Assist level: Independent # of steps: 12 Rails: none Additional factors: reciprocal going up, reciprocal going down Outcome Measures AM-PAC How much HELP from another person do you currently need Turning from your back to your side while in a flat bed without using bedrails?: None Moving from lying on your back to sitting on the side of a flat bed without using bedrails?: None Moving to and from a bed to a chair (including a wheelchair)?: None Standing up from a chair using your arms (wheelchair or bedside chair)?: None Walking in a hospital room?: None Stair climbing assessed?: Yes Climbing 3-5 steps with a railing?+: None AM-PAC Inpatient Mobility Raw Score : 24 AM-PAC Inpatient Mobility Raw Score (No Stairs) : 20 JH-HLM JH-HLM Score: Walked 250 ft or more (i.e. several laps on unit) Plan No skilled acute PT indicated at this time. Please reconsult should changes occur. Safety/Education Safety Safety Devices in place: call light within reach, left in bed, and gait belt Restraints: No Education Education Given To: patient Education Provided: PT Role, PT Goals, Plan of Care, and Discharge Recommendations Education Method: Verbal and Demonstration, BE FAST protocol and to return to the hospital if symptoms arise Barriers to Learning: None Education Outcome: Verbalized Understanding Goals Patient Stated Goal: To return to home indep today Therapy Time Individual Co-treatment Time In 1049 Time Out 1057 Minutes 8 Noemí Carey PT Patient's Physical Therapy Plan of Care supervision is transferred to a [facility] Therapy Services Physical Therapist. Goals and/or treatment plan was established in collaboration with patient/family/other representatives. Nutrition Assessment Type and Reason for Visit: Positive Nutrition Screen, Initial (Unintentional wt loss) Nutrition Recommendations/Plan: Patient currently on a Regular diet. Consider Low fat/Low chol/High Fiber/KEENAN diet. Patient with high LDL 135, hx of HTN. Per MNT protocol will initiate Ensure HPP 1x/day (provides 350 kcal, 20 g protein). Please record % meal and oral nutrition supplement consumed in flow sheet for most accurate nutrient intake assessment. Will continue to monitor weight changes, labs, and overall nutrition status. RD will continue to follow up weekly. Malnutrition Assessment: Malnutrition Status: At risk for malnutrition (Comment) Context: Acute Illness Findings of the 6 clinical characteristics of malnutrition: Energy Intake: No significant decrease in energy intake Weight Loss: No significant weight loss Body Fat Loss: Mild body fat loss Orbital Muscle Mass Loss: No significant muscle mass loss Fluid Accumulation: No significant fluid accumulation Grid Operator Strength: Nutrition Assessment: 63 y.o. male with PMHx partial colon resection, BPH on flomax, cancer, COPD, emphysema, HTN that presented to [facility] on 06/26/2023 for stroke with initial NIH of 6 and deficits including facial weakness/R sided droop, dysarthria, and right hemiparesis. He was given TNK and transported to [facility] for continued monitoring with NIH reportedly improving to 3. On arrival, vitals showed HTN with SBPs in 150s. NIH improved further to 1 for facial weakness (mild). He is otherwise asymptomatic. 06/26 patient c/o headache, requesting excedrin which he takes at home. Pt informed he cannot take excedrin due to risk of bleeding/ICH s/p TNK. Patient offered APAP which he refused, subsequently threatening to leave AMA. Risks of anti-platelet medications s/p TNK including brain bleed and were explained. Offered oxycodone which he refused - stated he was treated with multiple medications including oxycodone by his cancer doctors in the past and none of them helped his headaches. Is willing to try dose of steroids and remain in the hospital. Decadron/compazine x1 ordered. PLUMBER'S ASSISTANT cleared patient for Regular Cardiac: Low fat, Low cholesterol. High Fiber, KEENAN with Thin liquids diet. Patient is currently on a Regular diet. Patient with positive nutrition screen for unintentional weight loss. Pt reports UBW 145#, but dropped to 119# over 1.5 years ago. CBW 146#. Reports no recent weight changes. Pt reports a good appetite, with no issues prior to admission. Pt states he typically eats a couple times a day. RD observed 100% intake of breakfast. Pt labs show LDL 135, otherwise unsignificant. Pt denies n/v/d/c, chewing or swallowing issues at this time. Estimated Daily Nutrient Needs: Energy Requirements Based On: Kcal/kg Weight Used for Energy Requirements: [place] Weight for Energy Calculation (kg): 73 kg Total Energy Requirements (kcals/day): 4323-8887 kcal/day (25-30) Weight Used for Protein Requirements: [place] Weight in Kg Used for Protein Requirements: 73 kg Estimated Total Protein (g/day): 73-88 g/day (1-1.2) Estimated Daily Total Fluid (ml/day): Nutrition Related Findings: Sunil: 19. I/O: +765. Labs: BUN 27, Glucose 111. BM 06/26. Meds: Protonix Wound Type: None Current Nutrition Therapies: Adult diet Regular Current Oral Intake Average Meal Intake: 76-100% Average Supplements Intake: None Ordered Anthropometric Measures: Height: 175.3 cm (5' 9 ) Current Body Weight: 66.2 kg (146 lb) (06/26/23) Weight Source: Stated Admission Body Weight: 66.2 kg (146 lb) Usual Body Weight: 65.8 kg (145 lb) % Weight Change (Calculated): 0.7 [place] Body Weight (lbs) (Calculated): 160 lbs [place] Body Weight (Kg) (Calculated): 73 kg % [place] Body Weight (Calculated): 91.3 % BMI (kg/m2) (Calculated): 21.6 Weight Adjustment For: No Adjustment BMI Categories: Underweight (BMI less than 22) age over 65 Nutrition Diagnosis: Underweight related to inadequate protein-energy intake as evidenced by BMI Nutrition Interventions: Nutrition Education/Counseling: No recommendation at this time Coordination of Nutrition Care: Continue to monitor while inpatient Goals: Goals: Meet at least 75% of estimated needs, by next RD assessment Nutrition Monitoring and Evaluation: Behavioral-Environmental Outcomes: None Identified Food/Nutrient Intake Outcomes: Food and Nutrient Intake, Supplement Intake Physical Signs/Symptoms Outcomes: Biochemical Data, Chewing or Swallowing, GI Status, Nausea or Vomiting, Weight, Skin, Nutrition Focused Physical Findings, Hemodynamic Status, Fluid Status or Edema Discharge Planning: Too soon to determine Diane Bacon RD Contact: *[phone] PROGRESS NOTE. NEUROCRITICAL CARE Patient Name:Hanna Herrmann Patient : 1960 Acct: [id number] Date of Admission: 06/26/2023 Room/Bed: T2-214/T2-214 A PCP: No primary care provider on file. Chief complaint: R sided weakness Hospital Course: 63M PMH s/p partial colon resection, BPH, tobacco abuse, PUD/GIB, GERD presented to OSH 06/26 with R sided weakness (face, arm, leg) and dysarthria. NIH 6. CT Head negative. Treated with tenectaplase @ 0053 at OSH and transferred to [facility]. Overnight events: Afebrile. SBP 110-140's. Feeling well, no issues overnight. Diet/TF:regular VTE prophylaxis: YES SCDs Antithrombotic therapy in first 24 hrs: YES thrombolytic Statin therapy for stroke stroke patients: High intensity Anticoagulation on AF patients: N/A no history of AF Current Hospital Medications: Current Facility-Administered Medications: acetaminophen (Tylenol) tablet 650 mg, 650 mg, Oral, q6h PRN OR acetaminophen (Tylenol) suppository 650 mg, 650 mg, Rectal, q6h PRN, Davi Chua MD aspirin EC tablet 81 mg, 81 mg, Oral, Daily, Maksim Garcia MD clopidogrel (Plavix) tablet 75 mg, 75 mg, Oral, Daily, Maksim Garcia MD dextrose 5 % infusion, 100 mL/hr, IntraVENous, PRN, Davi Chua MD dextrose 50 % solution 12.5 g, 12.5 g, IntraVENous, PRN, Davi Chua MD enoxaparin (Lovenox) syringe 40 mg, 40 mg, SubCUTAneous, Daily, Maksim Garcia MD glucagon (human recombinant) injection 1 mg, 1 mg, IntraMUSCular, PRN, Davi Chua MD glucose oral gel 15 g, 15 g, Oral, PRN, Davi Chua MD labetalol (Normodyne,Trandate) injection 10 mg, 10 mg, IntraVENous, q6h PRN OR hydrALAZINE (Apresoline) injection 10 mg, 10 mg, IntraVENous, q4h PRN, Davi Chua MD ondansetron ODT (Zofran-ODT) disintegrating tablet 4 mg, 4 mg, Oral, q8h PRN OR ondansetron (Zofran) injection 4 mg, 4 mg, IntraVENous, q6h PRN, Davi Chua MD pantoprazole (ProtoNix) EC tablet 40 mg, 40 mg, Oral, Nightly, 40 mg at 06/26/232014 OR pantoprazole (ProtoNix) 40 mg in sodium chloride (PF) 0.9 % 10 mL injection, 40 mg, IntraVENous, Nightly, Davi Chua MD polyethylene glycol (PEG) 3350 (Miralax) packet 17 g, 17 g, Oral, Daily PRN, Davi Chua MD rosuvastatin (Crestor) tablet 20 mg, 20 mg, Oral, Daily, Davi Chua MD, 20 mg at 06/26/23827 sodium chloride 0.9 % infusion, 50 mL/hr, IntraVENous, Continuous, Davi Chua MD, Last Rate: 50 mL/hr at 06/26/23399, 50 mL/hr at 06/26/23399 tamsulosin (Flomax) 24 hr capsule 0.4 mg, 0.4 mg, Oral, Daily, Davi Chua MD, 0.4 mg at 06/26/23827 Continuous Infusions: sodium chloride, 50 mL/hr, Last Rate: 50 mL/hr (06/26/23399) Allergies: Patient has no known allergies. Review of Systems Denies complaints Telemetry: Arrhythmia:No Physical Examination: Patient Vitals for the past 8 hrs: BP Temp Temp src Pulse Resp SpO2 Height 06/27/23 0747 -- -- -- -- -- -- 1.753 m (5' 9 ) 06/27/23 07 131/74 -- -- 56 13 97 % -- 06/27/23 0600 123/75 -- -- 53 14 95 % -- 06/27/23 0500 (!) 148/81 -- -- 57 15 99 % -- 06/27/23 0400 118/68 36.7 C (98 F) Temporal 58 14 96 % -- 06/27/23 0300 122/64 -- -- 61 20 96 % -- 06/27/23 0200 125/84 -- -- 63 15 94 % -- 06/27/23 0100 118/76 -- -- 66 13 96 % -- I/O last 3 completed shifts: In: 765 (11.6 mL/kg) [P.O.:240; I.V.:525 (7.9 mL/kg)] Out: - (0 mL/kg) Weight: 66.2 kg General Physical Examination: General: Awake HEENT:Normocephalic, atraumaticl CV: S1+S2, RRR, no MRG. Pulm:CTA b/l, unlabored Abdomen: Soft NT/ND. BS + Skin: Intact without ulcers, breakdowns or discoloration Extremities: normal with no edema or cyanosis Orthopedic limitation; No Pulses: Intact peripherally Carotid auscultation :No bruits Neurological Examination: Higher Functions: Mental Status Exam: Level of Alertness:Awake Orientation: Normal toself, time, place Memory: Normal Fund of Knowledge: Normal Language: Normal Dysarthria not present Cranial Nerves: -II Visual acuity: normal -II Visualfields: normal -III Pupils (~ 3 mm OD, 3 mm OU) equal, round, reactive to light -III-IV- Extraocular Movements: intact -Nystagmus not present -Saccades and pursuits normal -V Facial sensation: intact Corneal's Intact bilateral -VII Facial strength:intact -VIII Hearing: intact -IX-X - Gag reflex present -X Palate: intact -XI Shoulder shrug: intact -XII Tongue movement: normal MotorExamination: Tone after evaluation of 4 limbs, the following findings applied: Normal -Bulk: normal -Muscle Stretch afterevaluation of all limbs, and axial musculature the following findings applied: Drift: absent normal -Reflexes: after evaluation of 4 limbs, the following findings applied ; normal all limbs -Plantar responce: Flexor bilaterally Sensory Intact to light touch, pain / temperature, proprioception, Coordination: Arms Normal finger to nose Legs Intact heel knee sinclair testing Tremors not present Gait Normal NIHSS: 2 ANCILLARY Lipids: Recent Labs 06/26/23 0507 CHOL 191 TRIG 81 HDL 40 Cardiac testing: EKG: IMPRESSION: Sinus rhythm no new kenny, no new std Electronically Signed On 06-26-2023 18:16:37 EST by Maicol Daily TTE: Left Ventricle: Left ventricle size is normal. Normal wall thickness. Normal left ventricular systolic function. The EF by visual approximation is 65%. Normal wall motion. Right Ventricle: Right ventricle size is normal. Normal systolic function. Interatrial Septum: No interatrial shunt visualized on color Doppler. Agitated saline study was negative with and without provocation. No significant valvular abnormalities. Radiology/imaging personal review: MRI Brain 06/26/22: IMPRESSION: 1. No mass, hemorrhage or infarction. 2. Scattered white matter lesions, which are nonspecific, but most commonly seen with changes of chronic small vessel ischemia. Alternatively, several of these lesions could be seen with demyelination. Correlate clinically. CT Head 06/27/22: IMPRESSION: No acute brain process identified. CTA head/neck OSH: Mild aortic arch atherosclerosis and R common carotid atherosclerosis (mild) ASSESSMENT / PLAN/RECOMMENDATIONS: R sided weakness/dysarthria s/p tenectaplase - Concerning for acute ischemic stroke aborted by thrombolytic. MRI without acute stroke. Etiology: Cryptogenic (possible small vessel ischemic diease in setting of pure motor symptoms) - TTE WNL (see above) - Plavix 75 only (no DAPT due to history of recurrent IB/PUD) - Rosuvastatin 20 - SBP goal <140/90 - Follow up with OP stroke clinic (pt OK with driving to [place] for follow up) HLD - LDL 135 - Statin Tobacco abuse - [place] on cessation PUD - PPI Pt can be discharged today. Discussed with ICU. 27 minutes of my independent time was spent preparing to see the patient, obtaining/reviewing separately obtained history, completing an appropriate medical examination of the patient, ordering medications/tests/procedures, documenting clinical information on the EMR, and/or coordinating care. Discussed with Dr. Garcia. Speech-Language Pathology Patient passed the Nursing Swallowing Screening and is on a Regular diet, Cardiac: Low fat, Low cholesterol. High Fiber, KEENAN with Thin liquids. Completed speech orders as per stroke protocol. Images from the original note were not included. OCCUPATIONAL THERAPY [facility] Name/MRN: Hanna Herrmann ([id number]) Date: 06/26/2023 OT orders received, chart reviewed. Pt currently with bedrest orders. Hold OT pending upgraded activity orders. Will re-attempt as schedule permits. Arielle Cardoza OT documented in this encounter [facility] 06-27-2023 Note Formatting of this n ote is different from the original. Images from the original note were not included. Care Management Progress Note Chart reviewed. Discharge order noted. Spoke with patient at bedside. Introduced myself and my role as TCC. Patient denies any questions/concerns about being discharged at this time. Patient has transportation home. Will continue to follow. Discharge Milestones and Delays Expected Date/Time: 06/27/2023 Afternoon Disposition: Home or Self Care Transport status: No current request Discharge Milestones Place discharge order Complete med reconciliation Case mgmt discharge readiness Clinical Stability Diagnsotic Workup Expected Discharge History Expected Date/Time Set By Reviewed At 06/27/2023 Afternoon AMANUEL Valdovinos CNP 06/27/2023 12:27 PM 07/04/2023 Afternoon AMANUEL Valdovinos CNP 06/27/2023 12:24 PM 07/04/2023 Josephine Billings RN 06/27/2023 7:31 AM 06/28/2023 Davi Chua MD 06/26/2023 4:31 AM 06/28/2023 Davi Chua MD 06/26/2023 3:48 AM Length of Stay (Days): 1 GMLOS: No GMLOS Documented [facility] 06-27-2023 Note Formatting of this n ote is different from the original. Images from the original note were not included. Care Management Progress Note Chart reviewed. Discharge order noted. Spoke with patient at bedside. Introduced myself and my role as TCC. Patient denies any questions/concerns about being discharged at this time. Patient has transportation home. Will continue to follow. Discharge Milestones and Delays Expected Date/Time: 06/27/2023 Afternoon Disposition: Home or Self Care Transport status: No current request Discharge Milestones Place discharge order Complete med reconciliation Case mgmt discharge readiness Clinical Stability Diagnsotic Workup Expected Discharge History Expected Date/Time Set By Reviewed At 06/27/2023 Afternoon AMANUEL Valdovinos CNP 06/27/2023 12:27 PM 07/04/2023 Afternoon AMANUEL Valdovinos CNP 06/27/2023 12:24 PM 07/04/2023 Josephine Billings RN 06/27/2023 7:31 AM 06/28/2023 Davi Chua MD 06/26/2023 4:31 AM 06/28/2023 Davi Chua MD 06/26/2023 3:48 AM Length of Stay (Days): 1 GMLOS: No GMLOS Documented [facility] 06-27-2023 Miscellaneous Notes Images from the original note were not included. Care Management Progress Note Chart reviewed. Discharge order noted. Spoke with patient at bedside. Introduced myself and my role as TCC. Patient denies any questions/concerns about being discharged at this time. Patient has transportation home. Will continue to follow. Discharge Milestones and Delays Expected Date/Time: 06/27/2023 Afternoon Disposition: Home or Self Care Transport status: No current request Discharge Milestones Place discharge order Complete med reconciliation Case mgmt discharge readiness Clinical Stability Diagnsotic Workup Expected Discharge History Expected Date/Time Set By Reviewed At 06/27/2023 Afternoon AMANUEL Valdovinos CNP 06/27/2023 12:27 PM 07/04/2023 Afternoon AMANUEL Valdovinos CNP 06/27/2023 12:24 PM 07/04/2023 Josephine Billings RN 06/27/2023 7:31 AM 06/28/2023 Davi Chua MD 06/26/2023 4:31 AM 06/28/2023 Davi Chua MD 06/26/2023 3:48 AM Length of Stay (Days): 1 GMLOS: No GMLOS Documented Neurology recommending Neuro follow up. Patient prefers to follow up with [facility] Neurology. Appointment scheduled. Hospital Follow Up with Ana Grant Tuesday 1:00 PM Please arrive 15 minutes prior to appointment, bring insurance card and photo ID. [facility] [address] [facility] [address] [facility] [id number] Arrive at: [facility] ICU Significant Event Note Early this AM patient c/o CEDENO, requesting excedrin which he takes at home. Pt informed that we cannot give him excedrin due to risk of bleeding/ICH s/p TNK. Patient offered APAP which he refused, subsequently threatening to leave AMA. On arrival to bedside pt again demanding excedrin, states tylenol does not work for him. Explained risks of anti-platelet medications s/p TNK including brain bleed and . Offered oxycodone which he refused - stated he was treated with multiple medications including oxycodone by his cancer doctors in the past and none of them helped his headaches. Is willing to try dose of steroids and remain in the hospital. Decadron/compazine x1 ordered. documented in this encounter [facility] 06-27-2023 Note Formatting of this n ote is different from the original. Neurology recommending Neuro follow up. Patient prefers to follow up with [facility] Neurology. Appointment scheduled. Hospital Follow Up with Ana Corral Aug 02, 2023 1:00 PM Please arrive 15 minutes prior to appointment, bring insurance card and photo ID. [facility] [address] [facility] [address] [facility] [id number] Arrive at: [facility] 06-27-2023 Note Formatting of this n ote is different from the original. Neurology recommending Neuro follow up. Patient prefers to follow up with [facility] Neurology. Appointment scheduled. Hospital Follow Up with Ana M Tuesday 1:00 PM Please arrive 15 minutes prior to appointment, bring insurance card and photo ID. [facility] [address] [place] [address] [facility] [id number] Arrive at: [facility] NEURO [facility] 06-27-2023 Note PROGRESS NOTE. NEURO CRITICAL CARE Patient Name:Hanna Herrmann Patient : 1960 Acct: [id number] Date of Admission: 06/26/2023 Room/Bed: T2-214/T2-214 A PCP: No primary care provider on file. Chief complaint: R sided weakness Hospital Course: 63M PMH s/p partial colon resection, BPH, tobacco abuse, PUD/GIB, GERD presented to OSH 06/26 with R sided weakness (face, arm, leg) and dysarthria. NIH 6. CT Head negative. Treated with tenectaplase @ 0053 at OSH and transferred to [facility]. Overnight events: Afebrile. SBP 110-140's. Feeling well, no issues overnight. Diet/TF:regular VTE prophylaxis: YES SCDs Antithrombotic therapy in first 24 hrs: YES thrombolytic Statin therapy for stroke stroke patients: High intensity Anticoagulation on AF patients: N/A no history of AF Current Hospital Medications: Current Facility-Administered Medications: acetaminophen (Tylenol) tablet 650 mg, 650 mg, Oral, q6h PRN OR acetaminophen (Tylenol) suppository 650 mg, 650 mg, Rectal, q6h PRN, Davi Chua MD aspirin EC tablet 81 mg, 81 mg, Oral, Daily, Maksim Garcia MD clopidogrel (Plavix) tablet 75 mg, 75 mg, Oral, Daily, Maksim Garcia MD dextrose 5 % infusion, 100 mL/hr, IntraVENous, PRN, Davi Chua MD dextrose 50 % solution 12.5 g, 12.5 g, IntraVENous, PRN, Davi Chua MD enoxaparin (Lovenox) syringe 40 mg, 40 mg, SubCUTAneous, Daily, Maksim Garcia MD glucagon (human recombinant) injection 1 mg, 1 mg, IntraMUSCular, PRN, Davi Chua MD glucose oral gel 15 g, 15 g, Oral, PRN, Davi Chua MD labetalol (Normodyne,Trandate) injection 10 mg, 10 mg, IntraVENous, q6h PRN OR hydrALAZINE (Apresoline) injection 10 mg, 10 mg, IntraVENous, q4h PRN, Davi Chua MD ondansetron ODT (Zofran-ODT) disintegrating tablet 4 mg, 4 mg, Oral, q8h PRN OR ondansetron (Zofran) injection 4 mg, 4 mg, IntraVENous, q6h PRN, Davi Chua MD pantoprazole (ProtoNix) EC tablet 40 mg, 40 mg, Oral, Nightly, 40 mg at 06/26/232014 OR pantoprazole (ProtoNix) 40 mg in sodium chloride (PF) 0.9 % 10 mL injection, 40 mg, IntraVENous, Nightly, Davi Chua MD polyethylene glycol (PEG) 3350 (Miralax) packet 17 g, 17 g, Oral, Daily PRN, Davi Chua MD rosuvastatin (Crestor) tablet 20 mg, 20 mg, Oral, Daily, Davi Chua MD, 20 mg at 06/26/23827 sodium chloride 0.9 % infusion, 50 mL/hr, IntraVENous, Continuous, Davi Chua MD, Last Rate: 50 mL/hr at 06/26/23399, 50 mL/hr at 06/26/23399 tamsulosin (Flomax) 24 hr capsule 0.4 mg, 0.4 mg, Oral, Daily, Davi Chua MD, 0.4 mg at 06/26/23827 Continuous Infusions: sodium chloride, 50 mL/hr, Last Rate: 50 mL/hr (06/26/23399) Allergies: Patient has no known allergies. Review of Systems Denies complaints Telemetry: Arrhythmia:No Physical Examination: Patient Vitals for the past 8 hrs: BP Temp Temp src Pulse Resp SpO2 Height 06/27/23 0747 -- -- -- -- -- -- 1.753 m (5' 9 ) 06/27/23 0700 131/74 -- -- 56 13 97 % -- 06/27/23 0600 123/75 -- -- 53 14 95 % -- 06/27/23 0500 (!) 148/81 -- -- 57 15 99 % -- 06/27/23 0400 118/68 36.7 ?C (98 ?F) Temporal 58 14 96 % -- 06/27/23 0300 122/64 -- -- 61 20 96 % -- 06/27/23 0200 125/84 -- -- 63 15 94 % -- 06/27/23 0100 118/76 -- -- 66 13 96 % -- I/O last 3 completed shifts: In: 765 (11.6 mL/kg) [P.O.:240; I.V.:525 (7.9 mL/kg)] Out: - (0 mL/kg) Weight: 66.2 kg General Physical Examination: General: Awake HEENT:Normocephalic, atraumaticl CV: S1+S2, RRR, no MRG. Pulm:CTA b/l, unlabored Abdomen: Soft NT/ND. BS + Skin: Intact without ulcers, breakdowns or discoloration Extremities: normal with no edema or cyanosis Orthopedic limitation; No Pulses: Intact peripherally Carotid auscultation :No bruits Neurological Examination: Higher Functions: Mental Status Exam: Level of Alertness:Awake Orientation: Normal toself, time, place Memory: Normal Fund of Knowledge: Normal Language: Normal Dysarthria not present Cranial Nerves: -II Visual acuity: normal -II Visualfields: normal -III Pupils (~ 3 mm OD, 3 mm OU) equal, round, reactive to light -III-IV- Extraocular Movements: intact -Nystagmus not present -Saccades and pursuits normal -V Facial sensation: intact Corneal's Intact bilateral -VII Facial strength:intact -VIII Hearing: intact -IX-X - Gag reflex present -X Palate: intact -XI Shoulder shrug: intact -XII Tongue movement: normal MotorExamination: Tone after evaluation of 4 limbs, the following findings applied: Normal -Bulk: normal -Muscle Stretch afterevaluation of all limbs, and axial musculature the following findings applied: Drift: absent normal -Reflexes: after evaluation of 4 limbs, the following findings applied ; normal all limbs -Plantar responce: Flexor bilaterally Sensory Intact to light touch, pain / temperature, proprioception, Coordination: Arms Normal finger to nose Legs Intact heel knee sinclair testing (more content not included)... [facility] 06-26-2023 Note Formatting of this n ote might be different from the original. ICU Significant Event Note Early this AM patient c/o CEDENO, requesting excedrin which he takes at home. Pt informed that we cannot give him excedrin due to risk of bleeding/ICH s/p TNK. Patient offered APAP which he refused, subsequently threatening to leave AMA. On arrival to bedside pt again demanding excedrin, states tylenol does not work for him. Explained risks of anti-platelet medications s/p TNK including brain bleed and . Offered oxycodone which he refused - stated he was treated with multiple medications including oxycodone by his cancer doctors in the past and none of them helped his headaches. Is willing to try dose of steroids and remain in the hospital. Decadron/compazine x1 ordered. [employer] Phone: 06-26-2023 Note Formatting of this n ote might be different from the original. ICU Significant Event Note Early this AM patient c/o CEDENO, requesting excedrin which he takes at home. Pt informed that we cannot give him excedrin due to risk of bleeding/ICH s/p TNK. Patient offered APAP which he refused, subsequently threatening to leave AMA. On arrival to bedside pt again demanding excedrin, states tylenol does not work for him. Explained risks of anti-platelet medications s/p TNK including brain bleed and . Offered oxycodone which he refused - stated he was treated with multiple medications including oxycodone by his cancer doctors in the past and none of them helped his headaches. Is willing to try dose of steroids and remain in the hospital. Decadron/compazine x1 ordered. [employer] Phone: 06-26-2023 Note Attestation signed by Hanna Milian DO at 06/26/2023 8:11 AM I have personally performed a [id number] diagnostic evaluation on this patient on date of service 06/26/2023. History, labs, imaging studies, and electronic medical record have been reviewed by me. This note documented by the [x]supervisor melt house []SHALONDA reflects my history, exam, and medical decision making. I have reviewed and agree with the care plan. Changes were made in the orders as necessary. ROS documentation was reviewed and negative unless otherwise stated in HPI. Additional pertinent interval history, ROS, and physical exam findings: Mr Herrmann is a 63 year old male who presented to [facility] ED with complaint of right hemiparesis, right facial droop and dysarthria. Given TNK on arrival and transferred to [facility] for further evaluation. On arrival patient only with mild facial weakness. Patient is awake and alert. Hemodynamically stable. Does report headache stating that he has history of such and if he is unable to take medication for such it will progress into severe migraine. Reports taking Excedrin for headaches at home. Assessment: Acute ischemic stroke s/p TNK Hypertension Headache COPD BPH Plan: -Admit to MICU -Goal SBP <180 -Plan for MRI brain -TTE ordered -PT/OT/PLUMBER'S ASSISTANT evals -Resume home medications as appropriate Total critical care time for this patient with life-threatening unstable organ failure, including direct patient contact, management of life support systems, review of data including imaging and labs, and discussions with other team members and physicians at least 33 minutes so far today, excluding procedures. [facility] Critical Care Medicine [facility] MICU Initial History and Physical Name: Hanna Herrmann : 1960(63 y.o.) Date: 06/26/23 Attending: Dr. aHnna Milian Subjective: Chief Complaint: Stroke HPI: Hanna Herrmann is a 63 y.o. male with PMHx partial colon resection, BPH on flomax that presented to [facility] on 06/26/2023 from [facility] for stroke with initial NIH of 6 and deficits including facial weakness/R sided droop, dysarthria, and right hemiparesis. He was given TNK and transported to [facility] for continued monitoring with NIH reportedly improving to 3. On arrival, vitals show hypertension with SBPs in 150s. Labs are pending. Imaging disks were provided from [facility]. NIH improved further to 1 for facial weakness (mild). He is otherwise asymptomatic. He denies other medications save for Flomax. Review of Systems: Review of Systems Respiratory: Negative for cough, chest tightness, shortness of breath and wheezing. Cardiovascular: Negative for chest pain. Gastrointestinal: Negative for abdominal pain, blood in stool, constipation, diarrhea, nausea and vomiting. Musculoskeletal: Negative for gait problem and joint swelling. Neurological: Positive for facial asymmetry (Very mild). Negative for dizziness, tremors, speech difficulty, weakness, light-headedness, numbness and headaches. Past Medical History: History reviewed. No pertinent past medical history. Past Surgical History: History reviewed. No pertinent surgical history. Family History: No family history on file. Social History: Allergies: No Known Allergies Home Medications: No current outpatient medications Objective: Vitals: BP (!) 143/89 Pulse 59 Temp 36.8 ?C (98.3 ?F) (Oral) Resp 15 Ht 5' 9 (1.753 m) Wt 146 lb (66.2 kg) SpO2 98% BMI 21.56 kg/m? Oxygen Delivery: I/O: No intake or output data in the 24 hours ending 06/26/23 0416 Physical Exam: Constitutional: General Appearance [x]WDWN []Obese []Cachectic []Thin []Ill Eyes: Inspection of Pupils/Irises Pupils round and react: [x]Yes 3 mm []No Sclera: []Icteric [x]Non-Icteric Inspection of Conjunctiva/Lids Conjunctiva: []Injected [x]Non-Injected Lids: [x]Intact []Lesion Present ENT/Mouth: External Inspection of ears/nose [x] Normal [] Scar/Lesion/Mass Inspection of teeth/lips/gums Dentition: [x][place] Teeth []Dentures Lips/Gums: [x]Intact []Lesion Present Mucosa: [x][place] [x]Moist []Dry Neck: External Appearance Overall Appearance: [x]Normal []Lesion/Mass/Crepitus Present Trachea midline: []Yes []No Thyroid []Normal []Enlarged []Tender []Mass []Absent Respiratory: Respiratory effort []Labored []Non-Labored [] Mechanically-Ventilated Auscultation [x]Clear []Crackles []Wheezes []Rhonchi Cardiovascular: Auscultation Rate: [x]Regular []Irregular []Tachycardia []Bradycardia Rhythm: [x]Regular []Irregular Murmur: []Present [x]Absent Extremities Peripheral Edema: []Present [x]Absent Varicosities: []Present [x]Absent Gastrointestinal: Abdomen Palpation: (more content not included)... [facility] 06-26-2023 Nurse Note Pt c/o headache and requesting strictly excedrin; refusing to try anything else - claims that no other medication will relieve his headache and threatening to leave AMA if he does not receive excedrin. This RN explained/educated on the risk of taking excedrin after receiving TNK; however, pt is extremely persistent. MICU & NCC notified. [facility] 06-26-2023 Hospital Discharg e instructions Lila Fernandez APRN - GRAVITY MANAGER - 06/26/2023 5:33 AM EST Refer to the Understanding Stroke Booklet given to you, written material provided to patient/family, addressing all signs & symptoms of a stroke, which are: sudden numbness or weakness of the face, arm or leg, especially on one side of the body sudden confusion sudden difficulty speaking or understanding sudden trouble seeing in one or both eyes sudden trouble walking,dizziness, loss of balance or coordination sudden severe headache with no known cause syncope or temporary loss of consciousness seizure Explained the need to call EMS ([phone]) immediately if signs & symptoms occur. Discussed medications that the patient is taking, will review medications again prior to discharge, risk factors, and the need for follow-up with a physician/BAKERY WORKER/PA after discharge. Ramsey Sun RN on 06/26/23 at 5:32 AM Discussed the patient s personal risk factors for Stroke /TIA with patient/family, and ways to reduce the risk for a recurrent stroke. Patient's personal risk factors which were identified are: [x] High blood pressure [x] High cholesterol [] Atrial fibrillation [] Diabetes [x] Smoking/e-cigarettes/vaping [] Smokeless tobacco [] Overweight [x] Lack of Exercise [] Sleep apnea [] Prior heart disease or heart attack [] Excessive alcohol use [x] Use of illicit drugs [] Personal history of previous TIA or stroke [] Family history of stroke or heart disease [] Carotid stenosis [] Heart failure [] Patent Foramen [place] [x] Migraine [] Hormone replacement therapy [] Current (up to six weeks post ) [] Depression [] Sickle Cell [] Renal insufficiency - chronic [] None Refer to Understanding Stroke Booklet. Advised patient that risk for stroke/TIA can be reduced by modifying/controlling risk factors. Patient advised to take medications as prescribed, which will be detailed in the discharge instructions, and to not stop taking them without consulting a physician. In addition, pt. advised to maintain a healthy diet, exercise regularly and to not smoke. Ramsey Sun RN on 06/26/23 at 5:32 AM AMANUEL Valdovinos CNP - 06/27/2023 11:30 AM EST Instructed to keep diary of B/p - Assess B/p in the AM and PM Will Follow up with his PCP in the next 1 weeks - Xochilt Chi Juan Antonio - Instructed to Stop Smoking The following attachments cannot be sent through Care Everywhere.Quitting Smoking (Citizen [place])Clot Dissolving Drugs for Heart Attack or Stroke (Citizen Of [place])Medicines After an Ischemic Stroke (Citizen [place])documented in this encounter [facility] 06-26-2023 History and physical note Images from the original note were not included. [facility] Critical Care Medicine [facility] MICU Initial History and Physical Name: Hanna Herrmann : 1960(63 y.o.) Date: 06/26/23 Attending: Dr. Hanna Milian Subjective: Chief Complaint: Stroke HPI: Hanna Herrmann is a 63 y.o. male with PMHx partial colon resection, BPH on flomax that presented to [facility] on 06/26/2023 from [place] for stroke with initial NIH of 6 and deficits including facial weakness/R sided droop, dysarthria, and right hemiparesis. He was given TNK and transported to [facility] for continued monitoring with NIH reportedly improving to 3. On arrival, vitals show hypertension with SBPs in 150s. Labs are pending. Imaging disks were provided from [facility]. NIH improved further to 1 for facial weakness (mild). He is otherwise asymptomatic. He denies other medications save for Flomax. Review of Systems: Review of Systems Respiratory: Negative for cough, chest tightness, shortness of breath and wheezing. Cardiovascular: Negative for chest pain. Gastrointestinal: Negative for abdominal pain, blood in stool, constipation, diarrhea, nausea and vomiting. Musculoskeletal: Negative for gait problem and joint swelling. Neurological: Positive for facial asymmetry (Very mild). Negative for dizziness, tremors, speech difficulty, weakness, light-headedness, numbness and headaches. Past Medical History: History reviewed. No pertinent past medical history. Past Surgical History: History reviewed. No pertinent surgical history. Family History: No family history on file. Social History: Allergies: No Known Allergies Home Medications: No current outpatient medications Objective: Vitals: BP (!) 143/89 Pulse 59 Temp 36.8 C (98.3 F) (Oral) Resp 15 Ht 5' 9 (1.753 m) Wt 146 lb (66.2 kg) SpO2 98% BMI 21.56 kg/m Oxygen Delivery: I/O: No intake or output data in the 24 hours ending 06/26/23 0416 Physical Exam: Constitutional: General Appearance [x]WDWN []Obese []Cachectic []Thin []Ill Eyes: Inspection of Pupils/Irises Pupils round and react: [x]Yes 3 mm []No Sclera: []Icteric [x]Non-Icteric Inspection of Conjunctiva/Lids Conjunctiva: []Injected [x]Non-Injected Lids: [x]Intact []Lesion Present ENT/Mouth: External Inspection of ears/nose [x] Normal [] Scar/Lesion/Mass Inspection of teeth/lips/gums Dentition: [x][place] Teeth []Dentures Lips/Gums: [x]Intact []Lesion Present Mucosa: [x][place] [x]Moist []Dry Neck: External Appearance Overall Appearance: [x]Normal []Lesion/Mass/Crepitus Present Trachea midline: []Yes []No Thyroid []Normal []Enlarged []Tender []Mass []Absent Respiratory: Respiratory effort []Labored []Non-Labored [] Mechanically-Ventilated Auscultation [x]Clear []Crackles []Wheezes []Rhonchi Cardiovascular: Auscultation Rate: [x]Regular []Irregular []Tachycardia []Bradycardia Rhythm: [x]Regular []Irregular Murmur: []Present [x]Absent Extremities Peripheral Edema: []Present [x]Absent Varicosities: []Present [x]Absent Gastrointestinal: Abdomen Palpation: [x]Soft []Firm []Tender [x]Non-Tender []Distended [x]Non-distended Mass: []Present []Absent Bowel Sounds: []Present []Absent Hernia: []Present []Absent Liver/Spleen: []Hepatosplenomegaly []Organomegaly Absent Musculoskeletal: Inspection of Digits and Nails Cyanosis: []Present [x]Absent Clubbing: []Present [x]Absent Ischemia: []Present [x]Absent Infection: []Present [x]Absent Extremities RUBIO Equally: Except ([]RUE []RLE []LUE []LLE) Strength/Tone: Intact and Normal ([]RUE []RLE []LUE []LLE) Skin: Inspection [x]Normal []Rash []Lesion []Ulcer Palpation []Warm []Cool []Dry []Clammy []Nodules []Induration []Skin-tightening Cap-Refill: [] <3 sec [] >3 seconds (delayed) Neurologic: GCS EYE: 4 - Opens spontaneously GCS MOTOR: 6 - Obeys commands for movement GCS VERBAL: 5 - Oriented to person, place, time Total GCS: 15 [x] Sensation grossly intact (resolved w/ TNK) Psych: Mental Status Alert: [x]Yes [] No Oriented: []x0 []X1 []X2 [x]x3 Mood/Affect [x]Normal []Flat []Agitated []Depressed []Anxious []Calm []Sedated []NAD Laboratory Tests: Recent Results (from the past 24 hour(s)) POCT glucose meter Collection Time: 06/26/23 3:40 AM Result Value Ref Range Glucose 115 (H) 70 - 100 mg/dL Lipid panel: No results found for: CHOL , HDL , LDL , TRIG Endo profile: No results found for: HGBA1C , TSH , FREET4 , PNTKESTF97 , VITD25 , PSA Microbiology: Cultures and gram-stain: No results found for: BLOODCX , URINECX , RESPCULT , CULTURE MRSA by PCR: No results found for: STAPHAUREUS , MECA COVID-19 & Respiratory PCR Panel: No results found for: SARSCOV2 , ADENOVIRUS , CORONAHKU1 , XYZZQQDG56 , GBAOED181Q , CINIYHRV75 , HUMANMETAPNE , RHINOENTERO , INFLUENZAA , INFLUENZAB , PARIN1 , PARIN2 , PARIN3 , PARIN4 , RSV , BORDETELLAPE , BORDETELLAPA , CHLAMYDPNEU , MYCOPLASMAPN Pneumonia PCR Panel: NA Urine Antigens: No results found for: LEGURQUAL , STREPPNEUMON Imaging: No results found for this or any previous visit from the past 365 days. Assessment and Plan: Principal Problem: Stroke determined by clinical assessment (HCC) Assessment: Stroke s/p TNK, etiology to be determined Hypertension BPH Plan: Admit to MICU, plan to initiate stroke workup w/ MRI w/o contrast, TTE SBP < 180, PRN labetalol/hydralazine available at this time Avoid antiplatelet for first 24 hours, strict bedret for 24 hours PT/OT/speech therapy for swallow eval Hypoglycemia protocol, HbA1c, lipid panel, TSH checks Daily CMP, CBC, replete electrolytes PRN Continue home Flomax Goals of Care: Full Code GI Prophylaxis: Pantoprazole IV DVT Prophylaxis: SCDs Diet: NPO BMI Classification: Body mass index is 21.56 kg/m . Disposition: Admit to MICU. Critical Care Time: 60 minutes Total critical care time caring for this patient with life threatening, unstable organ failure, including direct patient contact, management of life support systems, review of data including imaging and labs, discussions with other team members and physicians, excluding procedures. Associated attestation - Hanna Milian DO - 06/26/2023 8:11 AM EST I have personally performed a [id number] diagnostic evaluation on this patient on date of service 06/26/2023. History, labs, imaging studies, and electronic medical record have been reviewed by me. This note documented by the [x]supervisor melt house []SHALONDA reflects my history, exam, and medical decision making. I have reviewed and agree with the care plan. Changes were made in the orders as necessary. ROS documentation was reviewed and negative unless otherwise stated in HPI. Additional pertinent interval history, ROS, and physical exam findings: Mr Herrmann is a 63 year old male who presented to [facility] ED with complaint of right hemiparesis, right facial droop and dysarthria. Given TNK on arrival and transferred to [facility] for further evaluation. On arrival patient only with mild facial weakness. Patient is awake and alert. Hemodynamically stable. Does report headache stating that he has history of such and if he is unable to take medication for such it will progress into severe migraine. Reports taking Excedrin for headaches at home. Assessment: Acute ischemic stroke s/p TNK Hypertension Headache COPD BPH Plan: -Admit to MICU -Goal SBP <180 -Plan for MRI brain -TTE ordered -PT/OT/PLUMBER'S ASSISTANT evals -Resume home medications as appropriate Total critical care time for this patient with life-threatening unstable organ failure, including direct patient contact, management of life support systems, review of data including imaging and labs, and discussions with other team members and physicians at least 33 minutes so far today, excluding procedures. [facility] 06-26-2023 History and physical note Images from the original note were not included. [facility] Critical Care Medicine [facility] MICU Initial History and Physical Name: Hanna Herrmann : 1960(63 y.o.) Date: 06/26/23 Attending: Dr. Hanna Milian Subjective: Chief Complaint: Stroke HPI: Hanna Herrmann is a 63 y.o. male with PMHx partial colon resection, BPH on flomax that presented to [facility] on 06/26/2023 from [place] for stroke with initial NIH of 6 and deficits including facial weakness/R sided droop, dysarthria, and right hemiparesis. He was given TNK and transported to [facility] for continued monitoring with NIH reportedly improving to 3. On arrival, vitals show hypertension with SBPs in 150s. Labs are pending. Imaging disks were provided from [facility]. NIH improved further to 1 for facial weakness (mild). He is otherwise asymptomatic. He denies other medications save for Flomax. Review of Systems: Review of Systems Respiratory: Negative for cough, chest tightness, shortness of breath and wheezing. Cardiovascular: Negative for chest pain. Gastrointestinal: Negative for abdominal pain, blood in stool, constipation, diarrhea, nausea and vomiting. Musculoskeletal: Negative for gait problem and joint swelling. Neurological: Positive for facial asymmetry (Very mild). Negative for dizziness, tremors, speech difficulty, weakness, light-headedness, numbness and headaches. Past Medical History: History reviewed. No pertinent past medical history. Past Surgical History: History reviewed. No pertinent surgical history. Family History: No family history on file. Social History: Allergies: No Known Allergies Home Medications: No current outpatient medications Objective: Vitals: BP (!) 143/89 Pulse 59 Temp 36.8 C (98.3 F) (Oral) Resp 15 Ht 5' 9 (1.753 m) Wt 146 lb (66.2 kg) SpO2 98% BMI 21.56 kg/m Oxygen Delivery: I/O: No intake or output data in the 24 hours ending 06/26/23415 Physical Exam: Constitutional: General Appearance [x]WDWN []Obese []Cachectic []Thin []Ill Eyes: Inspection of Pupils/Irises Pupils round and react: [x]Yes 3 mm []No Sclera: []Icteric [x]Non-Icteric Inspection of Conjunctiva/Lids Conjunctiva: []Injected [x]Non-Injected Lids: [x]Intact []Lesion Present ENT/Mouth: External Inspection of ears/nose [x] Normal [] Scar/Lesion/Mass Inspection of teeth/lips/gums Dentition: [x][place] Teeth []Dentures Lips/Gums: [x]Intact []Lesion Present Mucosa: [x][place] [x]Moist []Dry Neck: External Appearance Overall Appearance: [x]Normal []Lesion/Mass/Crepitus Present Trachea midline: []Yes []No Thyroid []Normal []Enlarged []Tender []Mass []Absent Respiratory: Respiratory effort []Labored []Non-Labored [] Mechanically-Ventilated Auscultation [x]Clear []Crackles []Wheezes [][place] Cardiovascular: Auscultation Rate: [x]Regular []Irregular []Tachycardia []Bradycardia Rhythm: [x]Regular []Irregular Murmur: []Present [x]Absent Extremities Peripheral Edema: []Present [x]Absent Varicosities: []Present [x]Absent Gastrointestinal: Abdomen Palpation: [x]Soft []Firm []Tender [x]Non-Tender []Distended [x]Non-distended Mass: []Present []Absent Bowel Sounds: []Present []Absent Hernia: []Present []Absent Liver/Spleen: []Hepatosplenomegaly []Organomegaly Absent Musculoskeletal: Inspection of Digits and Nails Cyanosis: []Present [x]Absent Clubbing: []Present [x]Absent Ischemia: []Present [x]Absent Infection: []Present [x]Absent Extremities RUBIO Equally: Except ([]RUE []RLE []LUE []LLE) Strength/Tone: Intact and Normal ([]RUE []RLE []LUE []LLE) Skin: Inspection [x]Normal []Rash []Lesion []Ulcer Palpation []Warm []Cool []Dry []Clammy []Nodules []Induration []Skin-tightening Cap-Refill: [] <3 sec [] >3 seconds (delayed) Neurologic: GCS EYE: 4 - Opens spontaneously GCS MOTOR: 6 - Obeys commands for movement GCS VERBAL: 5 - Oriented to person, place, time Total GCS: 15 [x] Sensation grossly intact (resolved w/ TNK) Psych: Mental Status Alert: [x]Yes [] No Oriented: []x0 []X1 []X2 [x]x3 Mood/Affect [x]Normal []Flat []Agitated []Depressed []Anxious []Calm []Sedated []NAD Laboratory Tests: Recent Results (from the past 24 hour(s)) POCT glucose meter Collection Time: 06/26/23 3:40 AM Result Value Ref Range Glucose 115 (H) 70 - 100 mg/dL Lipid panel: No results found for: CHOL , HDL , LDL , TRIG Endo profile: No results found for: HGBA1C , TSH , FREET4 , OCNSXSNH69 , VITD25 , PSA Microbiology: Cultures and gram-stain: No results found for: BLOODCX , URINECX , RESPCULT , CULTURE MRSA by PCR: No results found for: STAPHAUREUS , MECA COVID-19 & Respiratory PCR Panel: No results found for: SARSCOV2 , ADENOVIRUS , CORONAHKU1 , ENAPXWSH60 , CPFUPR184S , UJHMOASU80 , HUMANMETAPNE , RHINOENTERO , INFLUENZAA , INFLUENZAB , PARIN1 , PARIN2 , PARIN3 , PARIN4 , RSV , BORDETELLAPE , BORDETELLAPA , CHLAMYDPNEU , MYCOPLASMAPN Pneumonia PCR Panel: NA Urine Antigens: No results found for: LEGURQUAL , STREPPNEUMON Imaging: No results found for this or any previous visit from the past 365 days. Assessment and Plan: Principal Problem: Stroke determined by clinical assessment (HCC) Assessment: Stroke s/p TNK, etiology to be determined Hypertension BPH Plan: Admit to MICU, plan to initiate stroke workup w/ MRI w/o contrast, TTE SBP < 180, PRN labetalol/hydralazine available at this time Avoid antiplatelet for first 24 hours, strict bedret for 24 hours PT/OT/speech therapy for swallow eval Hypoglycemia protocol, HbA1c, lipid panel, TSH checks Daily CMP, CBC, replete electrolytes PRN Continue home Flomax Goals of Care: Full Code GI Prophylaxis: Pantoprazole IV DVT Prophylaxis: SCDs Diet: NPO BMI Classification: Body mass index is 21.56 kg/m . Disposition: Admit to MICU. Critical Care Time: 60 minutes Total critical care time caring for this patient with life threatening, unstable organ failure, including direct patient contact, management of life support systems, review of data including imaging and labs, discussions with other team members and physicians, excluding procedures. Associated attestation - Hanna Milian DO - 06/26/2023 8:11 AM EST I have personally performed a [id number] diagnostic evaluation on this patient on date of service 06/26/2023. History, labs, imaging studies, and electronic medical record have been reviewed by me. This note documented by the [x]supervisor melt house []SHALONDA reflects my history, exam, and medical decision making. I have reviewed and agree with the care plan. Changes were made in the orders as necessary. ROS documentation was reviewed and negative unless otherwise stated in HPI. Additional pertinent interval history, ROS, and physical exam findings: Mr Herrmann is a 63 year old male who presented to [facility] ED with complaint of right hemiparesis, right facial droop and dysarthria. Given TNK on arrival and transferred to [facility] for further evaluation. On arrival patient only with mild facial weakness. Patient is awake and alert. Hemodynamically stable. Does report headache stating that he has history of such and if he is unable to take medication for such it will progress into severe migraine. Reports taking Excedrin for headaches at home. Assessment: Acute ischemic stroke s/p TNK Hypertension Headache COPD BPH Plan: -Admit to MICU -Goal SBP <180 -Plan for MRI brain -TTE ordered -PT/OT/PLUMBER'S ASSISTANT evals -Resume home medications as appropriate Total critical care time for this patient with life-threatening unstable organ failure, including direct patient contact, management of life support systems, review of data including imaging and labs, and discussions with other team members and physicians at least 33 minutes so far today, excluding procedures. documented in this encounter [facility] 06-26-2023 Emergency department Note Emergency Department Encounter [facility] EMERGENCY DEPT Patient: Hanna Herrmann : 1960 Date of Evaluation: 06/26/2023 ED Supervising Physician: Ed Marroquin DO I personally evaluated Hanna Herrmann and made/approved the management plan and take responsibility for the patient management. This will serve as my Supervisory note and shared attestation. I did perform a substantive portion of the visit including all aspects of the Medical Decision Making. I wore appropriate PPE for the entirety of this encounter. In brief, Hanna Herrmann is a 63 y.o. that presents to the emergency department after being initially evaluated at outside hospital with chief complaint of facial droop and extremity weakness. Concern for acute CVA at outside hospital. Stroke team was activated. TNK was also given. Initial NIH was 3. Patient at this time states he feels fine. Denies any headache or vision changes. Focused exam: Alert and oriented x 3. Mild right-sided facial droop. No drift of upper or lower extremities. No dysarthria or aphasia. No respiratory distress. Brief ED course/MDM: Patient evaluated as a stroke team in the resuscitation bay. He is hemodynamically stable. Blood pressure stable. His NIH on repeat exam has decreased to 1. Patient states he is feeling well. Stroke neurologist was able to remotely assess the patient as well. Okay for admission to T2 ICU. All diagnostic, treatment, and disposition decisions were made by myself in conjunction with the Resident. I also supervised johnson portions of any procedures performed by the Resident. For all further details of the patient's emergency department visit, please see their documentation. (Comment: Please note this report has been produced using speech recognition software and may contain errors related to that system including errors in grammar, punctuation, and spelling, as well as words and phrases that may be inappropriate. If there are any questions or concerns please feel free to contact the dictating provider for clarification.) Ed Marroquin DO Acute Care [facility]. Ed Marroquin DO 06/26/23 0402 EMERGENCY DEPARTMENT ENCOUNTER Pt Name: Hanna Herrmann Birthdate 1960 Date of evaluation: 06/26/2023 ED Provider: Eber Davila MD CHIEF COMPLAINT Chief Complaint Patient presents with Cerebrovascular Accident Pt arrived by [facility] from [facility] c/o stroke. LKW 2330 with sudden onset facial droop, dysarthria, and right sided weakness. Pt taken to local hospital and TNK administered at 0045. Initial NIH 6. Stroke team activated at [facility] per Dr. Garcia. HISTORY OF PRESENT ILLNESS (Location/Symptom, Timing/Onset, Context/Setting, Quality, Duration, Modifying Factors, Severity) Note limiting factors. I wore appropriate PPE for the entirety of this encounter. HPI Hanna Herrmann is a 63 y.o. male who presents to the emergency department as a transfer by EMS from [facility] for stroke. I did speak with initial ED provider at outside hospital prior to patient being transferred to [facility] ED. Last known well was 2330 with sudden onset of facial droop, dysarthria, and right-sided weakness. Initial NIH score of 6. ED provider at outside hospital did consult stroke neurology team, Dr. Garcia, and administered TNK at 0045. Per EMS report, before being transported to [facility] ED, patient's NIH score had improved to 3. Here in the ED, patient NIH score has now improved to 1 for facial droop only. Nursing Notes were reviewed. Limitations to history: None Outside historians: EMS REVIEW OF SYSTEMS Review of Systems As noted in HPI. PAST MEDICAL HISTORY Past Medical History: Diagnosis Date BPH (benign prostatic hyperplasia) COPD (chronic obstructive pulmonary disease) (HCC) Emphysema lung (HCC) HTN (hypertension) SURGICAL HISTORY History reviewed. No pertinent surgical history. CURRENT MEDICATIONS There are no discharge medications for this patient. ALLERGIES No Known Allergies FAMILY HISTORY No family history on file. SOCIAL HISTORY Social History Socioeconomic History Marital status: Unknown Tobacco Use Smoking status: Every Day Packs/day: 0.75 Years: 47.00 Additional pack years: 0.00 Total pack years: 35.25 Types: Cigarettes Smokeless tobacco: Never Vaping Use Vaping Use: Every day Substances: THC Substance and Sexual Activity Alcohol use: Defer Drug use: Yes Types: Marijuana Comment: uses every day Sexual activity: Defer Social Determinants of Health Transportation Needs: Patient Declined (06/26/2023) PRAPARE - Transportation Lack of Transportation (Medical): Patient declined Lack of Transportation (Non-Medical): Patient declined Intimate Partner Violence: Patient Declined (06/26/2023) Humiliation, Afraid, Rape, and Kick questionnaire Fear of Current or Ex-Partner: Patient declined Emotionally Abused: Patient declined Physically Abused: Patient declined Sexually Abused: Patient declined Housing Stability: Patient Declined (06/26/2023) Housing Stability Vital Sign Unable to Pay for Housing in the Last Year: Patient declined Unstable Housing in the Last Year: Patient declined SCREENINGS [place] Coma Scale Best Eye Response: Spontaneous Best Verbal Response: Oriented Best Motor Response: Follows commands [place] Coma Scale Score: 15 NIH Stroke Scale 1A. Level of Consciousness: Alert, Keenly Responsive 1B. Ask Month and Age: Both Questions Right 1C. Blink Eyes & Squeeze Hands: Performs Both Tasks 2. Best Gaze: Normal 3. Visual: No Visual Loss 4. Facial Palsy: Normal Symmetrical Movements 5A. Motor - Left Arm: No Drift 5B. Motor - Right Arm: No Drift 6A. Motor - Left Leg: No Drift 6B. Motor - Right Leg: No Drift 7. Limb Ataxia: Absent 8. Sensory Loss: Normal 9. Best Language: No Aphasia 10. Dysarthria: Normal 11. Extinction and Inattention: No Abnormality NIH Stroke Scale: 0 PHYSICAL EXAM ED Triage Vitals [06/26/23 0339] Temp Heart Rate Resp BP -- 72 19 (!) 145/97 SpO2 Temp src Heart Rate Source Patient Position 99 % -- Monitor Lying BP Location FiO2 (%) -- -- Physical Exam Vitals and nursing note reviewed. Constitutional: General: He is not in acute distress. HENT: Head: Normocephalic and atraumatic. Eyes: Extraocular Movements: Extraocular movements intact. Pupils: Pupils are equal, round, and reactive to light. Cardiovascular: Rate and Rhythm: Normal rate and regular rhythm. Pulses: Normal pulses. Pulmonary: Effort: Pulmonary effort is normal. No respiratory distress. Breath sounds: Normal breath sounds. Abdominal: General: There is no distension. Palpations: Abdomen is soft. Musculoskeletal: General: Normal range of motion. Skin: General: Skin is warm and dry. Neurological: Mental Status: He is alert and oriented to person, place, and time. Comments: NIH 1 for facial droop Psychiatric: Mood and Affect: Mood normal. DIAGNOSTIC RESULTS EKG: If performed, reviewed by me with my interpretation noted below in [facility]. Refer to [facility] for official interpretation. RADIOLOGY: Refer to [facility] below for my independent interpretation. Interpretation per the Radiologist below, if available at the time of this note: CT head wo IV contrast Final Result No acute brain process identified. Report Dictated on Electronically Signed By: Melvin Zheng MD Electronically Signed Date/Time: 06/27/2023 6:14 AM EST MR brain wo contrast Final Result 1. No mass, hemorrhage or infarction. 2. Scattered white matter lesions, which are nonspecific, but most commonly seen with changes of chronic small vessel ischemia. Alternatively, several of these lesions could be seen with demyelination. Correlate clinically. Report Dictated on Electronically Signed By: Davin Newman MD Electronically Signed Date/Time: 06/26/2023 5:28 PM EST LABS: Labs Reviewed LIPID PANEL - Abnormal Result Value TRIGLYCERIDE 81 CHOLESTEROL 191 LOW DENSITY LIPOPROTEIN 135 (*) HDL CHOLESTEROL 40 CHOL/HDL 5 COMPREHENSIVE METABOLIC PANEL - Abnormal SODIUM 136 POTASSIUM 3.6 CHLORIDE 107 CARBON DIOXIDE 24 ANION GAP 5 UREA NITROGEN 20 CREATININE 0.79 GLUCOSE 83 CALCIUM 8.5 AST (SGOT) 33 ALT 19 ALKALINE PHOSPHATASE 77 ALBUMIN 3.3 (*) BILIRUBIN, TOTAL 0.4 TOTAL PROTEIN 6.3 eGFR >90.0 CBC WITH AUTO DIFFERENTIAL - Abnormal Auto WBC 6.1 RBC 4.30 (*) Hemoglobin 13.4 Hematocrit 39.5 (*) MCV 91.8 MCH 31.1 MCHC 33.9 RDW 12.9 Platelets 286 MPV 7.4 nRBC 0.1 Neutrophils Relative 44.5 Lymphocytes Relative 39.9 Monocytes Relative 7.1 Eosinophils Relative 6.9 (*) Basophils Relative 1.6 Neutrophils Absolute 2.7 Lymphocytes Absolute 2.4 Monocytes Absolute 0.4 Eosinophils Absolute 0.4 Basophils Absolute 0.1 COMPREHENSIVE METABOLIC PANEL - Abnormal SODIUM 136 POTASSIUM 3.9 CHLORIDE 105 CARBON DIOXIDE 26 ANION GAP 6 UREA NITROGEN 27 (*) CREATININE 1.01 GLUCOSE 111 (*) CALCIUM 8.9 AST (SGOT) 32 ALT 18 ALKALINE PHOSPHATASE 89 ALBUMIN 3.5 BILIRUBIN, TOTAL 0.4 TOTAL PROTEIN 6.7 eGFR 82.5 CBC WITH AUTO DIFFERENTIAL - Abnormal Auto WBC 7.7 RBC 4.61 Hemoglobin 14.1 Hematocrit 42.5 MCV 92.0 MCH 30.7 MCHC 33.3 RDW 13.0 Platelets 287 MPV 7.0 (*) nRBC 0.0 Neutrophils Relative 51.1 Lymphocytes Relative 38.2 Monocytes Relative 6.7 Eosinophils Relative 3.8 Basophils Relative 0.2 Neutrophils Absolute 4.0 Lymphocytes Absolute 3.0 Monocytes Absolute 0.5 Eosinophils Absolute 0.3 Basophils Absolute 0.0 POCT GLUCOSE METER UNSOLICITED RESULTS - Abnormal Glucose 115 (*) Narrative: Performed by: [facility], [address] [place] [address] CLIA ID: [id number] TROPONIN, WITH SERIAL REFLEX - Normal TROPONIN I <0.012 Narrative: Patients with high levels of Biotin oral intake (ie >5 mg/day) may have falsely decreased Troponin levels. TROPONIN I - Normal TROPONIN I <0.012 Narrative: Patients with high levels of Biotin oral intake (ie >5 mg/day) may have falsely decreased Troponin levels. TROPONIN I - Normal TROPONIN I <0.012 Narrative: Patients with high levels of Biotin oral intake (ie >5 mg/day) may have falsely decreased Troponin levels. HEMOGLOBIN A1C HEMOGLOBIN A1C 5.4 ESTIMATED AVERAGE GLUCOSE 108 All other labs were within normal range or not returned at time of this dictation. EMERGENCY DEPARTMENT COURSE and DIFFERENTIAL DIAGNOSIS/MDM: Vitals: Vitals: 06/27/23 0400 06/27/23 0500 06/27/23 0600 06/27/23 0700 BP: 118/68 (!) 148/81 123/75 131/74 BP Location: Right arm Patient Position: Lying Pulse: 58 57 53 56 Resp: 14 15 14 13 Temp: 36.7 C (98 F) TempSrc: Temporal SpO2: 96% 99% 95% 97% Weight: Height: Clinical Impression: The patient presented with chief complaint as above. Patient's vital signs were reviewed by me. Pertinent history and physical exam as above. Nursing notes were reviewed by me. Patient was immediately met upon arrival to ED by stroke activation team. Patient was initially assessed for stabilization. Assessment was performed in conjunction with stroke neuro team, Dr. Garcia. Please refer to their separate note for further details. Patient's blood pressure has remained stable with in appropriate BP goals status post TNK administration. Per discussion with stroke neuro team, patient does not require any further emergent imaging at this time. Patient will be admitted to ICU for post TNK monitoring and further stroke management. Patient admitted in stable condition. Diagnoses as of 06/27/23 0731 Stroke determined by clinical assessment ([facility]) External records reviewed: EMS run sheet Chronic conditions impacting care: Hypertension and COPD Social determinants of health affecting care: Diagnostics independently interpreted by me: As above ED Medications managed: Medications sodium chloride 0.9 % infusion (50 mL/hr IntraVENous New Bag 06/26/23 0400) acetaminophen (Tylenol) tablet 650 mg (has no administration in time range) Or acetaminophen (Tylenol) suppository 650 mg (has no administration in time range) ondansetron ODT (Zofran-ODT) disintegrating tablet 4 mg (has no administration in time range) Or ondansetron (Zofran) injection 4 mg (has no administration in time range) polyethylene glycol (PEG) 3350 (Miralax) packet 17 g (has no administration in time range) rosuvastatin (Crestor) tablet 20 mg (20 mg Oral Given 06/26/23 08) pantoprazole (ProtoNix) EC tablet 40 mg (40 mg Oral Given 06/26/232014) Or pantoprazole (ProtoNix) 40 mg in sodium chloride (PF) 0.9 % 10 mL injection ( IntraVENous See Alternative 06/26/232014) glucose oral gel 15 g (has no administration in time range) dextrose 50 % solution 12.5 g (has no administration in time range) glucagon (human recombinant) injection 1 mg (has no administration in time range) dextrose 5 % infusion (has no administration in time range) labetalol (Normodyne,Trandate) injection 10 mg (has no administration in time range) Or hydrALAZINE (Apresoline) injection 10 mg (has no administration in time range) tamsulosin (Flomax) 24 hr capsule 0.4 mg (0.4 mg Oral Given 06/26/23827) aspirin EC tablet 81 mg (has no administration in time range) clopidogrel (Plavix) tablet 75 mg (has no administration in time range) enoxaparin (Lovenox) syringe 40 mg (has no administration in time range) dexAMETHasone (Decadron) injection 4 mg (4 mg IntraVENous Given 06/26/23827) prochlorperazine (Compazine) injection 5 mg (5 mg IntraVENous Given 06/26/23827) Response to therapies provided: As above Diagnostics & Treatments/Interventions considered: As above Management discussions with other Clinicians: Admitting team ICU and Workforce Development Program Director Stroke neuro PROCEDURES: Unless otherwise noted below, none. Procedures FINAL IMPRESSION 1. Stroke determined by clinical assessment ([facility]) DISPOSITION Admit 06/26/2023 03:48:26 AM PATIENT REFERRED TO: No follow-up provider specified. DISCHARGE MEDICATIONS: There are no discharge medications for this patient. (Comment: Please note this report has been produced using speech recognition software and may contain errors related to that system including errors in grammar, punctuation, and spelling, as well as words and phrases that may be inappropriate. If there are any questions or concerns please feel free to contact the dictating provider for clarification.) Eber Davila MD (electronically signed) Emergency Medicine Resident Eber Davila MD Resident 06/27/23 0737 documented in this encounter [facility] 06-26-2023 Physician Emergency department Note Emergency Department Encounter [facility] EMERGENCY DEPT Patient: Hanna Herrmann : 1960 Date of Evaluation: 06/26/2023 ED Supervising Physician: Ed Marroquin DO I personally evaluated Hanna Herrmann and made/approved the management plan and take responsibility for the patient management. This will serve as my Supervisory note and shared attestation. I did perform a substantive portion of the visit including all aspects of the Medical Decision Making. I wore appropriate PPE for the entirety of this encounter. In brief, Hanna Herrmann is a 63 y.o. that presents to the emergency department after being initially evaluated at outside hospital with chief complaint of facial droop and extremity weakness. Concern for acute CVA at outside hospital. Stroke team was activated. TNK was also given. Initial NIH was 3. Patient at this time states he feels fine. Denies any headache or vision changes. Focused exam: Alert and oriented x 3. Mild right-sided facial droop. No drift of upper or lower extremities. No dysarthria or aphasia. No respiratory distress. Brief ED course/MDM: Patient evaluated as a stroke team in the resuscitation bay. He is hemodynamically stable. Blood pressure stable. His NIH on repeat exam has decreased to 1. Patient states he is feeling well. Stroke neurologist was able to remotely assess the patient as well. Okay for admission to T2 ICU. All diagnostic, treatment, and disposition decisions were made by myself in conjunction with the Resident. I also supervised johnson portions of any procedures performed by the Resident. For all further details of the patient's emergency department visit, please see their documentation. (Comment: Please note this report has been produced using speech recognition software and may contain errors related to that system including errors in grammar, punctuation, and spelling, as well as words and phrases that may be inappropriate. If there are any questions or concerns please feel free to contact the dictating provider for clarification.) Ed Marroquin DO Acute Care [employer]. Ed Marroquin DO 06/26/23 0402 [employer] Phone: 06-26-2023 Physician Emergency department Note EMERGENCY DEPARTMENT ENCOUNTER Pt Name: Hanna Herrmann Birthdate 1960 Date of evaluation: 06/26/2023 ED Provider: Eber Davila MD CHIEF COMPLAINT Chief Complaint Patient presents with Cerebrovascular Accident Pt arrived by [facility] from [facility] c/o stroke. LKW 2330 with sudden onset facial droop, dysarthria, and right sided weakness. Pt taken to local hospital and TNK administered at 0045. Initial NIH 6. Stroke team activated at [facility] per Dr. Garcia. HISTORY OF PRESENT ILLNESS (Location/Symptom, Timing/Onset, Context/Setting, Quality, Duration, Modifying Factors, Severity) Note limiting factors. I wore appropriate PPE for the entirety of this encounter. HPI Hanna Herrmann is a 63 y.o. male who presents to the emergency department as a transfer by EMS from [facility] for stroke. I did speak with initial ED provider [facility] prior to patient being transferred to [facility] ED. Last known well was 2329 with sudden onset of facial droop, dysarthria, and right-sided weakness. Initial NIH score of 6. ED provider at outside [facility] did consult stroke neurology team, Dr. Garcia, and administered TNK at 0045. Per EMS report, before being transported to [facility] ED, patient's NIH score had improved to 3. Here in the ED, patient NIH score has now improved to 1 for facial droop only. Nursing Notes were reviewed. Limitations to history: None Outside historians: EMS REVIEW OF SYSTEMS Review of Systems As noted in HPI. PAST MEDICAL HISTORY Past Medical History: Diagnosis Date BPH (benign prostatic hyperplasia) COPD (chronic obstructive pulmonary disease) (HCC) Emphysema lung (HCC) HTN (hypertension) SURGICAL HISTORY History reviewed. No pertinent surgical history. CURRENT MEDICATIONS There are no discharge medications for this patient. ALLERGIES No Known Allergies FAMILY HISTORY No family history on file. SOCIAL HISTORY Social History Socioeconomic History Marital status: Unknown Tobacco Use Smoking status: Every Day Packs/day: 0.75 Years: 47.00 Additional pack years: 0.00 Total pack years: 35.25 Types: Cigarettes Smokeless tobacco: Never Vaping Use Vaping Use: Every day Substances: THC Substance and Sexual Activity Alcohol use: Defer Drug use: Yes Types: Marijuana Comment: uses every day Sexual activity: Defer Social Determinants of Health Transportation Needs: Patient Declined (06/26/2023) PRAPARE - Transportation Lack of Transportation (Medical): Patient declined Lack of Transportation (Non-Medical): Patient declined Intimate Partner Violence: Patient Declined (06/26/2023) Humiliation, Afraid, Rape, and Kick questionnaire Fear of Current or Ex-Partner: Patient declined Emotionally Abused: Patient declined Physically Abused: Patient declined Sexually Abused: Patient declined Housing Stability: Patient Declined (06/26/2023) Housing Stability Vital Sign Unable to Pay for Housing in the Last Year: Patient declined Unstable Housing in the Last Year: Patient declined SCREENINGS [place] Coma Scale Best Eye Response: Spontaneous Best Verbal Response: Oriented Best Motor Response: Follows commands [place] Coma Scale Score: 15 NIH Stroke Scale 1A. Level of Consciousness: Alert, Keenly Responsive 1B. Ask Month and Age: Both Questions Right 1C. Blink Eyes & Squeeze Hands: Performs Both Tasks 2. Best Gaze: Normal 3. Visual: No Visual Loss 4. Facial Palsy: Normal Symmetrical Movements 5A. Motor - Left Arm: No Drift 5B. Motor - Right Arm: No Drift 6A. Motor - Left Leg: No Drift 6B. Motor - Right Leg: No Drift 7. Limb Ataxia: Absent 8. Sensory Loss: Normal 9. Best Language: No Aphasia 10. Dysarthria: Normal 11. Extinction and Inattention: No Abnormality NIH Stroke Scale: 0 PHYSICAL EXAM ED Triage Vitals [06/26/23 0339] Temp Heart Rate Resp BP -- 72 19 (!) 145/97 SpO2 Temp src Heart Rate Source Patient Position 99 % -- Monitor Lying BP Location FiO2 (%) -- -- Physical Exam Vitals and nursing note reviewed. Constitutional: General: He is not in acute distress. HENT: Head: Normocephalic and atraumatic. Eyes: Extraocular Movements: Extraocular movements intact. Pupils: Pupils are equal, round, and reactive to light. Cardiovascular: Rate and Rhythm: Normal rate and regular rhythm. Pulses: Normal pulses. Pulmonary: Effort: Pulmonary effort is normal. No respiratory distress. Breath sounds: Normal breath sounds. Abdominal: General: There is no distension. Palpations: Abdomen is soft. Musculoskeletal: General: Normal range of motion. Skin: General: Skin is warm and dry. Neurological: Mental Status: He is alert and oriented to person, place, and time. Comments: NIH 1 for facial droop Psychiatric: Mood and Affect: Mood normal. DIAGNOSTIC RESULTS EKG: If performed, reviewed by me with my interpretation noted below in [facility]. Refer to Ep[facility] for official interpretation. RADIOLOGY: Refer to MDM below for my independent interpretation. Interpretation per the Radiologist below, if available at the time of this note: CT head wo IV contrast Final Result No acute brain process identified. Report Dictated on Electronically Signed By: Melvin Zheng MD Electronically Signed Date/Time: 06/27/2023 6:14 AM EST MR brain wo contrast Final Result 1. No mass, hemorrhage or infarction. 2. Scattered white matter lesions, which are nonspecific, but most commonly seen with changes of chronic small vessel ischemia. Alternatively, several of these lesions could be seen with demyelination. Correlate clinically. Report Dictated on Electronically Signed By: Davin Newman MD Electronically Signed Date/Time: 06/26/2023 5:28 PM EST LABS: Labs Reviewed LIPID PANEL - Abnormal Result Value TRIGLYCERIDE 81 CHOLESTEROL 191 LOW DENSITY LIPOPROTEIN 135 (*) HDL CHOLESTEROL 40 CHOL/HDL 5 COMPREHENSIVE METABOLIC PANEL - Abnormal SODIUM 136 POTASSIUM 3.6 CHLORIDE 107 CARBON DIOXIDE 24 ANION GAP 5 UREA NITROGEN 20 CREATININE 0.79 GLUCOSE 83 CALCIUM 8.5 AST (SGOT) 33 ALT 19 ALKALINE PHOSPHATASE 77 ALBUMIN 3.3 (*) BILIRUBIN, TOTAL 0.4 TOTAL PROTEIN 6.3 eGFR >90.0 CBC WITH AUTO DIFFERENTIAL - Abnormal Auto WBC 6.1 RBC 4.30 (*) Hemoglobin 13.4 Hematocrit 39.5 (*) MCV 91.8 MCH 31.1 MCHC 33.9 RDW 12.9 Platelets 286 MPV 7.4 nRBC 0.1 Neutrophils Relative 44.5 Lymphocytes Relative 39.9 Monocytes Relative 7.1 Eosinophils Relative 6.9 (*) Basophils Relative 1.6 Neutrophils Absolute 2.7 Lymphocytes Absolute 2.4 Monocytes Absolute 0.4 Eosinophils Absolute 0.4 Basophils Absolute 0.1 COMPREHENSIVE METABOLIC PANEL - Abnormal SODIUM 136 POTASSIUM 3.9 CHLORIDE 105 CARBON DIOXIDE 26 ANION GAP 6 UREA NITROGEN 27 (*) CREATININE 1.01 GLUCOSE 111 (*) CALCIUM 8.9 AST (SGOT) 32 ALT 18 ALKALINE PHOSPHATASE 89 ALBUMIN 3.5 BILIRUBIN, TOTAL 0.4 TOTAL PROTEIN 6.7 eGFR 82.5 CBC WITH AUTO DIFFERENTIAL - Abnormal Auto WBC 7.7 RBC 4.61 Hemoglobin 14.1 Hematocrit 42.5 MCV 92.0 MCH 30.7 MCHC 33.3 RDW 13.0 Platelets 287 MPV 7.0 (*) nRBC 0.0 Neutrophils Relative 51.1 Lymphocytes Relative 38.2 Monocytes Relative 6.7 Eosinophils Relative 3.8 Basophils Relative 0.2 Neutrophils Absolute 4.0 Lymphocytes Absolute 3.0 Monocytes Absolute 0.5 Eosinophils Absolute 0.3 Basophils Absolute 0.0 POCT GLUCOSE METER UNSOLICITED RESULTS - Abnormal Glucose 115 (*) Narrative: Performed by: [facility], [address] [place] [address] CLIA ID: [id number] TROPONIN, WITH SERIAL REFLEX - Normal TROPONIN I <0.012 Narrative: Patients with high levels of Biotin oral intake (ie >5 mg/day) may have falsely decreased Troponin levels. TROPONIN I - Normal TROPONIN I <0.012 Narrative: Patients with high levels of Biotin oral intake (ie >5 mg/day) may have falsely decreased Troponin levels. TROPONIN I - Normal TROPONIN I <0.012 Narrative: Patients with high levels of Biotin oral intake (ie >5 mg/day) may have falsely decreased Troponin levels. HEMOGLOBIN A1C HEMOGLOBIN A1C 5.4 ESTIMATED AVERAGE GLUCOSE 108 All other labs were within normal range or not returned at time of this dictation. EMERGENCY DEPARTMENT COURSE and DIFFERENTIAL DIAGNOSIS/MDM: Vitals: Vitals: 06/27/23 0400 06/27/23 0500 06/27/23 0600 06/27/23 0700 BP: 118/68 (!) 148/81 123/75 131/74 BP Location: Right arm Patient Position: Lying Pulse: 58 57 53 56 Resp: 14 15 14 13 Temp: 36.7 C (98 F) TempSrc: Temporal SpO2: 96% 99% 95% 97% Weight: Height: Clinical Impression: The patient presented with chief complaint as above. Patient's vital signs were reviewed by me. Pertinent history and physical exam as above. Nursing notes were reviewed by me. Patient was immediately met upon arrival to ED by stroke activation team. Patient was initially assessed for stabilization. Assessment was performed in conjunction with stroke neuro team, Dr. Garcia. Please refer to their separate note for further details. Patient's blood pressure has remained stable with in appropriate BP goals status post TNK administration. Per discussion with stroke neuro team, patient does not require any further emergent imaging at this time. Patient will be admitted to ICU for post TNK monitoring and further stroke management. Patient admitted in stable condition. Diagnoses as of 06/27/23 0731 Stroke determined by clinical assessment ([facility]) External records reviewed: EMS run sheet Chronic conditions impacting care: Hypertension and COPD Social determinants of health affecting care: Diagnostics independently interpreted by me: As above ED Medications managed: Medications sodium chloride 0.9 % infusion (50 mL/hr IntraVENous New Bag 06/26/23 0400) acetaminophen (Tylenol) tablet 650 mg (has no administration in time range) Or acetaminophen (Tylenol) suppository 650 mg (has no administration in time range) ondansetron ODT (Zofran-ODT) disintegrating tablet 4 mg (has no administration in time range) Or ondansetron (Zofran) injection 4 mg (has no administration in time range) polyethylene glycol (PEG) 3350 (Miralax) packet 17 g (has no administration in time range) rosuvastatin (Crestor) tablet 20 mg (20 mg Oral Given 06/26/23827) pantoprazole (ProtoNix) EC tablet 40 mg (40 mg Oral Given 06/26/232014) Or pantoprazole (ProtoNix) 40 mg in sodium chloride (PF) 0.9 % 10 mL injection ( IntraVENous See Alternative 06/26/232014) glucose oral gel 15 g (has no administration in time range) dextrose 50 % solution 12.5 g (has no administration in time range) glucagon (human recombinant) injection 1 mg (has no administration in time range) dextrose 5 % infusion (has no administration in time range) labetalol (Normodyne,Trandate) injection 10 mg (has no administration in time range) Or hydrALAZINE (Apresoline) injection 10 mg (has no administration in time range) tamsulosin (Flomax) 24 hr capsule 0.4 mg (0.4 mg Oral Given 06/26/23827) aspirin EC tablet 81 mg (has no administration in time range) clopidogrel (Plavix) tablet 75 mg (has no administration in time range) enoxaparin (Lovenox) syringe 40 mg (has no administration in time range) dexAMETHasone (Decadron) injection 4 mg (4 mg IntraVENous Given 06/26/23827) prochlorperazine (Compazine) injection 5 mg (5 mg IntraVENous Given 06/26/23827) Response to therapies provided: As above Diagnostics & Treatments/Interventions considered: As above Management discussions with other Clinicians: Admitting team ICU and Workforce Development Program Director Stroke neuro PROCEDURES: Unless otherwise noted below, none. Procedures FINAL IMPRESSION 1. Stroke determined by clinical assessment ([facility]) DISPOSITION Admit 06/26/2023 03:48:26 AM PATIENT REFERRED TO: No follow-up provider specified. DISCHARGE MEDICATIONS: There are no discharge medications for this patient. (Comment: Please note this report has been produced using speech recognition software and may contain errors related to that system including errors in grammar, punctuation, and spelling, as well as words and phrases that may be inappropriate. If there are any questions or concerns please feel free to contact the dictating provider for clarification.) Eber Davila MD (electronically signed) Emergency Medicine Resident Eber Davila MD Resident 06/27/23 0737 [employer] Phone: 06-26-2023 Consult note Formatting of th is note is different from the original. STROKE TEAM NOTE Patient Name: Hanna Herrmann Patient : 1960 Acct: [id number] Date of Admission: (Not on file) Room/Bed: Room/bed info not found PCP: No primary care provider on file. Stroke team; Prehospital activation History of Present Ilness: 63 y.o. patient presented with facial weakness, dysarthria and right sided weakness to [facility]. NIHSS 6 given tenecteplase within the time window and transferred to [facility] 1130pm . NIHSS improved to 1 Onset time: last seen well; 2330 ED arrival: 0333 Stroke teamactivation 0315 NIHSS upon arrival: 1 Current use of anticoagulants: No If on anticoagulants when was last dose:NA Preadmission secondary prevention antiplatelets and statins:No History of AF:NA Contraindications for thrombolytic treatment: Yes Past Medical History: BPH Migraine headaches Past Surgical History: Colectomy Home Medications: Prior to Admission medications Not on File Current Hospital Medications: No current facility-administered medications for this encounter. No current outpatient medications on file. Continuous Infusions: Allergies: Patient has no allergy information on record. Social History: TOBACCO: has no history on file for tobacco use. ETOH: has no history on file for alcohol use. RECREATIONAL DRUG USE: Social History Substance and Sexual Activity Drug Use Not on file FamilyHistory: :. [facility]; :A complete review of system was performed , pertinent positives noted and remainderare negative Review of Systems Physical Examination: No data found. No intake/output data recorded. Visit Vitals BP (!) 145/97 (Patient Position: Lying) Pulse 72 Resp 19 NIHSS 1a Level of consciousness: 0=alert; keenly responsive 1b. LOC questions: 0=Performs both tasks correctly 1c. LOC commands: 1=Performs one task correctly 2. Best Gaze: 0=normal 3. Visual: 0=No visual loss 4. Facial Palsy: 1=Minor paralysis (flattened nasolabial fold, asymmetric on smiling) 5a. Motor left arm: 0=No drift, limb holds 90 (or 45) degrees for full 10 seconds 5b. Motor right arm: 0=No drift, limb holds 90 (or 45) degrees for full 10 seconds 6a. motor left le=No drift, limb holds 90 (or 45) degrees for full 10 seconds 6b Motor right le=No drift, limb holds 90 (or 45) degrees for full 10 seconds 7. Limb Ataxia: 0=Absent 8. Sensory: 0=Normal; no sensory loss 9. Best Language: 0=No aphasia, normal 10. Dysarthria: 0=Normal 11. Neglect 0 12. Distal motor function: 0=Normal Total: 1 Pre-admission Modified [place] Score: 0 _x_ 0 No symptoms at all __ 1 No significant disability despite symptoms; able to carry out all usual duties and activities __ 2 Slight disability; unable to carry out all previous activities, but able to look after own affairs without assistance __ 3 Moderate disability; requiring some help, but able to walk without assistance __ 4 Moderately severe disability; unable to walk without assistance and unable to attend to own bodily needs without assistance __ 5 Severe disability; bedridden, incontinent and requiring constant nursing care and attention Ancillary Data: Labs: No results found for this or any previous visit (from the past 24 hour(s)). No results for input(s): PH , PO2 , PCO2 , HCO3 , O2SAT in the last 72 hours. No lab exists for component: BE No results for input(s): INR in the last 72 hours. Radiology: (None available for review from OSH) ASSESSMENT / PLAN/RECOMMENDATIONS: 63 year old patient with onset of right hemiparesis, dysarthria presented to OSH within window and received IV tenecteplase and then transferred to [facility] for post thrombolytic care. NIHSS improved from 6---> 3---> 1 by the time patient arrived to [facility]. - Etiology: cryptogenic so far, suspect small vessel disease- pure motor stroke, may close be pontine stroke- clumsy hand dysarthria - Post tenecteplase protocol- Admit to T2-ICU - SBP <180 mmHg, DBP <105 mmHg - Complete bedrest x 24 hours - No antiplatelets/antithrombotics in first 24 hours after tenecteplase - NPO until swallow evaluation - Avoid invasive lines if able - Repeat CT head in 24 hours post TNK unless MRI Brain is performed - MRI brain without contrast - TTE - PT/OT/ST Reason for no use of thrombolytic if applicable: Tenecteplase administered at [facility] prior to arrival Reason if no thrombectomy if applicable: not identified vascular occlusion accesable for intervention I personally spent [x] 35, []50 , [] 70 minutes in critical care time for this neurocritically ill patient who is at high risk for both clinical and neurological decline due to further brain injury, which can occur unpredictably and rapidly cause multi-organ dysfunction. During that time I performed a face to face diagnostic evaluation of this patient reviewing labs, imaging studies and the electronic medical record; as well as counseling/coordinating care and provided discussion regarding diagnostic impressions and the plan of care with the consulting team and patient's family members/surrogate decision makers (in cases where the patient is incapacitated and unable to participate in their own care). Maksim Garcia MD Neurocritical Care Attending Pager: [phone] . [facility] [employer] Phone: 06-26-2023 Consult note Formatting of th is note is different from the original. STROKE TEAM NOTE Patient Name: Hanna Herrmann Patient : 1960 Acct: [id number] Date of Admission: (Not on file) Room/Bed: Room/bed info not found PCP: No primary care provider on file. Stroke team; Prehospital activation History of Present Ilness: 63 y.o. patient presented with facial weakness, dysarthria and right sided weakness to [facility]. NIHSS 6 given tenecteplase within the time window and transferred to [facility] 1130pm . NIHSS improved to 1 Onset time: last seen well; 2330 ED arrival: 0333 Stroke teamactivation 0315 NIHSS upon arrival: 1 Current use of anticoagulants: No If on anticoagulants when was last dose:NA Preadmission secondary prevention antiplatelets and statins:No History of AF:NA Contraindications for thrombolytic treatment: Yes Past Medical History: BPH Migraine headaches Past Surgical History: Colectomy Home Medications: Prior to Admission medications Not on File Current Hospital Medications: No current facility-administered medications for this encounter. No current outpatient medications on file. Continuous Infusions: Allergies: Patient has no allergy information on record. Social History: TOBACCO: has no history on file for tobacco use. ETOH: has no history on file for alcohol use. RECREATIONAL DRUG USE: Social History Substance and Sexual Activity Drug Use Not on file FamilyHistory: :. [facility]; :A complete review of system was performed , pertinent positives noted and remainderare negative Review of Systems Physical Examination: No data found. No intake/output data recorded. Visit Vitals BP (!) 145/97 (Patient Position: Lying) Pulse 72 Resp 19 NIHSS 1a Level of consciousness: 0=alert; keenly responsive 1b. LOC questions: 0=Performs both tasks correctly 1c. LOC commands: 1=Performs one task correctly 2. Best Gaze: 0=normal 3. Visual: 0=No visual loss 4. Facial Palsy: 1=Minor paralysis (flattened nasolabial fold, asymmetric on smiling) 5a. Motor left arm: 0=No drift, limb holds 90 (or 45) degrees for full 10 seconds 5b. Motor right arm: 0=No drift, limb holds 90 (or 45) degrees for full 10 seconds 6a. motor left le=No drift, limb holds 90 (or 45) degrees for full 10 seconds 6b Motor right le=No drift, limb holds 90 (or 45) degrees for full 10 seconds 7. Limb Ataxia: 0=Absent 8. Sensory: 0=Normal; no sensory loss 9. Best Language: 0=No aphasia, normal 10. Dysarthria: 0=Normal 11. Neglect 0 12. Distal motor function: 0=Normal Total: 1 Pre-admission Modified [place] Score: 0 _x_ 0 No symptoms at all __ 1 No significant disability despite symptoms; able to carry out all usual duties and activities __ 2 Slight disability; unable to carry out all previous activities, but able to look after own affairs without assistance __ 3 Moderate disability; requiring some help, but able to walk without assistance __ 4 Moderately severe disability; unable to walk without assistance and unable to attend to own bodily needs without assistance __ 5 Severe disability; bedridden, incontinent and requiring constant nursing care and attention Ancillary Data: Labs: No results found for this or any previous visit (from the past 24 hour(s)). No results for input(s): PH , PO2 , PCO2 , HCO3 , O2SAT in the last 72 hours. No lab exists for component: BE No results for input(s): INR in the last 72 hours. Radiology: (None available for review from OSH) ASSESSMENT / PLAN/RECOMMENDATIONS: 63 year old patient with onset of right hemiparesis, dysarthria presented to OSH within window and received IV tenecteplase and then transferred to [facility] for post thrombolytic care. NIHSS improved from 6---> 3---> 1 by the time patient arrived to [facility]. - Etiology: cryptogenic so far, suspect small vessel disease- pure motor stroke, may close be pontine stroke- clumsy hand dysarthria - Post tenecteplase protocol- Admit to T2-ICU - SBP <180 mmHg, DBP <105 mmHg - Complete bedrest x 24 hours - No antiplatelets/antithrombotics in first 24 hours after tenecteplase - NPO until swallow evaluation - Avoid invasive lines if able - Repeat CT head in 24 hours post TNK unless MRI Brain is performed - MRI brain without contrast - TTE - PT/OT/ST Reason for no use of thrombolytic if applicable: Tenecteplase administered at [facility] prior to arrival Reason if no thrombectomy if applicable: not identified vascular occlusion accesable for intervention I personally spent [x] 35, []50 , [] 70 minutes in critical care time for this neurocritically ill patient who is at high risk for both clinical and neurological decline due to further brain injury, which can occur unpredictably and rapidly cause multi-organ dysfunction. During that time I performed a face to face diagnostic evaluation of this patient reviewing labs, imaging studies and the electronic medical record; as well as counseling/coordinating care and provided discussion regarding diagnostic impressions and the plan of care with the consulting team and patient's family members/surrogate decision makers (in cases where the patient is incapacitated and unable to participate in their own care). Maksim Garcia MD Neurocritical Care Attending Pager: [phone] . documented in this encounter [facility] 07-05-2022 Note . MICRO - Microbiology PROCEDURE: Blood Culture (bacterial) [*1] SOURCE: Blood BODY SITE: COLLECTED DATE/TIME: 07/04/2022 15:32 EST RECEIVED DATE/TIME: 07/04/2022 23:10 EST START DATE/TIME: 07/04/2022 23:11 EST FREE TEXT SOURCE: PRELIMINARY REPORTS Preliminary Report [] Verified Date/Time/Personnel: 07/05/2022 00:00 EST Culture has been received in lab and is no growth to date. Routine cultures are held for 5 days. Performing Locations *1: This test was performed at: [facility], [address] [place] [address], [facility] , [facility] ([place]) documented in this encounter [facility] Summary Purpose Family History No Family History Records FoundNo Family History Records FoundNo Family History Records FoundNo Family History Records FoundNo Family History Records FoundNo Family History Records FoundNo Family History Records Found Advance Directives No Advanced Directives Records FoundLatest Code Status on File Code Status Date Activated Date Inactivated Comments Full Code 06/26/2023 3:55 AM 06/27/2023 3:12 PM Additional Source Comments (unrecognized sect ion and content) No Status Records FoundNo Status Records FoundNo Status Records FoundNo Status Records FoundNo Status Records FoundNo Status Records FoundNo Status Records Found INFORMATION SOURCE (unrecogn ized section and content) DATE CREATED AUTHOR AUTHOR'S ORGANIZ ATION 07/03/2020 [facility] DATE CREATED AUTHOR 'S ORGANIZ ATION 09/19/2021 [facility] [place] DATE CREATED AUTHOR AUTHOR'S ORGANIZ ATION 10/12/2021 [facility] DATE CREATED AUTHOR AUTHOR'S ORGANIZ ATION 07/04/2022 [facility] [place] [facility] ([place]) DATE CREATED AUTHOR AUTHOR'S ORGANIZ ATION 06/26/2023 [facility] DATE CREATED AUTHOR AUTHOR'S ORGANIZ ATION 06/29/2023 [facility] Reason for Visit (unrecogniz ed section and content) Specialty Diagnoses / Procedures Referred By Abbi t Referred To Contact Diagnoses Stroke determined by clinical assessment ([facility]) Stroke Procedures [id number] determined by clinical assessment ([facility] Hanna Milian, DO [address] [facility] [address] [place] [address] [id number] [place] [address] Referral ID Status Reason Start Date Expiration Date Visits Re quested Visits Authorized [id number] 1 Scheduled Active and Recently Administ ered Medications (unrecognized section and content) Continuous Medication Order 06/25/2023 06/26/2023 06/27/2023 sodium chloride 0.9 % infusion (CANCELED) 50 mL/hr, IntraVENous, Continuous, Starting on 06/26/23 at 0400 0400 (New Bag - Provider: Ramsey Sun RN) PRN Medication Order 06/25/2023 06/26/2023 06/27/2023 acetaminophen (Tylenol) suppository 650 mg(Linked Group 2) 650 mg, Rectal, Every 6 hours PRN, mild pain (1-3), fever, For temp greater than 100.4 F (38 C), Starting on 06/26/23 at 0348, Administer if oral route cannot be used. Maximum dose of acetaminophen is 4000 mg from all sources in 24 hours. acetaminophen (Tylenol) tablet 650 mg(Linked Group 2) 650 mg, Oral, Every 6 hours PRN, mild pain (1-3), fever, For temp greater than 100.4 F (38 C), Starting on 06/26/23 at 0348, Maximum dose of acetaminophen is 4000 mg from all sources in 24 hours. dextrose 5 % infusion 100 mL/hr, IntraVENous, PRN, Blood sugar less than 70mg/dL, Starting on 06/26/23 at 0354, Start infusion following administration of dextrose 50% or glucagon. dextrose 50 % solution 12.5 g 12.5 g, IntraVENous, PRN, low blood sugar, Blood glucose less than 70 mg/dL and patient NOT ALERT or NPO., Starting on Tue06/26/23 at 0354, If patient does not respond within 5 minutes, repeat dose x1. Start D5W at 100 mL/hour until ordering provider can be reached. Repeat blood glucose in 15 minutes. If blood glucose is less than 70 mg/dL, repeat treatment and recheck blood glucose in 15 minutes x2. If using Glucostabilizer, dose as instructed per system. glucagon (human recombinant) injection 1 mg 1 mg, IntraMUSCular, PRN, low blood sugar, Blood glucose less than 70 mg/dL and patient NOT ALERT or NPO and does not have IV access., Starting on Tue06/26/23 at 0354, After administration, attempt intravenous access and start D5W at 100 mL/hr. Repeat blood glucose in 15 minutes x2 and notify provider. glucose oral gel 15 g 15 g, Oral, As needed, low blood sugar, Starting on Tue06/26/23 at 0354, If blood glucose less than 50 mg/dL and patient ALERT and NOT NPO, give 2 tubes glucose gel. If blood glucose less than 70 mg/dL and patient ALERT and NOT NPO, give 1 tube glucose gel. Repeat blood glucose in 15 minutes. If blood glucose is less than 70 mg/dL, repeat treatment and recheck blood glucose in 15 minutes x2 and notify provider. hydrALAZINE (Apresoline) injection 10 mg(Linked Group 3) 10 mg, IntraVENous, Every 4 hours PRN, high blood pressure, For SBP > 180, hold for HR > 100, second line, Starting on Tue06/26/23 at 0357 labetalol (Normodyne,Trandate) injection 10 mg(Linked Group 3) 10 mg, IntraVENous, Every 6 hours PRN, high blood pressure, For SBP > 180, hold for HR < 60, first line, Starting on 06/26/23 at 0357 ondansetron (Zofran) injection 4 mg(Linked Group 4) 4 mg, IntraVENous, Every 6 hours PRN, nausea, vomiting, Starting on 06/26/23 at 0348, 1st Line. Give IV if patient is unable to take orally. If inadequate response within 60 minutes, proceed to next-line agent or contact provider if no further options ordered. ondansetron ODT (Zofran-ODT) disintegrating tablet 4 mg(Linked Group 4) 4 mg, Oral, Every 8 hours PRN, nausea, vomiting, Starting on 06/26/23 at 0348, 1st Line. If inadequate response within 60 minutes, proceed to next-line agent or contact provider if no further options ordered. Patient should allow tablet to dissolve on tongue. Do not remove from blister pack until just before administering. perflutren protein A microsphere (Optison) 3 mL in sodium chloride (PF) 0.9 % 10 mL IV syringe (COMPLETED) 0-10 mL, IntraVENous, IMG once PRN, other, Suboptimal echo image, Starting on 06/27/23 at 0842, For 1 dose, CV Procedural Medications, Administer via slow IVP for suboptimal echocardiogram enhancement. May administer as divided doses to reach optimal image enhancement 0842 (Given - Provid er: Celina Sequeira RN) polyethylene glycol (PEG) 3350 (Miralax) packet 17 g 17 g, Oral, Daily PRN, constipation, Starting on 06/26/23 at 0348, 1st line for treatment of constipation - give scheduled if no bowel movement in past 24 hours. Linked Groups Order Group 1: pantoprazole (ProtoNix) EC tablet 40 mgJump to med 40 mg, Oral, Nightly, First dose on 06/26/23 at 2100, Do not crush, chew, or split. Or pantoprazole (ProtoNix) 40 mg in sodium chloride (PF) 0.9 % 10 mL injectionJump to med 40 mg, IntraVENous, Administer over 2 Minutes, Nightly, First dose on 06/26/23 at 2100, Give only if unable to tolerate po. Group 2: acetaminophen (Tylenol) tablet 650 mgJump to med 650 mg, Oral, Every 6 hours PRN, mild pain (1-3), fever, For temp greater than 100.4 F (38 C), Starting on 06/26/23 at 0348, Maximum dose of acetaminophen is 4000 mg from all sources in 24 hours. Or acetaminophen (Tylenol) suppository 650 mgJump to med 650 mg, Rectal, Every 6 hours PRN, mild pain (1-3), fever, For temp greater than 100.4 F (38 C), Starting on 06/26/23 at 0348, Administer if oral route cannot be used. Maximum dose of acetaminophen is 4000 mg from all sources in 24 hours. Group 3: labetalol (Normodyne,Trandate) injection 10 mgJump to med 10 mg, IntraVENous, Every 6 hours PRN, high blood pressure, For SBP > 180, hold for HR < 60, first line, Starting on 06/26/23 at 0357 Or hydrALAZINE (Apresoline) injection 10 mgJump to med 10 mg, IntraVENous, Every 4 hours PRN, high blood pressure, For SBP > 180, hold for HR > 100, second line, Starting on 06/26/23 at 0357 Group 4: ondansetron ODT (Zofran-ODT) disintegrating tablet 4 mgJump to med 4 mg, Oral, Every 8 hours PRN, nausea, vomiting, Starting on 06/26/23 at 0348, 1st Line. If inadequate response within 60 minutes, proceed to next-line agent or contact provider if no further options ordered. Patient should allow tablet to dissolve on tongue. Do not remove from blister pack until just before administering. Or ondansetron (Zofran) injection 4 mgJump to med 4 mg, IntraVENous, Every 6 hours PRN, nausea, vomiting, Starting on 06/26/23 at 0348, 1st Line. Give IV if patient is unable to take orally. If inadequate response within 60 minutes, proceed to next-line agent or contact provider if no further options ordered. Care Teams (unrecognized sec tion and content) FOR RECORDS PERTAINING TO PATIENTS WHO ARE OR HAVE BEEN ENROLLED IN A CHEMICAL DEPENDENCY/SUBSTANCEABUSE PROGRAM, SOME INFORMATION MAY BE OMITTED. This clinical summary was aggregated from multiple sources. Caution should be exercised in using it in the provision of clinical care. This summary normalizes information from multiple sources, and as a consequence, information in this document may materially change the coding, format and clinical context of patient data. In addition, data may be omitted in some cases. CLINICAL DECISIONS SHOULD BE BASED ON THE PRIMARY CLINICAL RECORDS. [facility]. provides no warranty or guarantee of the accuracy or completeness of information in this document.
[2023-06-30 16:51] LABS: ALB/GLOB Ratio 0.9 RATIO (0.9-2.4); AST(SGOT) 23 U/L (15-37); Alanine Aminotransfer ALT/SGPT 29 U/L (16-61); Albumin, Serum 3.6 g/dL (3.2-5.0); Alkaline Phosphatase 97 U/L (45-117); Anion Gap 3 (5-15); BUN 18 mg/dL (7-18); BUN/Creat Ratio 17.1 RATIO (10-20); Calcium,Total 9.3 mg/dL (8.5-10.1); Chloride 103 mmol/L (98-107); Cholesterol 176 mg/dL (200); Creatinine, Serum 1.05 mg/dL (0.70-1.30); EST Glomerular Filtration Rate 75 mL/min (>60); Est Glom Filt Rate - Afr Amer 91 mL/min (>60); Globulin 4.1 g/dL (2.2-4.2); Glucose 94 mg/dL (74-106); High Density Lipoprotein 62 mg/dL; PSA,Total - Annual Screen 2.26 ng/mL (0.00-4.00); Potassium 4.1 mmol/L (3.5-5.1); Protein, Total 7.7 g/dL (6.4-8.2); Sodium Level 137 mmol/L (136-145); Thyroid Stim Hormone (TSH) 1.37 uIU/mL (0.358-3.74); Triglycerides 56 mg/dL; Very Low Density Lipoprotein 11 mg/dL (5-40)
== END | disposition home or self-care (01) ==
LOC: POLAB3 15:18
PROVIDERS: PCP Family Medicine Geriatric Medicine; Visit Provider Family Medicine Geriatric Medicine
DX: E78.5 Hyperlipidemia, unspecified (principal); I10 Essential (primary) hypertension; Z12.5 Encounter for screening for malignant neoplasm of prostate
CPT/HCPCS: 36415; 80053; 80061; 84153; 84443; G0103

== ENCOUNTER → 2023-07-20 | Outpatient (CLI) | payer MEDICARE, MEDICAID, SELFPAY ==
--- NOTE | 2023-07-20 13:57 | VDLE_ITS ---
Reason For Study: LLE Swelling RIGHT LEFT FV is compressible, spontaneous, phasic, GSV is normal. competent and demonstrates normal CFV is compressible, spontaneous, phasic, augmentation. competent, and demonstrates normal Procedure augmentation. This is a venous duplex using B-mode, color FV is compressible, spontaneous, phasic, flow and spectral Doppler. competent and demonstrates normal Exam performed in department. augmentation. The exam was diagnostic. POP V is compressible, spontaneous, phasic, A preliminary report was called and/or faxed competent and demonstrates normal to Dr. Romano's office. augmentation. T/P Trunk is compressible. PTV is compressible. LT PerV is compressible. VL/Venous Duplex US, Unilateral Interpretation Summary Deep veins of the left lower extremity are patent and compressible segmentally. There is no evidence of left lower extremity deep vein thrombosis. The left great saphenous vein chuck ears patent and compressible segmentally. Ordering Physician: Yuri Romano Chi Referring Physician: Yuri Romano Chi Performed By: Saqib Rosenberg RVT
== END | disposition home or self-care (01) ==
LOC: CVS 13:56
PROVIDERS: PCP Family Medicine Geriatric Medicine; Referring Provider Family Medicine Geriatric Medicine; Visit Provider Family Medicine Geriatric Medicine
DX: M79.89 Other specified soft tissue disorders (principal)
CPT/HCPCS: 93971

== ENCOUNTER → 2024-05-21 | Outpatient (CLI) | payer SELFPAY ==
[2024-05-21 14:53] LABS: Absolute Lymphocyte Count 1.86 X10^3/uL (0.83-4.51); Absolute Neutrophil Count 5.2 X10^3/uL (2.0-7.7); Basophil# 0.06 X10^3/uL; Basophil% 0.8 % (0-1); Eosinophil# 0.23 X10^3/uL; Hematocrit 44.1 % (40-54); Hemoglobin 15.2 g/dL (13.0-16.5); Lymphocyte # 1.86 X10^3/ul (0.83-4.51); Mean Corp Hgb Conc 34.5 g/dL (32-36); Mean Corpuscular Hgb 32.1 pg (27.0-32.0); Mean Corpuscular Volume 93.2 fL (80-94); Mean Platelet Vol. 9.5 fl (6.2-12.0); Monocyte# 0.35 X10^3/uL; Monocyte% 4.5 % (0-10); NRBC Flagged by Analyzer 0 % (0-5); Neutrophil # 5.22 X10^3/uL (2.7-7.7); Neutrophil % 67.2 % (47-70); Platelet Count 338 K/mm3 (150-450); RBC Distribution Width CV 12.1 % (11.6-14.6); RBC Distribution Width SD 41.8 fl (35.1-43.9); Red Blood Count 4.73 M/mm3 (4.6-6.2); White Blood Count 7.8 K/mm3 (4.4-11.0)
[2024-05-21 16:09] LABS: Vitamin D,25 Hydroxy 38.6 ng/mL
[2024-05-21 16:20] LABS: ALB/GLOB Ratio 0.9 RATIO (0.9-2.4); AST(SGOT) 41 U/L (15-37); Alanine Aminotransfer ALT/SGPT 62 U/L (16-61); Albumin, Serum 3.4 g/dL (3.2-5.0); Alkaline Phosphatase 92 U/L (45-117); Anion Gap 4 (5-15); BUN 17 mg/dL (7-18); BUN/Creat Ratio 21.2 RATIO (10-20); Calcium,Total 9.5 mg/dL (8.5-10.1); Chloride 106 mmol/L (98-107); Cholesterol 160 mg/dL (200); EST Glomerular Filtration Rate 102 mL/min (>60); Est Glom Filt Rate - Afr Amer 124 mL/min (>60); Globulin 3.9 g/dL (2.2-4.2); Glucose 99 mg/dL (74-106); High Density Lipoprotein 71 mg/dL; Protein, Total 7.3 g/dL (6.4-8.2); Sodium Level 138 mmol/L (136-145); Triglycerides 60 mg/dL; Very Low Density Lipoprotein 12 mg/dL (5-40)
[2024-05-21 16:34] LABS: Amphetamine Urine VISTA NEGATIVE (<1000 ng/mL); Barbiturate Urine VISTA NEGATIVE (< 200 ng/mL); Benzodiazepine Urine VISTA NEGATIVE (< 200 ng/mL); Cocaine Urine VISTA NEGATIVE (< 300 ng/mL); Ecstacy Urine VISTA NEGATIVE (< 500 ng/mL); Methadone Urine VISTA NEGATIVE (< 300 ng/mL); PCP Urine VISTA NEGATIVE (< 25 ng/mL); THC Urine VISTA NEGATIVE (< 50 ng/mL); Vista UDS pH Range 6
== END | disposition home or self-care (01) ==
PROVIDERS: PCP Family Medicine Geriatric Medicine; Visit Provider Family Medicine Geriatric Medicine
DX: E78.5 Hyperlipidemia, unspecified (principal); E55.9 Vitamin D deficiency, unspecified; I10 Essential (primary) hypertension; F12.10 Cannabis abuse, uncomplicated
CPT/HCPCS: 36415; 80053; 80061; 80307; 82306; 84443; 85025

== ENCOUNTER → 2024-05-24 | Outpatient (CLI) | payer SELFPAY ==
[2024-05-25 07:09] LABS: HEPATITIS B SURFACE AG Negative (Negative); Hep C Antibodies Non Reactive (Non Reactive); Hepatitis A IgM Antibody Negative (Negative); Hepatitis B Core AB IgM Negative (Negative)
== END | disposition home or self-care (01) ==
LOC: POLAB3 12:00
PROVIDERS: PCP Family Medicine Geriatric Medicine; Visit Provider Family Medicine Geriatric Medicine
DX: R74.8 Abnormal levels of other serum enzymes (principal)
CPT/HCPCS: 36415; 80074

== ENCOUNTER → 2024-05-29 | Outpatient (CLI) | payer MEDICARE, SELFPAY ==
--- NOTE | 2024-05-29 07:22 | US_ITS ---
STUDY: ABDOMINAL ULTRASOUND - RIGHT UPPER QUADRANT REASON FOR VISIT: Male, 64 years old ELEVATED LIVER ENZYMES TECHNIQUE: Ultrasound evaluation of the right upper quadrant was performed with real-time and static vargas-scale imaging. TECHNICAL QUALITY: Adequate. COMPARISON: None. FINDINGS: Liver: The liver measures 13.1 cm. There is normal echogenicity of the liver. The bile ducts are within normal limits. There is hepatic color flow. The direction of portal flow is hepatopetal. There is no demonstrated mass lesion. Gallbladder: Normal distended gallbladder. The gallbladder wall measures 2 mm. There is a negative sonographic Goddard''s sign. There is no pericholecystic fluid. There are no gallstones. Common Bile Duct (C.B.D.): The common bile duct measures 4 mm. Pancreas: There is nonvisualization of the pancreas. Right Kidney: Normal size of the right kidney. The right kidney measures 10.8 cm x 4 cm x 5.3 cm. Normal renal cortex. The right cortex measures 1.3 cm. There is no demonstrated renal mass or cyst. There is no right hydronephrosis. There is a 7 mm x 8 mm x 8 mm nonobstructive right renal calculus. US/Abdomen Limited IMPRESSION: Nonobstructive right intrarenal calculus. Electronically Signed: Ronald Montilla MD at 10:37 EST ,
== END | disposition home or self-care (01) ==
LOC: US 07:21
PROVIDERS: PCP Family Medicine Geriatric Medicine; Referring Provider Family Medicine Geriatric Medicine; Visit Provider Family Medicine Geriatric Medicine
DX: R74.8 Abnormal levels of other serum enzymes (principal)
CPT/HCPCS: 76705

== ENCOUNTER → 2024-06-14 | Outpatient (CLI) | payer MEDICARE, SELFPAY ==
--- NOTE | 2024-06-14 08:18 | CT_ITS ---
STUDY: LOW DOSE CT LUNG CANCER SCREENING REASON FOR EXAM: Male, 64 years old. One pack per day smoker x40 years RADIATION DOSAGE (If Supplied By Facility): CTDIvol = ( 3.02 ) mGy, DLP = ( 109.85 ) mGycm TECHNIQUE: No contrast was administered. Low dose technique was utilized (average mAS-38 and kVp 120). 1.25 mm axial source images with a slice interval of 1.25-mm were reconstructed in lung windows. 2.5 mm axial source images with a slice interval of 2.5-mm were reconstructed in lung windows. 5.0 mm axial source images with a slice interval of 5.0-mm were reconstructed in soft tissue windows. COMPARISON: 2020 FINDINGS: Lung windows show underlying emphysema with stable nonspecific pleural thickening in both hemithoraces. No organized infiltrate, effusion, or suspicious noncalcified mass or nodule. Stable calcified granuloma in the left lung base. Overall, lung rausch show no significant interval change since the previous study. Limited soft tissue windows show normal-appearing thyroid gland. No suspicious adenopathy. There are stable subcentimeter in short axis dimension likely reactive mediastinal lymph nodes. Normal tapering of the thoracic aorta. Calcified coronary vessels are noted. Limited cuts through the upper abdomen do not show a suspicious abnormality. There are nonobstructing right renal stones. CT/Low Dose CT Lung Screening IMPRESSION: Lung-RADS category 1 - Continue annual screening with LDCT in 12 months. IMPORTANT NOTES FOR USE: ACR Lung-RADS Version 1.1 Assessment Categories Release Date: 2018 Category: Coded 0-4 bases on nodule(s) with highest degree of suspicion. Negative screen is defined as categories 1 and 2; a positive screen is defined as categories 3 and 4. Category 3 and 4A nodules that are unchanged on interval CT should be coded as category 2, and individuals returned to screening in 12 months. Category 4X: Category 3 or 4 nodules with additional imaging findings that increase the suspicion of lung cancer, such as spiculation, GGN that doubles in size in 1 year, enlarged lymph notes, etc. Category Modifiers: S (significant finding unrelated to lung cancer) Electronically Signed: Matheus Glez MD at 8:59 EST ,
== END | disposition home or self-care (01) ==
PROVIDERS: PCP Family Medicine Geriatric Medicine; Referring Provider Family Medicine Geriatric Medicine; Visit Provider Family Medicine Geriatric Medicine
DX: Z12.2 Encounter for screening for malignant neoplasm of respiratory organs (principal); F17.210 Nicotine dependence, cigarettes, uncomplicated
CPT/HCPCS: 71271